=== PATIENT | male | born 1975 | race Caucasian/White ===

== ENCOUNTER 2016-11-22 11:07 | Emergency (ER) | payer OTHER ==
[2016-11-22 11:17] VITALS: BP 154/82; PULSE 79; O2SAT 97
[2016-11-22] MEDS ORDERED: ULTRAM 50 MG PO ONE (11:25)
[2016-11-22] MEDS ORDERED: ULTRAM 50 MG ONE (11:28)
--- NOTE | 2016-11-22 11:34 | ERPHSYRPT ---
- History of Present Illness Time Seen by Provider: 11/22/16 11:20 Source: patient Exam Limitations: clinical condition Patient Subjective Stated Complaint: PT REPORTS LEFT KNEE PAIN ET SWELLING-HAD RAD DONE-QUESTIONS QUALITY OF X-RAY-DX WITH [facility]-SET UP WITH PT-REPORTS PAIN HAS NOT GOTTEN BETTER-DENIES FURTHER INJURY Triage Nursing Assessment: PT PINK WARM ET DRY-NO OBVIOUS DEFORMITY-NO OBVIOUS SWELLING-PT ABLE TO MOVE EXTREMITY Physician History: PATIENT WITH A HISTORY OF DEGENERATIVE ARTHRITIS COMPLAINS OF LEFT KNEE PAIN WITH SWELLING OVER PAST 2 WEEKS. HAS PAIN UPON WEIGHT BEARING. DENIES TRAUMA OR INJURY. Method of Injury: unknown Occurred: other (PAIN FOR 2 WEEKS.) Quality: sharpness Severity of Pain-Max: moderate Severity of Pain-Current: moderate Lower Extremities Pain: knee: left Modifying Factors: Improves With: movement Associated Symptoms: unable to bear weight Allergies/Adverse Reactions: No Known Drug Allergies Allergy (Verified 07/03/15 02:16) Home Medications: Armodafinil [Nuvigil] 250 mg PO DAILY 11/22/16 [History] Chlorthalidone 25 mg PO BID 11/22/16 [History] Fluticasone/Salmeterol 115/21* [Advair Hfa 115/21 Mcg Inhaler] 1 puff IH UD 11/22/16 [History] Minoxidil 10 mg PO DAILY 11/22/16 [History] Spironolactone [Aldactone] 50 mg PO BID 11/22/16 [History] Torsemide [Demadex] 20 mg PO BID 11/22/16 [History] Hx Tetanus, Diphtheria Vaccination/Date Given: Yes Hx Influenza Vaccination/Date Given: No Hx Pneumococcal Vaccination/Date Given: No Immunizations Up to Date: Yes - Review of Systems Constitutional: No Fever, No Chills Eyes: No Symptoms Ears, Nose, & Throat: No Symptoms Respiratory: No Cough, No Dyspnea Cardiac: No Chest Pain, No Edema, No Syncope Abdominal/Gastrointestinal: No Abdominal Pain, No Nausea, No Vomiting, No Diarrhea Genitourinary Symptoms: No Dysuria Musculoskeletal: Joint Pain, Joint Swelling, No Back Pain, No Neck Pain Skin: No Rash Neurological: No Symptoms, No Dizziness, No Focal Weakness, No Sensory Changes Psychological: No Symptoms Endocrine: No Symptoms All Other Systems: Reviewed and Negative - Past Medical History Pertinent Past Medical History: Yes Neurological History: No Pertinent History ENT History: No Pertinent History Cardiac History: Hypertension, Myocardial Infarction ([place]), Other Respiratory History: Asthma, COPD, Sleep Apnea Endocrine Medical History: Adrenal Insufficiency, Diabetes Type II Musculoskeletal History: Osteoarthritis GI Medical History: No Pertinent History History: Renal Disease Psycho-Social History: No Pertinent History Male Reproductive Disorders: No Pertinent History Other Medical History: ENLARGED HEART - Past Surgical History Past Surgical History: Yes Neuro Surgical History: No Pertinent History Cardiac: Cardiac Catheterization Respiratory: No Pertinent History Gastrointestinal: No Pertinent History Genitourinary: No Pertinent History Musculoskeletal: No Pertinent History Male Surgical History: No Pertinent History Other Surgical History: recent removal of toe nail - Social History Smoking Status: Former smoker Exposure to second hand smoke: Yes Alcohol Use: None Drug Use: none Patient Lives Alone: No Significant Family History: heart disease, hypertension - Nursing Vital Signs Nursing Vital Signs: Initial Vital Signs Temperature 97.7 F Temperature Source Oral Pulse Rate 79 Respiratory Rate 22 Blood Pressure [Right Arm] 154/82 Pain Intensity 10 - Physical Exam General Appearance: no apparent distress Knees Exam: left knee: pain (PATELLA MIDLINE AND MOBILE, PAIN UPON PASSIVE RANGE OF MOTION, MINIMAL JOINT LAXITY UPON VARUS/VALGUS STRESS, NEGATIVE ANTERIOR DRAW SIGN. TENDERNESS MEDIAL/LATERAL FEMORAL CONDYLE), soft tissue tenderness, swelling Ankle Exam: left ankle: other (LEFT PEDIS PULSE 2+) SpO2 Interpretation: normal SpO2: 97 Oxygen Delivery: Room Air Ordered Tests: Active Orders 24 hr Category Date Time Status Crutches STAT Care 11/22/16 11:26 Ordered Medication Summary Discontinued Medications Generic Name Dose Route Start Last Admin Trade Name Freq PRN Reason Stop Dose Admin Tramadol HCl 50 mg 11/22/16 11:25 Ultram 50 Mg PO 11/22/16 11:26 STAT ONE - Progress Progress Note: 11/22/16 11:37 PATIENT GIVEN ULTRAM 50MG ORALLY, CRUTCHES WILL NOT SUPPORT WEIGHT 300LBS, REVIEW OF LEFT KNEE XRAYS 11/15/16 C/W MINIMAL DEGENERATIVE CHANGES, THERE IS A 2.5CM WELL CIRCUMSCRIBED OSSIFICATION IN THE MID ANTERIOR JOINT SPACE Counseled pt/family regarding: diagnosis, need for follow-up - Departure Time of Disposition: 11:50 Departure Disposition: Home Clinical Impression: CHRONIC LEFT KNEE PAIN Condition: Stable Critical Care Time: No Additional Instructions: AMBULATE USING WALKER ASSISTANCE NONWEIGHT BEARING LEFT LOWER EXTREMITY UNTIL EVALUATED BY YOUR PRIMARY CARE PROVIDER. ULTRAM 50MG EVERY 4 HOURS FOR PAIN. CONSULT YOUR PRIMARY CARE PROVIDER FOR REFERRAL TO ORTHOPEDIC SURGEON. Prescriptions: Tramadol HCl 50 mg [Ultram 50 mg] 50 mg PO Q4H PRN PRN #20 tablet PRN Reason: Pain
== END 2016-11-22 12:12 | disposition home or self-care (01) ==
LOC: ED 11:07
DX: M25.562 Pain in left knee (principal); G89.29 Other chronic pain
CPT/HCPCS: 99283; A9270-GY

== ENCOUNTER 2017-06-02 15:39 | Emergency (ER) | payer OTHER ==
[2017-06-02] MEDS ORDERED: NORCO 5/325 MG PO ONE (16:31)
[2017-06-02] MEDS ORDERED: NORCO 5/325 MG ONE (16:33)
--- NOTE | 2017-06-02 16:37 | ERPHSYRPT ---
- History of Present Illness Source: patient Exam Limitations: no limitations Patient Subjective Stated Complaint: pt states fell when walking unknown cause denies any erazo at time. pt reports pain to left hip, left knee and lower leg. 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 pt states no numbness or tingling noted no obvious deformity. pt will not attempt to move side due to pain Timing/Duration: today Severity: moderate Associated Symptoms: No vomiting, No abdominal pain, No shortness of breath, No headaches, No syncope Hx Tetanus, Diphtheria Vaccination/Date Given: Yes Hx Influenza Vaccination/Date Given: No Hx Pneumococcal Vaccination/Date Given: No <JOSSELIN CHAVIRA - Last Filed: 06/02/17 18:42> <NOMRA BE - Last Filed: 06/02/17 20:10> - History of Present Illness Time Seen by Provider: 06/02/17 16:32 Physician History: mild to mod constant and positional ache left leg today after trip and fall, no bleeding, no neck pain, no loc, no other injury (JOSSELIN CHAVIRA) Allergies/Adverse Reactions: No Known Drug Allergies Allergy (Verified 07/03/15 02:16) Home Medications: Armodafinil [Nuvigil] 250 mg PO DAILY 11/22/16 [History] Chlorthalidone 25 mg PO DAILY 11/22/16 [History] Fluticasone/Salmeterol 115/21* [Advair Hfa 115/21 Mcg Inhaler] 1 puff IH UD 11/22/16 [History] Minoxidil 10 mg PO DAILY 11/22/16 [History] Spironolactone [Aldactone] 50 mg PO BID 11/22/16 [History] Torsemide [Demadex] 20 mg PO BID 11/22/16 [History] Carvedilol 6.25 mg [Coreg 6.25 MG] 25 mg PO BID 06/02/17 [History] - Review of Systems Constitutional: No Symptoms Eyes: No Symptoms Ears, Nose, & Throat: No Symptoms Respiratory: No Symptoms Cardiac: No Symptoms Abdominal/Gastrointestinal: No Symptoms Musculoskeletal: Back Pain, Fall, Joint Pain, No Neck Pain, No Deformity Skin: No Symptoms Neurological: No Dizziness Psychological: No Symptoms <JOSSELIN CHAVIRA - Last Filed: 06/02/17 18:42> - Past Medical History Pertinent Past Medical History: Yes Neurological History: Peripheral Neuropathy ENT History: No Pertinent History Cardiac History: Hypertension, Myocardial Infarction ([place]) Respiratory History: Asthma, Sleep Apnea Endocrine Medical History: Adrenal Insufficiency, Diabetes Type II Musculoskeletal History: Osteoarthritis GI Medical History: No Pertinent History History: Renal Disease Psycho-Social History: No Pertinent History Male Reproductive Disorders: No Pertinent History Other Medical History: Stage 4 kidney disease, [place] x 2, - Past Surgical History Past Surgical History: Yes Neuro Surgical History: No Pertinent History Cardiac: Cardiac Catheterization Respiratory: No Pertinent History Gastrointestinal: No Pertinent History Genitourinary: No Pertinent History Musculoskeletal: No Pertinent History Male Surgical History: No Pertinent History Other Surgical History: recent removal of toe nail - Social History Smoking Status: Former smoker Exposure to second hand smoke: Yes Alcohol Use: None Drug Use: none Patient Lives Alone: No Significant Family History: heart disease, hypertension <JOSSELIN CHAVIRA - Last Filed: 06/02/17 18:42> - Physical Exam General Appearance: no apparent distress Neck Exam: normal inspection Respiratory Exam: normal breath sounds Cardiovascular Exam: regular rate/rhythm Gastrointestinal/Abdomen Exam: soft, No tenderness Back Exam: No CVA tenderness, No vertebral tenderness Extremity Exam: pelvis stable, limited range of motion, tenderness, No normal range of motion, No pedal edema Neurologic Exam: alert, oriented x 3, cooperative Skin Exam: normal color, warm, dry Oxygen Delivery: Room Air <JOSSELIN CHAVIRA - Last Filed: 06/02/17 18:42> - Nursing Vital Signs Nursing Vital Signs: Initial Vital Signs Temperature 97 F 06/02/17 15:39 Pulse Rate 86 06/02/17 15:39 Respiratory Rate 18 06/02/17 15:39 Blood Pressure 178/89 06/02/17 15:39 Pain Scale Pain Intensity 10 - Radiology Exams Left Hip X-ray Interpretation: Interpreted by me, Negative, No Fracture, No Subluxation Knee X-ray Interpretation: Negative, No Fracture Right Hip X-ray Interpretation: Negative, No Fracture - CT Exams Lumbar Spine CT Interpretation: Discussed w/radiologist, KATHERIN (NO FRACTURE OR SUBLUXATION, SPINAL CANAL STENOSIS) <NORMA BE - Last Filed: 06/02/17 20:10> Ordered Tests: Active Orders 24 hr Category Date Time Status Crutches STAT Care 06/02/17 20:05 Ordered HIP UNI (2V) INCL PEL IF DONE Stat Exams 06/02/17 16:30 Taken KNEE (3 VIEWS) Stat Exams 06/02/17 16:31 Taken LUMBAR SPINE W/O [CT] Stat Exams 06/02/17 16:30 Taken Medication Summary Discontinued Medications Generic Name Dose Route Start Last Admin Trade Name Uzma PRN Reason Stop Dose Admin Hydrocodone Bitart/Acetaminophen 1 tab 06/02/17 16:31 06/02/17 16:34 Wilson 5/325 Mg PO 06/02/17 16:32 1 tab STAT ONE Administration Hydrocodone Bitart/Acetaminophen Confirm 06/02/17 16:33 Wilson 5/325 Mg Administered 06/02/17 16:34 Dose 1 tab .ROUTE .STK-MED ONE <JOSSELIN CHAVIRA - Last Filed: 06/02/17 18:42> - Progress Counseled pt/family regarding: diagnosis, need for follow-up <NORMA BE - Last Filed: 06/02/17 20:10> - Progress Progress Note: 06/02/17 18:[address] Be at 19:00 (JOSSELIN CHAVIRA) 06/02/17 19:[address] W/O CONTRAST CONSISTENT WITH NEGATIVE FRACTURE OR SUBLUXATION, L3-L5 DDD, AND SPINAL CANAL STENOSIS BILAT HIPS WITHOUT FRACTURE OR DISLOCATION. LEFT KNEE NO EVIDENCE OF FRACTURE OR DISLOCATION, DEGENERATIVE CHANGES (NORMA BE) <JOSSELIN CHAVIRA - Last Filed: 06/02/17 18:42> - Departure Time of Disposition: 20:10 Departure Disposition: Home Critical Care Time: No <NORMA BE - Last Filed: 06/02/17 20:10> - Departure Clinical Impression: ACUTE LUMBAR STRAIN, INTERNAL DERANGEMENT LEFT KNEE, BILATERAL HIP CONTUSION/ STRAIN Condition: Stable Referrals: ATTILA RÍOS [Primary Care Provider] - Additional Instructions: AMBULATE USING CRUTCHES NONWEIGHT BEARING LEFT LEG FOR 5 DAYS. APPLY ICE OVER KNEE SWELLING EVERY 4 HOURS, 30 MINUTES FOR 48 HOURS. NORCO 10/325 EVERY 4 HOURS FOR PAIN. FOLLOWUP WITH YOUR ORTHOPEDIC SURGEON CONCERNING KNEE PAIN WITH SWELLING. Prescriptions: Hydrocodone/APAP 10/325 mg [Wilson 10/325 MG Tablet] 1 tab PO Q4H PRN PRN # 15 tablet PRN Reason: Pain
[2017-06-02 20:16] VITALS: BP 156/83; PULSE 83; O2SAT 95
--- NOTE | 2017-06-03 08:28 | XRAY ---
Indication: Pain following fall. Comparison: November 15, 2016. 3 views of the left knee again demonstrates mild tricompartmental degenerative changes and a fabella. No new/acute bony, articular, or soft tissue abnormalities.
--- NOTE | 2017-06-03 08:30 | XRAY ---
Indication: Pain following fall. Comparison: November 15, 2016. 2 views of the left hip obtained. Again no bony, articular, or soft tissue abnormalities.
--- NOTE | 2017-06-03 08:34 | XRAY ---
Indication: Low back/left hip pain following fall. Multiple contiguous axial images obtained through the lumbar spine. Sagittal and coronal reformatted images obtained. Comparison: None No acute fracture or suspicious bony lesions. There are multilevel broad-based disc bulge. Greatest extent seen at the L3-L5 levels along with bilateral degenerative facet arthropathy producing spinal canal stenosis. Sagittal and coronal reformatted images demonstrates normal alignment. Minimal L4-L5 disc space narrowing. No acute compression fracture or subluxation. Visualized noncontrasted soft tissues unremarkable. Impression: 1. Negative acute fracture/subluxation. 2. Multilevel degenerative disc disease greatest at the L3-L5 levels with there is spinal canal stenosis. Outpatient MRI may yield further information. CTDI 151.55
== END 2017-06-02 20:26 | disposition home or self-care (01) ==
LOC: ED 15:39
DX: S39.012A Strain of muscle, fascia and tendon of lower back, initial encounter (principal); M23.92 Unspecified internal derangement of left knee; S70.02XA Contusion of left hip, initial encounter; S70.01XA Contusion of right hip, initial encounter; S73.102A Unspecified sprain of left hip, initial encounter; S73.101A Unspecified sprain of right hip, initial encounter; W01.0XXA Fall on same level from slipping, tripping and stumbling without subsequent striking against object, initial encounter
CPT/HCPCS: 72131; 73502; 73562; 99283; A9270-GY

== ENCOUNTER 2018-04-09 10:04 | Day surgery (SDC) | payer OTHER ==
--- NOTE | 2018-04-09 07:50 | HP ---
DATE OF SURGERY: 04/09/2018 HISTORY OF PRESENT ILLNESS: The patient is a 42 year-old with enlarging lesion on the scalp area with intermittent bleeding. The patient shaves his head. He is in need for definitive excision. He also has a left arm lesion also needing excision. PAST MEDICAL HISTORY: He has had some hypertension, narcolepsy, onychomycosis of toenail. He had some congestive heart failure in the past. He had some dental problems in the past. He also had some history of gout in the past. PAST SURGICAL HISTORY: MEDICATIONS: Torsemide, Spironolactone, Nitro-Stat PRN, minoxidil, Metformin, chlorthalidone, carvedilol, armodafinil, Allopurinol, Advair HFA. ALLERGIES: NKDA. FAMILY HISTORY: Negative in regards to this problem. SOCIAL HISTORY: He is a former smoker denies alcohol abuse. REVIEW OF SYSTEMS: Twelve systems reviewed. No chest pain or palpitations other systems negative or noncontributory as above and per preadmission questionnaire. PHYSICAL EXAMINATION: GENERAL: No acute distress. HEENT: Sclerae nonicteric. Intermittent bleeding of enlarging scalp lesion. NECK: No JVD. CHEST: Equal excursion, nonlabored breathing. CVS: Regular rate and rhythm. ABDOMEN: Soft, nondistended. EXTREMITIES: Left arm lesion indeterminate etiology smaller than the scalp. NEURO: Alert, oriented, moving extremities symmetrically. IMPRESSION: Enlarging, intermittent bleeding lesion of scalp in need of definitive excision as well as left arm lesion indeterminate etiology. I feel he would benefit from excision of both, possible flap depending on operative findings. Risks and benefits explained in detail including but not limited to bleeding or infection, risk of wound dehiscence possibly requiring packing, healing by secondary intent, possibly need for flap, risk of failure to heal, risk of aches, pains, burning or numbness possibly senior care in nature. He understands possible risk should there be any malignancy, risk of involved margins possibly requiring other procedures or ongoing morbidity, general risk of anesthesia or sedation but not limited to. He understands and agrees to the planned procedure, will proceed with outpatient excisional biopsy of enlarging symptomatic intermittent bleeding scalp lesion and left arm lesion possible flap as an outpatient.
[~2018-04-09 10:04] MED LIST: Lactated Ringers 1,000 ML IV ONE; Lactated Ringers 1,000 ML IV SCH; Sensorcaine 0.25% 10 ML ONE
[2018-04-09] MEDS ORDERED: Ketamine HCl 50 MG/ML IV ONE (10:05)
[2018-04-09] MEDS ORDERED: TORAdol 30 mg Injection IV ONE (10:05)
[2018-04-09] MEDS ORDERED: Zofran 4 MG/2 ML VIAL IV ONE (10:05)
[2018-04-09] MEDS ORDERED: Versed 2 MG/2 ML Injection IV ONE (10:05)
[2018-04-09] MEDS ORDERED: SUBLIMAZE 100 MCG/2 ML IV ONE (10:05)
[2018-04-09] MEDS ORDERED: Decadron 4 MG INJ IV ONE (10:05)
[2018-04-09] MEDS ORDERED: Sensorcaine 0.25% 10 ML ONE (12:42)
[2018-04-09] MEDS ORDERED: XYLOCAINE 1% HCL 20 ML MDV ONE (12:44)
[2018-04-09] MEDS ORDERED: MORPHINE SULFATE 2 MG INJ IV PRN (13:49)
[2018-04-09] MEDS ORDERED: NORCO 5/325 MG PO PRN (13:50)
[2018-04-09] MEDS ORDERED: MORPHINE SULFATE 4 MG INJ ONE (13:52)
[2018-04-09 14:22] VITALS: BP 142/86; PULSE 82; O2SAT 92
--- NOTE | 2018-04-10 08:18 | OP ---
SURGERY DATE/TIME: 04/09/2018 1256 PREOPERATIVE DIAGNOSES: 1) Enlarging, intermittent bleeding, scalp lesion of indeterminate etiology. 2) Increasingly painful, enlarging left arm lesion. POSTOPERATIVE DIAGNOSES: 1) Enlarging, intermittent bleeding, scalp lesion of indeterminate etiology. 2) Increasingly painful, enlarging left arm lesion. PROCEDURES: 1) Excisional biopsy of intermittent bleeding scalp lesion with intermediate closure (1 cm with margins). 2) Excisional biopsy of painful left arm lesion with intermediate closure (1 cm with margins). SURGEON: Dr. Jayy Balkely. ANESTHESIA: MAC, 1% lidocaine local. ESTIMATED BLOOD LOSS: Minimal. INDICATIONS: As noted above. Risks and benefits explained in detail and not limited to and consent obtained. DESCRIPTION OF PROCEDURE AND FINDINGS: The patient is taken to the operating room. MAC anesthesia induced. Given his body habitus and other issues anesthesia was concerned about putting under general anesthetic so did MAC anesthesia. He was prepped and draped in usual sterile fashion. After official time out and no disagreement with planned procedure, 1% lidocaine local infiltrated in field pattern around the scalp area. Dissection carried out around this dissecting down to normal appearing deep subcutaneous tissue. This is about a 1 cm lesion with margins with about 3 cm long spindle-shaped excision pattern. It was a little bit snug given the location on the scalp but flaps were undermined on either side advanced back towards the midline with some interrupted 3-0 Vicryl. The skin was closed with interrupted vertical mattress and interrupted 3-0 and 4-0 Prolene, some antibiotic ointment, sterile pressure dressing applied at the end of the procedure and this all had been accomplished at 1% lidocaine local infiltrated around the wound prior to excising. Good hemostasis noted. The patient tolerated this part of the procedure well. Attention is then turned to the left arm. Gloves and instruments were changed. The area is anesthetized with 1% lidocaine local. Spindle-shaped excision pattern carried down to normal appearing deeper subcutaneous tissue passing the specimen off. It measured about 1 cm with margins about 3 cm long spindle-shaped excision pattern. Hemostasis controlled with some pin point cautery. Good hemostasis noted. The wound is then closed with interrupted 3-0 Vicryl. Deep superficial subcu in intermediate fashion advancing the flaps back towards the midline. The skin is closed with 4-0 Vicryl running subcuticular fashion, Steri-Strips, sterile pressure dressing applied. The patient tolerated the procedure well. There were no immediate complications. Findings discussed with the family out in the waiting area.
== END 2018-04-09 14:36 | disposition home or self-care (01) ==
LOC: SDC 10:04
PROVIDERS: ATTEND Surgery
DX: D23.4 Other benign neoplasm of skin of scalp and neck (principal); L98.8 Other specified disorders of the skin and subcutaneous tissue; R20.8 Other disturbances of skin sensation; M79.602 Pain in left arm; D18.01 Hemangioma of skin and subcutaneous tissue; R58 Hemorrhage, not elsewhere classified; I10 Essential (primary) hypertension; E11.9 Type 2 diabetes mellitus without complications; Z79.4 Long term (current) use of insulin; G47.419 Narcolepsy without cataplexy; B35.1 Tinea unguium; I50.9 Heart failure, unspecified; M10.9 Gout, unspecified; H15.89 Other disorders of sclera; Z79.899 Other long term (current) drug therapy; Z87.891 Personal history of nicotine dependence
CPT/HCPCS: 82962; 94250; J1100; J1885; J2250; J2270; J2405; J3010; A9270-GY

== ENCOUNTER 2018-06-19 13:27 | Emergency (ER) | payer OTHER ==
[2018-06-19 13:41] VITALS: O2SAT 98
--- NOTE | 2018-06-19 14:18 | ERPHSYRPT ---
- History of Present Illness Time Seen by Provider: 06/19/18 14:02 Source: patient Exam Limitations: no limitations Patient Subjective Stated Complaint: STATES COUGH AND SORE THROAT SINCE MONDAY Triage Nursing Assessment: TO ROOM PER EMS COT. SKIN W/D, COLOR NORMAL, RESP EASY. OCCASIONAL DRY BARKY COUGH NOTED. DENIES ANY OTHER SYMPTOMS Physician History: 43-year-old white male with history of peripheral neuropathy, myocardial infarction, asthma, sleep apnea, adrenal insufficiency, diabetes, osteoarthritis , renal disease (stage IV kidney disease), myocardial infarction. Patient arrives with complaint of cough sore throat some mild shortness of breath since Monday Patient states he has some discomfort in his upper chest with coughing not otherwise He has not had a fever Patient was given a DuoNeb treatment prior to arrival by medics Timing/Duration: day(s) Severity: moderate (2 days) Modifying Factors: Improves With: nothing Associated Symptoms: shortness of breath, cough, No nausea, No vomiting, No abdominal pain, No heartburn, No diaphoresis, No chills, No fever, No headaches , No loss of appetite, No malaise, No rash, No syncope, No seizure, No weakness Allergies/Adverse Reactions: No Known Drug Allergies Allergy (Verified 06/19/18 13:34) Home Medications: Armodafinil [Nuvigil] 250 mg PO DAILY 11/22/16 [History] Chlorthalidone 25 mg PO DAILY 11/22/16 [History] Fluticasone/Salmeterol 115/21* [Advair Hfa 115/21 Mcg Inhaler] 2 puff IH BID 11/22/16 [History] Minoxidil 10 mg PO DAILY 11/22/16 [History] Spironolactone [Aldactone] 50 mg PO BID 11/22/16 [History] Torsemide [Demadex] 20 mg PO BID 11/22/16 [History] Allopurinol [Zyloprim] 200 mg PO DAILY 04/03/18 [History] Carvedilol [Coreg] 25 mg PO BID 04/03/18 [History] Metformin HCl [Glucophage] 1,000 mg PO DAILY 04/03/18 [History] Nitroglycerin 0.4 mg (Ed) [Nitrostat 0.4 MG (ED)] 0.4 mg SL UD 04/03/18 [ History] Hx Tetanus, Diphtheria Vaccination/Date Given: Yes Hx Influenza Vaccination/Date Given: No Hx Pneumococcal Vaccination/Date Given: No Immunizations Up to Date: No - Review of Systems Constitutional: No Fever, No Chills Eyes: No Symptoms Ears, Nose, & Throat: Throat Pain, No Ear Pain, No Ear Discharge, No Hearing Changes, No Tinnitus, No Nose Pain, No Nose Congestion, No Nose Discharge, No Sinus Drainage, No Epistaxis, No Mouth Pain, No Mouth Swelling, No Loose Teeth, No Throat Swelling, No Hoarse, No Painful Swallowing, No Snoring Respiratory: Cough, Dyspnea, No Cyanosis, No Dyspnea on Exertion (SUTTON), No Stridor, No Wheezing Cardiac: No Chest Pain, No Edema, No Syncope Abdominal/Gastrointestinal: No Abdominal Pain, No Nausea, No Vomiting, No Diarrhea Genitourinary Symptoms: No Dysuria Musculoskeletal: No Back Pain, No Neck Pain Skin: No Rash Neurological: No Dizziness, No Focal Weakness, No Sensory Changes Psychological: No Symptoms Endocrine: No Symptoms All Other Systems: Reviewed and Negative - Past Medical History Pertinent Past Medical History: Yes Neurological History: No Pertinent History ENT History: No Pertinent History Cardiac History: Hypertension Respiratory History: Asthma, COPD, Sleep Apnea, Other Endocrine Medical History: Diabetes Type II Musculoskeletal History: Osteoarthritis GI Medical History: No Pertinent History History: Renal Disease Psycho-Social History: No Pertinent History Male Reproductive Disorders: No Pertinent History Other Medical History: Stage 4 kidney disease, NC x 2, narcolepsy - Past Surgical History Past Surgical History: Yes Neuro Surgical History: No Pertinent History Cardiac: Cardiac Catheterization Respiratory: No Pertinent History Gastrointestinal: No Pertinent History Genitourinary: No Pertinent History Musculoskeletal: Other Male Surgical History: No Pertinent History Other Surgical History: recent removal of toe nail, knee scope. - Social History Smoking Status: Never smoker Exposure to second hand smoke: Yes Alcohol Use: None Drug Use: none Patient Lives Alone: No Significant Family History: heart disease, hypertension - Nursing Vital Signs Nursing Vital Signs: Initial Vital Signs Temperature 98 F 06/19/18 13:28 Pulse Rate 97 H 06/19/18 13:28 Respiratory Rate 16 06/19/18 13:28 Blood Pressure 163/102 06/19/18 13:28 O2 Sat by Pulse Oximetry 98 06/19/18 13:28 Pain Scale Pain Intensity 0 - Physical Exam General Appearance: other (well-developed well-nourished obest white male, frequent cough) Eye Exam: PERRL/EOMI, eyes nml inspection Ears, Nose, Throat Exam: normal ENT inspection, TMs normal, pharynx normal, moist mucous membranes Neck Exam: normal inspection, non-tender, supple, full range of motion Respiratory Exam: normal breath sounds, lungs clear, No respiratory distress Cardiovascular Exam: regular rate/rhythm, normal heart sounds, normal peripheral pulses, capillary refill <2 sec Gastrointestinal/Abdomen Exam: soft, normal bowel sounds, No tenderness, No mass Back Exam: normal inspection, normal range of motion, No CVA tenderness, No vertebral tenderness Extremity Exam: normal inspection, normal range of motion, pelvis stable Neurologic Exam: alert, oriented x 3, cooperative, foreign agent II-XII nml as tested, normal mood/affect, nml cerebellar function, nml station & gait, sensation nml, No motor deficits Skin Exam: normal color, warm, dry, No rash Lymphatic Exam: No adenopathy SpO2 Interpretation: normal (98%Must decide) SpO2: 98 - Course Nursing assessment & vital signs reviewed: Yes EKG Interpreted by Me: RATE (85 bpm), Sinus Rhythm, NORMAL AXIS, 1st degree AV Block, Other (EKG: Sinus rhythm with first-degree AV block, 85 bpm, normal axis , no acute ST or T wave changes, compared to February 07, 2017) - Radiology Exams Chest X-ray Interpretation: Discussed w/ radiologist (chest x-ray: Impression: 1. Hypoinflated chest revealing no gross evididence of air space infiltrates, heart failure, or other acute cardiopulmonary disease.) Ordered Tests: Active Orders 24 hr Category Date Time Status EKG-ER Only STAT Care 06/19/18 15:06 Active IV Insertion STAT Care 06/19/18 14:14 Active Pulse Oximetry (ED) STAT Care 06/19/18 14:14 Active CHEST 1 VIEW (PORTABLE) Stat Exams 06/19/18 14:14 Completed BLOOD CULTURE Stat Lab 06/19/18 14:20 Received CBC W DIFF Stat Lab 06/19/18 14:20 Completed CMP Stat Lab 06/19/18 14:20 Completed NT PRO BNP Stat Lab 06/19/18 14:20 Completed TROPONIN Stat Lab 06/19/18 14:20 Completed VENOUS BLOOD GAS Stat Lab 06/19/18 14:25 Completed Medication Summary Discontinued Medications Generic Name Dose Route Start Last Admin Trade Name Uzma PRN Reason Stop Dose Admin Aspirin 243 mg 06/19/18 16:01 06/19/18 16:17 Baby Aspirin 81 Mg Chew PO 06/19/18 16:02 243 mg STAT ONE Administration Aspirin Confirm 06/19/18 16:13 Baby Aspirin 81 Mg Chew Administered 06/19/18 16:14 Dose 243 mg .ROUTE .STK-MED ONE Ceftriaxone Sodium/Dextrose 1 g in 50 mls @ 100 mls/hr 06/19/18 16:09 16:17 Rocephin 1 Gm-D5w 50 Ml Bag IV 06/19/18 16:38 100 ml/hr STAT STA 100 mls/hr Administration Ceftriaxone Sodium/Dextrose Confirm 06/19/18 16:13 Rocephin 1 Gm-D5w 50 Ml Bag Administered 06/19/18 16:14 Dose 1 g in 50 mls @ ud IV .STK-MED ONE Methylprednisolone Sodium Succinate 125 mg 06/19/18 16:09 06/19/18 16:17 Solu-Medrol 125 Mg IV 06/19/18 16:10 125 mg STAT ONE Administration Methylprednisolone Sodium Succinate Confirm 06/19/18 16:13 Solu-Medrol 125 Mg Administered 06/19/18 16:14 Dose 125 mg .ROUTE .STK-MED ONE Nicotine 21 mg 06/19/18 17:01 Nicoderm Cq 21 Mg TOP 06/19/18 17:02 STAT ONE Lab/Rad Data: Laboratory Result Diagrams 06/19/18 14:20 06/19/18 14:20 Laboratory Results 06/19/18 06/19/18 06/19/18 Range/Units 14:54 14:25 14:20 WBC (4.0-10.5) K/mm3 RBC (4.1-5.6) M/mm3 Hgb (12.5-18.0) gm/dl Hct (42-50) % MCV (78-100) fl MCH (26-32) pg MCHC (32-36) g/dl RDW (11.5-14.0) % Plt Count (150-450) K/mm3 MPV (6-9.5) fl Gran % (36.0-66.0) % Eos # (Auto) (0-0.5) Absolute Lymphs (auto) (1.0-4.6) Absolute Monos (auto) (0.0-1.3) Lymphocytes % (24.0-44.0) % Monocytes % (0.0-12.0) % Eosinophils % (0.00-5.0) % Basophils % (0.0-0.4) % Absolute Granulocytes (1.4-6.9) Basophils # (0-0.4) pO2/FiO2 Ratio 21.0 % VBG pH 7.40 (7.32-7.42) VBG pCO2 at Pat Temp 53 (42-55) mm/Hg VBG pO2 at Pat Temp 29 (25-40) mm/Hg VBG HCO3 32.8 H* (22-28) meq/L VBG O2 Sat (Elham) 60.9 L (95-100) VBG Base Excess 6.3 H (-2.0-2.0) VBG Hemoglobin 14.9 VBG Carboxyhemoglobin 2.2 (0.0-6.9) % T HGB POC Potassium 3.9 (3.5-5.1) Sodium 141 (137-145) mmol/L Potassium 4.1 (3.5-5.1) mmol/L Chloride 104 (98-107) mmol/L Carbon Dioxide 31 H (22-30) mmol/L Anion Gap 9.5 (5-15) MEQ/L BUN 22 H (9-20) mg/dL Creatinine 1.26 H (0.66-1.25) mg/dL Estimated GFR > 60.0 ML/MIN Glucose 105 (74-106) mg/dL Calcium 9.4 (8.4-10.2) mg/dL Total Bilirubin 0.40 (0.2-1.3) mg/dL AST 33 (17-59) U/L ALT 33 (0-50) U/L Alkaline Phosphatase 87 (38-126) U/L Troponin I 0.044 H* (0.000-0.034) ng/mL NT-Pro-B Natriuret Pep 47.1 (0-450) pg/mL Serum Total Protein 7.0 (6.3-8.2) g/dL Albumin 3.9 (3.5-5.0) g/dL Influenza Type A Ag NEGATIVE (NEGATIVE) Influenza Type B Ag NEGATIVE (NEGATIVE) RSV (PCR) NEGATIVE (Negative) Group A Strep Antibody NEGATIVE (NEGATIVE) 06/19/18 Range/Units 14:20 WBC 7.6 (4.0-10.5) K/mm3 RBC 4.91 (4.1-5.6) M/mm3 Hgb 13.8 (12.5-18.0) gm/dl Hct 42.1 (42-50) % MCV 85.7 (78-100) fl MCH 28.1 (26-32) pg MCHC 32.8 (32-36) g/dl RDW 15.2 H (11.5-14.0) % Plt Count 160 (150-450) K/mm3 MPV 10.2 H (6-9.5) fl Gran % 67.0 H (36.0-66.0) % Eos # (Auto) 0.30 (0-0.5) Absolute Lymphs (auto) 1.38 (1.0-4.6) Absolute Monos (auto) 0.78 (0.0-1.3) Lymphocytes % 18.3 L (24.0-44.0) % Monocytes % 10.3 (0.0-12.0) % Eosinophils % 4.0 (0.00-5.0) % Basophils % 0.4 (0.0-0.4) % Absolute Granulocytes 5.07 (1.4-6.9) Basophils # 0.03 (0-0.4) pO2/FiO2 Ratio % VBG pH (7.32-7.42) VBG pCO2 at Pat Temp (42-55) mm/Hg VBG pO2 at Pat Temp (25-40) mm/Hg VBG HCO3 (22-28) meq/L VBG O2 Sat (Elham) (95-100) VBG Base Excess (-2.0-2.0) VBG Hemoglobin VBG Carboxyhemoglobin (0.0-6.9) % T HGB POC Potassium (3.5-5.1) Sodium (137-145) mmol/L Potassium (3.5-5.1) mmol/L Chloride (98-107) mmol/L Carbon Dioxide (22-30) mmol/L Anion Gap (5-15) MEQ/L BUN (9-20) mg/dL Creatinine (0.66-1.25) mg/dL Estimated GFR ML/MIN Glucose (74-106) mg/dL Calcium (8.4-10.2) mg/dL Total Bilirubin (0.2-1.3) mg/dL AST (17-59) U/L ALT (0-50) U/L Alkaline Phosphatase (38-126) U/L Troponin I (0.000-0.034) ng/mL NT-Pro-B Natriuret Pep (0-450) pg/mL Serum Total Protein (6.3-8.2) g/dL Albumin (3.5-5.0) g/dL Influenza Type A Ag (NEGATIVE) Influenza Type B Ag (NEGATIVE) RSV (PCR) (Negative) Group A Strep Antibody (NEGATIVE) - Progress Progress: improved Progress Note: 06/19/18 16:10 43-year-old morbidly obese white male with history of peripheral neuropathy myocardial infarction asthma sleep apnea adrenal insufficiency diabetes type 2 osteoarthritis renal disease and a myocardial infarction 2 He arrives with complaint of a burning pain in his upper chest and throat with coughing symptoms for 2 days Patient was seen by medics prior to arrival given albuterol treatment and patient is now breathing much easier he does not appear to be in acute distress. Patient's EKG remarkable for sinus rhythm with first-degree AV block 85 bpm normal axis no acute ST or T wave changes chest x-ray was remarkable for hypoinflated chest revealing no gross evidence of airspace infiltrates heart daily or or other acute cardiopulmonary disease Patient's CBC was normal patient's venous gases pH 7.4 PCO2 53 Patient's chemistry essentially normal with the exception BUN was 22 creatinine 1.26 patient's troponin was slightly elevated at 0.044 BNP was normal at 47.1 patient's glucose was 105 strep and influenza were negative Patient was given aspirin to 43 mg orally he had already taken 81 mg at home today. I've discussed the case initially with Dr. 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 I contacted Dr. Adorno discussed the patient's case with him will transfer patient to [facility]. Patient will be given Solu-Medrol 125 mg IV also Rocephin 1 g IV in addition to the aspirin he is already received. Patient is stable with stable vitals he has no acute changes on his EKG. ... 06/19/18 16:17 I contacted [facility] one call discussed with Иван through the one call service. Patient will be auto accepted. Receiving doctor will be Dr. Gray. Patient will be transferred by ambulance. - Departure Time of Disposition: 17:00 Departure Disposition: Transfer ([facility]) Clinical Impression: Bronchitis with bronchospasm, Elevated troponin, Pain in throat and chest Condition: Fair Critical Care Time: No Referrals: ATTILA RÍOS [Primary Care Provider] -
[2018-06-19 14:27] LABS: VBG BASE EXCESS 6.3 (-2.0-2.0); VBG CARBOXYHEMOGLOBIN 2.2 % T HGB (0.0-6.9); VBG HCO3- 32.8 meq/L (22-28); VBG HEMOGLOBIN 14.9; VBG O2 SATURATION 60.9 (95-100); VBG POTASSIUM 3.9 (3.5-5.1); VBG pH 7.4 (7.32-7.42)
--- NOTE | 2018-06-19 15:02 | XRAY ---
Exam: AP upright portable chest film from 06/19/2018. Comparison: AP portable chest film from 02/27/2013. Indication: 43-year-old male with cough. The patient is noted to be large. The lungs are hypoinflated. The heart size appears at the upper limits of normal. There is some magnification on this AP portable chest radiograph obtained with a relatively poor inspiratory effort. This can accentuate the heart size. Minimal epicardial fat is seen at the left cardiophrenic angle. There is mild tortuosity of the descending thoracic aorta. The remainder of the josephine and mediastinal structures appears unremarkable. The lung esparza reveal no air space infiltrates, central vascular congestion, pneumothorax, or pleural fluid. I believe there is some minor vascular crowding at the lung bases, likely due to the poor level of inspiration. No acute osseous process is seen. Prominent lateral osteophyte formation is seen within the spine. Impression: 1. Hypoinflated chest revealing no gross evidence of air space infiltrates, heart failure, or other acute cardiopulmonary disease.
[2018-06-19 15:15] LABS: BASOPHIL % 0.4 % (0.0-0.4); Basophil (Absolute #) 0.03 (0-0.4); Granulocyte Absolute (ANC) 5.07 (1.4-6.9); Hematocrit 42.1 % (42-50); Hemoglobin 13.8 gm/dl (12.5-18.0); Lymphocyte (Absolute #) 1.38 (1.0-4.6); Lymphocytes % 18.3 % (24.0-44.0); Mean Cell Volume 85.7 fl (78-100); Mean Corpuscular Hemoglobin 28.1 pg (26-32); Mean Corpuscular Hgb Concent. 32.8 g/dl (32-36); Mean Platelet Volume 10.2 fl (6-9.5); Monocyte (Absolute #) 0.78 (0.0-1.3); Monocytes % 10.3 % (0.0-12.0); Platelet Count 160 K/mm3 (150-450); Red Blood Count 4.91 M/mm3 (4.1-5.6); Red Cell Distribution Width 15.2 % (11.5-14.0); White Blood Count 7.6 K/mm3 (4.0-10.5)
[2018-06-19 15:17] VITALS: PULSE 83
[2018-06-19 15:33] LABS: ALBUMIN 3.9 g/dL (3.5-5.0); ALKALINE PHOSPHATASE 87 U/L (38-126); ANION GAP 9.5 MEQ/L (5-15); BLOOD UREA NITROGEN 22 mg/dL (9-20); CHLORIDE 104 mmol/L (98-107); Calcium 9.4 mg/dL (8.4-10.2); Carbon Dioxide 31 mmol/L (22-30); Creatinine 1 1.26 mg/dL (0.66-1.25); Glucose 105 mg/dL (74-106); NT PRO BNP 47.1 pg/mL (0-450); Potassium 4.1 mmol/L (3.5-5.1); SGOT/AST 33 U/L (17-59); SGPT/ALT 33 U/L (0-50); SODIUM 141 mmol/L (137-145)
[2018-06-19 15:52] LABS: INFLUENZA A NEGATIVE (NEGATIVE); INFLUENZA B NEGATIVE (NEGATIVE); RESPIRATORY SYNCTIAL VIRUS NEGATIVE (Negative)
[2018-06-19 15:52] LABS: TROPONIN 0.044 ng/mL (0.000-0.034)
[2018-06-19] MEDS ORDERED: BABY ASPIRIN 81 MG CHEW PO ONE (16:01)
[2018-06-19] MEDS ORDERED: ROCEPHIN 1 Gm-D5w 50 ml Bag** 1 G/50 ML IVPB IV STA (16:09)
[2018-06-19] MEDS ORDERED: solu-MEDROL 125 MG IV ONE (16:09)
[2018-06-19] MEDS ORDERED: solu-MEDROL 125 MG ONE (16:13)
[2018-06-19] MEDS ORDERED: BABY ASPIRIN 81 MG CHEW ONE (16:13)
[2018-06-19] MEDS ORDERED: ROCEPHIN 1 Gm-D5w 50 ml Bag** 1 G/50 ML IVPB IV ONE (16:13)
[2018-06-19] MEDS ORDERED: Nicoderm CQ 21 MG TOP ONE (17:01)
[2018-06-19 17:03] VITALS: BP 182/103
== END 2018-06-19 17:00 | disposition short-term general hospital (02) ==
LOC: ED 13:27
DX: J40 Bronchitis, not specified as acute or chronic (principal); J98.01 Acute bronchospasm; R77.8 Other specified abnormalities of plasma proteins; R07.9 Chest pain, unspecified; J02.9 Acute pharyngitis, unspecified; E11.9 Type 2 diabetes mellitus without complications; Z79.899 Other long term (current) drug therapy; I25.2 Old myocardial infarction; Z79.84 Long term (current) use of oral hypoglycemic drugs; I10 Essential (primary) hypertension; I44.0 Atrioventricular block, first degree
CPT/HCPCS: 36000; 36415; 71045; 80053; 82805; 83880; 84484; 85025; 87040; 87631; 87651; 93005; 96365; 96374; 99285; J0696; J2930; A9270-GY

== ENCOUNTER 2018-07-04 08:27 | Day surgery (SDC) | payer OTHER ==
[2013-02-27 23:46] VITALS: BP 168/78
[2018-07-04] MEDS ORDERED: DIPRIVAN 200 MG/20 ML IV ONE (08:28)
[2018-07-04] MEDS ORDERED: Depo-Medrol 40 MG/ML IM ONE (08:28)
[2018-07-04] MEDS ORDERED: Marcaine 0.5% SDV 10 ML IJ ONE (08:28)
--- NOTE | 2018-07-04 12:13 | XRAY ---
Indication: Left knee injection. Intraoperative fluoroscopy was provided for 7 seconds. 2 digital spot images submitted for interpretation demonstrates single needle tip projecting in the intercondylar notch. Small amount of contrast injected for needle tip placement. Correlate with intraoperative findings/report.
--- NOTE | 2018-07-04 12:17 | XRAY ---
7 seconds fluoroscopy time in surgery for left knee injection.
[2018-07-04] MEDS ORDERED: Lactated Ringers 1,000 ML IV ONE (14:44)
== END 2018-07-04 11:02 | disposition home or self-care (01) ==
LOC: SDC-PAIN 08:27
PROVIDERS: ATTEND Psychiatry & Neurology Pain Medicine
DX: M17.12 Unilateral primary osteoarthritis, left knee (principal); E11.9 Type 2 diabetes mellitus without complications; Z79.899 Other long term (current) drug therapy
CPT/HCPCS: 20610; 73560; 76000; 77002; 82962; J1030; J2704; Q9966

== ENCOUNTER 2019-02-20 14:07 | Day surgery (SDC) | payer MEDICARE ==
[2013-02-27 23:46] VITALS: BP 168/78
[2019-02-20] MEDS ORDERED: Xylocaine 1% Vial 30 ML PF IJ ONE (14:08)
[2019-02-20] MEDS ORDERED: Marcaine 0.5% SDV 10 ML IJ ONE (14:08)
[2019-02-20] MEDS ORDERED: Depo-Medrol 40 MG/ML IM ONE (14:08)
--- NOTE | 2019-02-20 18:41 | XRAY ---
10 seconds of fluoroscopy was used in surgery for a left intra-articular knee injection.
--- NOTE | 2019-02-20 18:42 | XRAY ---
Indication: Left knee injection. Intraoperative fluoroscopy was provided for 10 seconds. Single digital spot image submitted for interpretation demonstrates needle tip projecting over the left femur intercondylar notch. Small amount of contrast injected for needle tip placement. Correlate with intraoperative findings/report.
== END 2019-02-20 16:49 | disposition home or self-care (01) ==
LOC: SDC-PAIN 14:07
PROVIDERS: ATTEND Psychiatry & Neurology Pain Medicine
DX: M17.12 Unilateral primary osteoarthritis, left knee (principal); M10.9 Gout, unspecified; G47.30 Sleep apnea, unspecified; G47.419 Narcolepsy without cataplexy; E11.22 Type 2 diabetes mellitus with diabetic chronic kidney disease; I12.9 Hypertensive chronic kidney disease with stage 1 through stage 4 chronic kidney disease, or unspecified chronic kidney disease; N18.4 Chronic kidney disease, stage 4 (severe); Z79.899 Other long term (current) drug therapy
CPT/HCPCS: 20610; 73560; 77002; 82962; J1030; J2001; Q9966

== ENCOUNTER 2019-04-05 12:56 | Emergency (ER) | payer MEDICARE ==
--- NOTE | 2019-04-05 13:04 | ERPHSYRPT ---
- History of Present Illness Time Seen by Provider: 04/05/19 13:03 Source: patient, EMS Exam Limitations: no limitations Physician History: 43 y/o morbidly obese diabetic white male with htn hurt right knee while moving a couch. pt felt a pop then pain. hurts to bear weight. pt has h/o gout. Occurred: just prior to arrival Reason for Fall: unknown Injuries/Pain Location: lower extremity (right knee) Loss of Consciousness: no loss of consciousness Severity of Pain-Max: moderate Severity of Pain-Current: moderate Modifying Factors: Improves With: movement (hurts knee) Associated Symptoms (Fall): extremity injury (right knee), trouble walking, No shortness of breath, No slurred speech Allergies/Adverse Reactions: No Known Drug Allergies Allergy (Verified 04/05/19 13:07) Home Medications: Armodafinil [Nuvigil] 250 mg PO DAILY 11/22/16 [History] Chlorthalidone 25 mg PO DAILY 11/22/16 [History] Fluticasone/Salmeterol 115/21* [Advair Hfa 115/21 Mcg Inhaler] 2 puff IH BID 11/22/16 [History] Minoxidil 10 mg PO DAILY 11/22/16 [History] Spironolactone [Aldactone] 50 mg PO BID 11/22/16 [History] Torsemide [Demadex] 20 mg PO BID 11/22/16 [History] Allopurinol [Zyloprim] 200 mg PO DAILY 04/03/18 [History] Carvedilol [Coreg] 25 mg PO BID 04/03/18 [History] Metformin HCl [Glucophage] 1,000 mg PO DAILY 04/03/18 [History] Nitroglycerin 0.4 mg (Ed) [Nitrostat 0.4 MG (ED)] 0.4 mg SL UD 04/03/18 [ History] Bumetanide [Bumex] 2 mg PO BID 04/05/19 [History] Doxazosin Mesylate 4 mg PO DAILY 04/05/19 [History] Losartan Potassium 100 mg PO DAILY 04/05/19 [History] Oxycodone HCl/Acetaminophen [Oxycodone-Acetaminophen 5-325] 1 tablet PO BID PRN 04/05/19 [History] Probenecid 500 mg PO BID 04/05/19 [History] Tramadol HCl 50 mg [Ultram 50 mg] 50 mg PO Q4H PRN 04/05/19 [History] Hx Tetanus, Diphtheria Vaccination/Date Given: Yes Hx Influenza Vaccination/Date Given: No Hx Pneumococcal Vaccination/Date Given: No - Review of Systems Constitutional: No Symptoms Eyes: No Symptoms Ears, Nose, & Throat: No Symptoms Respiratory: No Symptoms Cardiac: No Symptoms Abdominal/Gastrointestinal: No Symptoms Genitourinary Symptoms: No Symptoms Musculoskeletal: Joint Pain (right knee) Skin: No Symptoms Neurological: No Symptoms Psychological: No Symptoms Endocrine: No Symptoms Hematologic/Lymphatic: No Symptoms Immunological/Allergic: No Symptoms All Other Systems: Reviewed and Negative - Past Medical History Pertinent Past Medical History: Yes Neurological History: No Pertinent History ENT History: No Pertinent History Cardiac History: Hypertension Respiratory History: Asthma, Bronchitis, COPD Endocrine Medical History: Diabetes Type II Musculoskeletal History: Arthritis GI Medical History: No Pertinent History History: Renal Disease Psycho-Social History: No Pertinent History Male Reproductive Disorders: No Pertinent History Other Medical History: Stage 4 kidney disease - Past Surgical History Past Surgical History: Yes Neuro Surgical History: No Pertinent History Cardiac: Cardiac Catheterization Respiratory: No Pertinent History Gastrointestinal: No Pertinent History Genitourinary: No Pertinent History Musculoskeletal: Other Male Surgical History: No Pertinent History Other Surgical History: recent removal of toe nail, knee scope. - Social History Smoking Status: Never smoker Exposure to second hand smoke: Yes Alcohol Use: None Drug Use: none Patient Lives Alone: No Significant Family History: heart disease, hypertension - Nursing Vital Signs Nursing Vital Signs: Initial Vital Signs Temperature 98.1 F 04/05/19 12:58 Pulse Rate 69 04/05/19 12:58 Respiratory Rate 18 04/05/19 12:58 Blood Pressure 143/93 04/05/19 12:58 O2 Sat by Pulse Oximetry 96 04/05/19 12:58 Pain Scale Pain Intensity 8 - Toshia Coma Score Best Eye Response (Pointblank): (4) open spontaneously Best Verbal Response (Toshia): (5) oriented Best Motor Response (Pointblank): (6) obeys commands Toshia Total: 15 - Physical Exam General Appearance: mild distress, alert, anxiety Head Injury: no evidence of injury Eye Exam: PERRL/EOMI, eyes nml inspection ENT Exam: airway nml, nml ext.inspection Neck Exam: supple, trachea midline, full range of motion, normal alignment, normal inspection Respiratory/Chest Exam: No chest tenderness Gastrointestinal Exam: No tenderness Rectal Exam: not done Back Exam: normal inspection, normal range of motion, No CVA tenderness, No vertebral tenderness Extremity Exam: normal inspection, normal range of motion Neurologic Exam: alert, oriented x 3, cooperative, acetone button paster II-XII nml as tested, normal mood/affect, nml cerebellar function Skin Exam: normal color, warm, dry SpO2 Interpretation: normal O2 Delivery: Room Air Ordered Tests: Active Orders 24 hr Category Date Time Status KNEE (3 VIEWS) Stat Exams 04/05/19 13:04 Completed Medication Summary Discontinued Medications Generic Name Dose Route Start Last Admin Trade Name Freq PRN Reason Stop Dose Admin Ibuprofen 600 mg 04/05/19 14:22 Motrin 600 Mg PO 04/05/19 14:23 STAT ONE Ibuprofen Confirm 04/05/19 14:24 Motrin 600 Mg Administered 04/05/19 14:25 Dose 600 mg .ROUTE .STK-MED ONE Oxycodone/Acetaminophen 1 tab 04/05/19 14:21 Percocet Tablet 5/325mg PO 04/05/19 14:22 STAT STA Oxycodone/Acetaminophen Confirm 04/05/19 14:24 Percocet Tablet 5/325mg Administered 04/05/19 14:25 Dose 1 tab .ROUTE .STK-MED ONE - Progress Progress: unchanged Progress Note: 04/05/19 14:28 xray right knee-no acute fx or dislocation. fabella posteriorly present. pt does not want norco but takes and is out of his oxycodone 5/325. is aware and agrees. Counseled pt/family regarding: diagnosis, need for follow-up, rad results - Departure Departure Disposition: Home Clinical Impression: Right knee pain Condition: Stable Critical Care Time: No Referrals: ATTILA RÍOS [Primary Care Provider] - Additional Instructions: add ibuprofen 600mg orally 3 times daily with food. follow up with your pain management doctor and your primary doctor for further management Prescriptions: Oxycodone HCl/Acetaminophen [Percocet 5-325 mg Tablet] 1 each PO Q12H PRN PRN # 5 tablet MDD 2 PRN Reason: Pain
--- NOTE | 2019-04-05 13:38 | XRAY ---
Indication: Pain following fall. Comparison: None 3 views of the right knee demonstrates fabella posterior to the lateral condyle. No other bony, articular, or soft tissue abnormalities.
[2019-04-05 13:50] VITALS: PULSE 70
[2019-04-05 14:14] VITALS: BP 150/74; O2SAT 97
[2019-04-05] MEDS ORDERED: PERCOCET TABLET 5/325MG PO STA (14:21)
[2019-04-05] MEDS ORDERED: MOTRIN 600 MG PO ONE (14:22)
[2019-04-05] MEDS ORDERED: PERCOCET TABLET 5/325MG ONE (14:24)
[2019-04-05] MEDS ORDERED: MOTRIN 600 MG ONE (14:24)
== END 2019-04-05 14:54 | disposition home or self-care (01) ==
LOC: ED 12:56
DX: M25.561 Pain in right knee (principal); X50.0XXA Overexertion from strenuous movement or load, initial encounter; X50.9XXA Other and unspecified overexertion or strenuous movements or postures, initial encounter; Y93.89 Activity, other specified
CPT/HCPCS: 73562; 99284; A9270-GY

== ENCOUNTER 2019-07-02 12:26 | Emergency (ER) | payer MEDICARE ==
--- NOTE | 2019-07-02 12:50 | ERPHSYRPT ---
- History of Present Illness Time Seen by Provider: 07/02/19 12:50 Source: patient Exam Limitations: no limitations Patient Subjective Stated Complaint: HTN Physician History: The patient is a 44-year-old male with a past medical history significant for hypertension, sleep apnea, gout, diabetes who presents with a chief complaint of hypertension. He also has secondary complaint of a headache in addition to gross hematuria. He states he has daily headaches but he attributes to his blood pressure being elevated and reportedly had a brief episode of gross hematuria last night. He reportedly was seen by his primary care provider week ago he wanted to hospitalize him to control his blood pressure however the patient refused. He is on numerous blood pressure medications that he reported he has not taken in the last 3-5 months he doesn't feel like he needs to and he refuses to take his medication according to his who is his bedside today. He denies shortness of breath, chest pain, abdominal pain, changes in his visual acuity, increased weight gain. He decided to come to the ED today because he became scared after noticing gross hematuria yesterday. His urine has since cleared. Timing/Duration: other (Months) Associated Symptoms: headaches, No nausea, No vomiting, No abdominal pain, No shortness of breath, No chest pain, No syncope Allergies/Adverse Reactions: No Known Drug Allergies Allergy (Verified 07/02/19 13:00) Home Medications: Armodafinil [Nuvigil] 250 mg PO DAILY 11/22/16 [History] Chlorthalidone 25 mg PO DAILY 11/22/16 [History] Minoxidil 10 mg PO DAILY 11/22/16 [History] Spironolactone [Aldactone] 50 mg PO BID 11/22/16 [History] Torsemide [Demadex] 40 mg PO BID 11/22/16 [History] Allopurinol [Zyloprim] 400 mg PO DAILY 04/03/18 [History] Carvedilol [Coreg] 37.5 mg PO BID 04/03/18 [History] Metformin HCl [Glucophage] 1,000 mg PO DAILY 04/03/18 [History] Nitroglycerin 0.4 mg (Ed) [Nitrostat 0.4 MG (ED)] 0.4 mg SL UD PRN [History] Bumetanide [Bumex] 2 mg PO BID 04/05/19 [History] Doxazosin Mesylate 4 mg PO DAILY 04/05/19 [History] Losartan Potassium 100 mg PO DAILY 04/05/19 [History] Probenecid 500 mg PO BID 04/05/19 [History] Hx Tetanus, Diphtheria Vaccination/Date Given: Yes Hx Influenza Vaccination/Date Given: No Hx Pneumococcal Vaccination/Date Given: No - Review of Systems Constitutional: No Fever, No Chills Eyes: No Eye Pain, No Eye Redness, No Vision Changes Ears, Nose, & Throat: No Symptoms Respiratory: No Cough, No Cyanosis, No Dyspnea, No Dyspnea on Exertion (SUT[place]) Cardiac: No Chest Pain, No Edema, No Orthopnea Abdominal/Gastrointestinal: No Symptoms, No Abdominal Pain, No Nausea, No Vomiting Genitourinary Symptoms: No Dysuria, No Frequency, No Hematuria Skin: No Symptoms Neurological: Headache, No Dizziness, No Focal Weakness Psychological: No Suicidal Ideations, No Homicidal Ideations All Other Systems: Reviewed and Negative - Past Medical History Pertinent Past Medical History: Yes Neurological History: No Pertinent History ENT History: No Pertinent History Cardiac History: Hypertension Respiratory History: Asthma, Bronchitis, COPD Endocrine Medical History: Diabetes Type II Musculoskeletal History: Arthritis GI Medical History: No Pertinent History History: Renal Disease Psycho-Social History: No Pertinent History Male Reproductive Disorders: No Pertinent History Other Medical History: Stage 4 kidney disease - Past Surgical History Past Surgical History: Yes Neuro Surgical History: No Pertinent History Cardiac: Cardiac Catheterization Respiratory: No Pertinent History Gastrointestinal: No Pertinent History Genitourinary: No Pertinent History Musculoskeletal: Other Male Surgical History: No Pertinent History Other Surgical History: recent removal of toe nail, knee scope. - Social History Smoking Status: Never smoker Exposure to second hand smoke: Yes Alcohol Use: None Drug Use: none Patient Lives Alone: No Significant Family History: heart disease, hypertension - Nursing Vital Signs Nursing Vital Signs: Initial Vital Signs Temperature 97.2 F 07/02/19 12:44 Pulse Rate 105 H 07/02/19 12:44 Respiratory Rate 18 07/02/19 12:44 Blood Pressure 216/119 07/02/19 12:44 O2 Sat by Pulse Oximetry 98 07/02/19 12:44 Pain Scale Pain Intensity 8 - Physical Exam General Appearance: no apparent distress, alert, obese Eye Exam: PERRL/EOMI, eyes nml inspection, No scleral icterus Ears, Nose, Throat Exam: normal ENT inspection, pharynx normal, No pharyngeal erythema, No tonsillar exudate Neck Exam: normal inspection Respiratory Exam: normal breath sounds, lungs clear, No chest tenderness, No respiratory distress Cardiovascular Exam: regular rate/rhythm, normal heart sounds, normal peripheral pulses, capillary refill <2 sec Gastrointestinal/Abdomen Exam: soft, distention, other (Abdominal exam limited due to body habitus), No tenderness, No pulsatile mass Back Exam: normal inspection Neurologic Exam: alert, oriented x 3, cooperative, forensic accountant II-XII nml as tested Skin Exam: normal color, warm, dry, No rash, No petechiae, No jaundice SpO2 Interpretation: normal O2 Delivery: Room Air - Course Nursing assessment & vital signs reviewed: Yes EKG Interpreted by Me: RATE (Rate 105 bpm and with sinus tachycardia present), NORMAL INTERVALS, NORMAL QRS, Non-specific ST Changes, Other (LVH and left ventricular strain pattern.) - CT Exams Head CT Interpretation: Negative Ordered Tests: Active Orders 24 hr Category Date Time Status EKG-ER Only STAT Care 07/02/19 12:58 Active HEAD WITHOUT CONTRAST [CT] Stat Exams 07/02/19 12:58 Completed BMP Stat Lab 07/02/19 13:35 Completed CBC W DIFF Stat Lab 07/02/19 13:35 Completed UA W/RFX UR CULTURE Stat Lab 07/02/19 12:58 Completed Medication Summary Discontinued Medications Generic Name Dose Route Start Last Admin Trade Name Uzma PRN Reason Stop Dose Admin Acetaminophen 1,000 mg 07/02/19 12:58 07/02/19 13:04 Tylenol Extra Strength 500 Mg PO 07/02/19 12:59 1,000 mg STAT STA Administration Acetaminophen Confirm 07/02/19 13:02 Tylenol Extra Strength 500 Mg Administered 07/02/19 13:03 Dose 1,000 mg .ROUTE .[employer]-Endorphin ONE Lab/Rad Data: Laboratory Result Diagrams 07/02/19 13:35 07/02/19 13:35 Laboratory Results 07/02/19 07/02/19 12 Range/Units 13:35 13:35 12:58 WBC 11.1 H (4.0-10.5) K/mm3 RBC 5.79 H (4.1-5.6) M/mm3 Hgb 15.5 (12.5-18.0) gm/dl Hct 47.0 (42-50) % MCV 81.2 (78-100) fl MCH 26.8 (26-32) pg MCHC 33.0 (32-36) g/dl RDW 15.3 H (11.5-14.0) % Plt Count 177 (150-450) K/mm3 MPV 10.6 H (6-9.5) fl Gran % 75.5 H (36.0-66.0) % Eos # (Auto) 0.25 (0-0.5) Absolute Lymphs (auto) 1.71 (1.0-4.6) Absolute Monos (auto) 0.72 (0.0-1.3) Lymphocytes % 15.4 L (24.0-44.0) % Monocytes % 6.5 (0.0-12.0) % Eosinophils % 2.2 (0.00-5.0) % Basophils % 0.4 (0.0-0.4) % Absolute Granulocytes 8.40 H (1.4-6.9) Basophils # 0.04 (0-0.4) Sodium 142 (137-145) mmol/L Potassium 3.6 (3.5-5.1) mmol/L Chloride 103 (98-107) mmol/L Carbon Dioxide 23 (22-30) mmol/L Anion Gap 18.6 H (5-15) MEQ/L BUN 23 H (9-20) mg/dL Creatinine 1.26 H (0.66-1.25) mg/dL Estimated GFR > 60.0 ML/MIN Glucose 143 H (74-106) mg/dL Calcium 8.7 (8.4-10.2) mg/dL Urine Color YELLOW (YELLOW) Urine Appearance CLEAR (CLEAR) Urine pH 6.0 (5-6) Ur Specific [place] 1.015 (1.005-1.025) Urine Protein >=500 (Negative) Urine Ketones NEGATIVE (NEGATIVE) Urine Blood NEGATIVE (0-5) Willy/ul Urine Nitrite NEGATIVE (NEGATIVE) Urine Bilirubin NEGATIVE (NEGATIVE) Urine Urobilinogen NEGATIVE (0-1) mg/dL Ur Leukocyte Esterase NEGATIVE (NEGATIVE) Urine WBC (Auto) NONE (0-5) /HPF Urine RBC (Auto) 0-2 (0-2) /HPF U Epithel Cells (Auto) NONE (FEW) /HPF Urine Bacteria (Auto) NONE (NEGATIVE) /HPF Urine Mucus (Auto) SLIGHT (NEGATIVE) /HPF Urine Culture Reflexed NO (NO) Urine Glucose 50 (NEGATIVE) mg/dL - Progress Progress: improved Progress Note: 07/02/19 14:29 The patient was reassessed to find that his blood pressure was starting to come down and his RIVER symptoms were improving. Blood pressure now 180'-190's systolic and diastolic is less than 110 mmHg. We talked about the importance of him taking his blood pressure medication as prescribed. He denies SI and HI as well. 07/02/19 18:33 Counseled pt/family regarding: lab results, diagnosis, need for follow-up, rad results - Departure Departure Disposition: Home Clinical Impression: Uncontrolled hypertension, Noncompliance with medication regimen Condition: Stable Critical Care Time: No Referrals: ATTILA RÍOS [Primary Care Provider] - Instructions: High Blood Pressure (DC) Additional Instructions: Please continue to take your medication as prescribed and call to schedule an appointment to be seen by your primary care provider within the next 1-2 weeks. Plan of Treatment: Nontoxic in appearance. No focal neuro deficits and HCT without evidence of CVA , specifically ICH. EKG showing evidence of LVH likely reflective chronic HTN. Patient's BP today likely his baseline and the patient brought his medications with him to the ED which were restarted after my exam. His remaining workup was relatively benign to include his UA. He had no pulmonary symptoms or complaint of CP, so CXR and cardiac workup was not pursued. He was counseled extensively on the importance of taking his medication as prescribed to avoid CVA, AMI, and renal failure. He was instructed to f/u with his PCP to have his blood pressure rechecked in a week. He agreed with and verbally agreed with the discharge plan.
[2019-07-02] MEDS ORDERED: TYLENOL EXTRA STRENGTH 500 MG PO STA (12:58)
[2019-07-02] MEDS ORDERED: TYLENOL EXTRA STRENGTH 500 MG ONE (13:02)
--- NOTE | 2019-07-02 13:28 | XRAY ---
Exam: CT of the head without IV contrast from 07/02/2019. CTDI: 56.80 Comparison: None. Indication: Evaluate for intracranial hemorrhage, stroke protocol. Technique: Non-IV contrast axial images were obtained through the brain. Reconstructed coronal and sagittal images were created and reviewed. Findings: The ventricles appear of normal size and configuration. No focal mass effect or midline shift is seen. No acute intracranial bleed or abnormal extra-axial fluid collection is seen. The stout matter-white matter junctions appear unremarkable. No low attenuation territorial infarct is seen. No low attenuation focal edema is seen. Structures of the posterior fossa appear unremarkable. The cortical sulci and basilar cisterns appear normal. The calvarium of the skull appears intact without evidence of fracture. The paranasal sinuses reveal some moderate mucoperiosteal thickening with perhaps a small amount of fluid within the posterior aspect of the right maxillary sinus. There is some deviation of the nasal septum toward the right. The remainder of the paranasal sinuses appears clear. Abundant soft tissue density is seen within both external auditory canals. Correlate clinically regarding cerumen or other debris/mass. The mastoid air cells are clear without effusion. Impression: 1. No acute intracranial bleed or other acute intracranial process is seen. 2. Posterior right maxillary sinus disease which could be acute or chronic. Correlate clinically. 3. Soft tissue density is seen within both external auditory canals. Correlate clinically regarding cerumen versus other debris/mass.
[2019-07-02 13:31] LABS: Appearance CLEAR (CLEAR); Bilirubin NEGATIVE (NEGATIVE); Blood NEGATIVE Ery/ul (0-5); Glucose 50 mg/dL (NEGATIVE); Ketones NEGATIVE (NEGATIVE); Leukocyte Esterase NEGATIVE (NEGATIVE); Mucus SLIGHT /HPF (NEGATIVE); Nitrite NEGATIVE (NEGATIVE); Protein,Urine Dip >=500 (Negative); RBC 0-2 /HPF (0-2); Specific Gravity 1.015 (1.005-1.025); Urobilinogen NEGATIVE mg/dL (0-1)
[2019-07-02 13:37] VITALS: BP 208/118; PULSE 97
[2019-07-02 13:49] LABS: BASOPHIL % 0.4 % (0.0-0.4); Basophil (Absolute #) 0.04 (0-0.4); Eosinophil % 2.2 % (0.00-5.0); Eosinophil (Absolute #) 0.25 (0-0.5); Hemoglobin 15.5 gm/dl (12.5-18.0); Lymphocyte (Absolute #) 1.71 (1.0-4.6); Lymphocytes % 15.4 % (24.0-44.0); Mean Cell Volume 81.2 fl (78-100); Mean Corpuscular Hemoglobin 26.8 pg (26-32); Mean Platelet Volume 10.6 fl (6-9.5); Monocyte (Absolute #) 0.72 (0.0-1.3); Monocytes % 6.5 % (0.0-12.0); Neutrophil % 75.5 % (36.0-66.0); Platelet Count 177 K/mm3 (150-450); Red Blood Count 5.79 M/mm3 (4.1-5.6); Red Cell Distribution Width 15.3 % (11.5-14.0); White Blood Count 11.1 K/mm3 (4.0-10.5)
[2019-07-02 13:52] VITALS: O2SAT 95
[2019-07-02 14:01] LABS: ANION GAP 18.6 MEQ/L (5-15); BLOOD UREA NITROGEN 23 mg/dL (9-20); CHLORIDE 103 mmol/L (98-107); Calcium 8.7 mg/dL (8.4-10.2); Carbon Dioxide 23 mmol/L (22-30); Creatinine 1 1.26 mg/dL (0.66-1.25); Glucose 143 mg/dL (74-106); Potassium 3.6 mmol/L (3.5-5.1); SODIUM 142 mmol/L (137-145)
== END 2019-07-02 15:18 | disposition home or self-care (01) ==
LOC: ED 12:26
DX: I10 Essential (primary) hypertension (principal); Z91.14 Patient's other noncompliance with medication regimen; G47.30 Sleep apnea, unspecified; E11.9 Type 2 diabetes mellitus without complications; R51 Headache; R31.0 Gross hematuria; Z79.899 Other long term (current) drug therapy
CPT/HCPCS: 36415; 70450; 80048; 81001; 85025; 93005; 99284; A9270-GY

== ENCOUNTER 2019-07-03 09:06 | Emergency (ER) | payer MEDICARE ==
--- NOTE | 2019-07-03 09:40 | ERPHSYRPT ---
- History of Present Illness Time Seen by Provider: 07/03/19 09:25 Source: patient, family Exam Limitations: no limitations Patient Subjective Stated Complaint: states was seen yesterday for high b/p. was given meds and took regular meds this am at home. is now having numbness in right hand and left leg. also having slight numbness in lips. h/a this am also Triage Nursing Assessment: ambulated to room per self with cane. skin w/d, color normal, resp nonlabored. 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 speech clear and is oriented to name, place and month and events. could not tell us the year. denies any difficulty with swallowing. Physician History: 44 y/o morbidly obese white male with h/o htn, presents with numbness of bilat hands, headache and perioral numbness. pt was seen in this ED yesterday for hematuria and headache. pts sbp was over 210. pt was discharged to home. pt was given meds to lower his elevated bp. pt took his usual bp meds last pm and this am. pt found to have hypotension this morning. pt denies cp, denies soa. he denies bleeding anywhere. pts pressure steamer tender is dr. turk Timing/Duration: today, constant, intermittent Severity: moderate Associated Symptoms: nausea, headaches, No abdominal pain, No shortness of breath, No diaphoresis, No chest pain, No syncope Allergies/Adverse Reactions: No Known Drug Allergies Allergy (Verified 07/03/19 09:14) Home Medications: Armodafinil [Nuvigil] 250 mg PO DAILY 11/22/16 [History] Chlorthalidone 25 mg PO DAILY 11/22/16 [History] Minoxidil 10 mg PO DAILY 11/22/16 [History] Spironolactone [Aldactone] 50 mg PO BID 11/22/16 [History] Torsemide [Demadex] 40 mg PO BID 11/22/16 [History] Allopurinol [Zyloprim] 400 mg PO DAILY 04/03/18 [History] Carvedilol [Coreg] 37.5 mg PO BID 04/03/18 [History] Metformin HCl [Glucophage] 1,000 mg PO DAILY 04/03/18 [History] Nitroglycerin 0.4 mg (Ed) [Nitrostat 0.4 MG (ED)] 0.4 mg SL UD PRN [History] Bumetanide [Bumex] 2 mg PO BID 04/05/19 [History] Doxazosin Mesylate 4 mg PO DAILY 04/05/19 [History] Losartan Potassium 100 mg PO DAILY 04/05/19 [History] Probenecid 500 mg PO BID 04/05/19 [History] Hx Tetanus, Diphtheria Vaccination/Date Given: Yes Hx Influenza Vaccination/Date Given: No Hx Pneumococcal Vaccination/Date Given: No - Review of Systems Constitutional: Weakness Eyes: No Symptoms Ears, Nose, & Throat: No Symptoms Respiratory: No Symptoms Cardiac: No Symptoms Abdominal/Gastrointestinal: Nausea, No Vomiting, No Diarrhea, No Constipation Genitourinary Symptoms: No Symptoms Musculoskeletal: No Symptoms Skin: No Symptoms Neurological: Headache, Parasthesia, No Focal Weakness Psychological: No Symptoms Endocrine: No Symptoms Hematologic/Lymphatic: No Symptoms Immunological/Allergic: No Symptoms All Other Systems: Reviewed and Negative - Past Medical History Pertinent Past Medical History: Yes Neurological History: No Pertinent History ENT History: No Pertinent History Cardiac History: Hypertension Respiratory History: Asthma, Bronchitis, COPD Endocrine Medical History: Diabetes Type II Musculoskeletal History: Arthritis GI Medical History: No Pertinent History History: Renal Disease Psycho-Social History: No Pertinent History Male Reproductive Disorders: No Pertinent History Other Medical History: Stage 4 kidney disease - Past Surgical History Past Surgical History: Yes Neuro Surgical History: No Pertinent History Cardiac: Cardiac Catheterization Respiratory: No Pertinent History Gastrointestinal: No Pertinent History Genitourinary: No Pertinent History Musculoskeletal: Other Male Surgical History: No Pertinent History Other Surgical History: recent removal of toe nail, knee scope. - Social History Smoking Status: Never smoker Exposure to second hand smoke: Yes Alcohol Use: None Drug Use: none Patient Lives Alone: No Significant Family History: heart disease, hypertension - Nursing Vital Signs Nursing Vital Signs: Initial Vital Signs Temperature 97.5 F 07/03/19 09:13 Pulse Rate 85 07/03/19 09:13 Respiratory Rate 16 07/03/19 09:13 Blood Pressure 93/48 07/03/19 09:13 O2 Sat by Pulse Oximetry 96 07/03/19 09:13 Pain Scale Pain Intensity 4 - Physical Exam General Appearance: mild distress, obese Eye Exam: PERRL/EOMI, eyes nml inspection Ears, Nose, Throat Exam: normal ENT inspection, moist mucous membranes Neck Exam: normal inspection, non-tender, supple, full range of motion Respiratory Exam: normal breath sounds, lungs clear, airway intact, No chest tenderness, No respiratory distress Cardiovascular Exam: regular rate/rhythm, normal heart sounds, normal peripheral pulses Gastrointestinal/Abdomen Exam: soft, No normal bowel sounds, No tenderness, No guarding, No rebound Rectal Exam: not done Back Exam: normal inspection, normal range of motion, vertebral tenderness, No CVA tenderness Extremity Exam: normal inspection, normal range of motion, pelvis stable, parasthesia (bilat hands) Neurologic Exam: alert, oriented x 3, cooperative, geotechnical department manager II-XII nml as tested, No disoriented, No confusion, No facial droop, No slurred speech, No aphasia Skin Exam: normal color, warm, dry Lymphatic Exam: adenopathy SpO2: 96 O2 Delivery: Room Air - Course Nursing assessment & vital signs reviewed: Yes EKG Interpreted by Me: RATE (84), Sinus Rhythm, NORMAL AXIS, NORMAL INTERVALS, 1st degree AV Block, NORMAL QRS, Other (comparison ekg 07/02/19 tachycardia now resolved. ) Ordered Tests: Active Orders 24 hr Category Date Time Status Junior Buyer STAT Care 07/03/19 09:44 Active EKG-ER Only STAT Care 07/03/19 09:43 Active IV Insertion STAT Care 07/03/19 09:43 Active Pulse Oximetry (ED) STAT Care 07/03/19 09:43 Active HEAD WITHOUT CONTRAST [CT] Stat Exams 07/03/19 09:45 Completed CBC W DIFF Stat Lab 07/03/19 10:08 Completed CMP Stat Lab 07/03/19 10:08 Completed TROPONIN Q3H Lab 07/03/19 10:08 Completed TROPONIN Q3H Lab 07/03/19 12:52 Completed TROPONIN Q3H Lab 07/03/19 15:45 Ordered TROPONIN Q3H Lab 07/03/19 18:45 Ordered TROPONIN Q3H Lab 07/03/19 21:45 Ordered Medication Summary Generic Name Dose Route Start Last Admin Trade Name Freq PRN Reason Stop Dose Admin Sodium Chloride 1,000 mls @ 500 mls/hr 07/03/19 11:45 07/03/19 11:43 Sodium Chloride 0.9% 1000 Ml IV 08/02/19 11:44 500 mls/hr .Q2H STEVAN Administration Sodium Chloride 1,000 mls @ 50 mls/hr 07/03/19 14:30 Sodium Chloride 0.9% 1000 Ml IV 08/02/19 14:29 .Q20H STEVNA Discontinued Medications Generic Name Dose Route Start Last Admin Trade Name Uzma PRN Reason Stop Dose Admin Sodium Chloride 1,000 mls @ 999 mls/hr 07/03/19 09:43 07/03/19 11:06 Sodium Chloride 0.9% 1000 Ml IV 07/03/19 10:43 Infused .Q1H1M STA Infusion Sodium Chloride Confirm 07/03/19 09:46 Sodium Chloride 0.9% 1000 Ml Administered 07/03/19 09:47 Dose 1,000 mls @ ud .ROUTE .STK-MED ONE Lab/Rad Data: Laboratory Result Diagrams 07/03/19 10:08 07/03/19 10:08 Laboratory Results 07/03/19 07/03/19 07/03/19 Range/Units 12:52 10:08 10:08 WBC (4.0-10.5) K/mm3 RBC (4.1-5.6) M/mm3 Hgb (12.5-18.0) gm/dl Hct (42-50) % MCV (78-100) fl MCH (26-32) pg MCHC (32-36) g/dl RDW (11.5-14.0) % Plt Count (150-450) K/mm3 MPV (6-9.5) fl Gran % (36.0-66.0) % Eos # (Auto) (0-0.5) Absolute Lymphs (auto) (1.0-4.6) Absolute Monos (auto) (0.0-1.3) Lymphocytes % (24.0-44.0) % Monocytes % (0.0-12.0) % Eosinophils % (0.00-5.0) % Basophils % (0.0-0.4) % Absolute Granulocytes (1.4-6.9) Basophils # (0-0.4) Sodium 140 (137-145) mmol/L Potassium 4.1 (3.5-5.1) mmol/L Chloride 100 (98-107) mmol/L Carbon Dioxide 33 H (22-30) mmol/L Anion Gap 11.3 (5-15) MEQ/L BUN 38 H (9-20) mg/dL Creatinine 2.37 H (0.66-1.25) mg/dL Estimated GFR 31.9 ML/MIN Glucose 146 H (74-106) mg/dL Calcium 9.8 (8.4-10.2) mg/dL Total Bilirubin 0.50 (0.2-1.3) mg/dL AST 21 (17-59) U/L ALT 27 (0-50) U/L Alkaline Phosphatase 78 (38-126) U/L Troponin I 0.057 H* 0.062 H* (0.000-0.034) ng/mL Serum Total Protein 7.0 (6.3-8.2) g/dL Albumin 3.5 (3.5-5.0) g/dL 07/03/19 Range/Units 10:08 WBC 12.7 H (4.0-10.5) K/mm3 RBC 5.34 (4.1-5.6) M/mm3 Hgb 14.5 (12.5-18.0) gm/dl Hct 43.9 (42-50) % MCV 82.2 (78-100) fl MCH 27.2 (26-32) pg MCHC 33.0 (32-36) g/dl RDW 15.5 H (11.5-14.0) % Plt Count 186 (150-450) K/mm3 MPV 10.4 H (6-9.5) fl Gran % 79.8 H (36.0-66.0) % Eos # (Auto) 0.15 (0-0.5) Absolute Lymphs (auto) 1.58 (1.0-4.6) Absolute Monos (auto) 0.81 (0.0-1.3) Lymphocytes % 12.4 L (24.0-44.0) % Monocytes % 6.4 (0.0-12.0) % Eosinophils % 1.2 (0.00-5.0) % Basophils % 0.2 (0.0-0.4) % Absolute Granulocytes 10.16 H (1.4-6.9) Basophils # 0.03 (0-0.4) Sodium (137-145) mmol/L Potassium (3.5-5.1) mmol/L Chloride (98-107) mmol/L Carbon Dioxide (22-30) mmol/L Anion Gap (5-15) MEQ/L BUN (9-20) mg/dL Creatinine (0.66-1.25) mg/dL Estimated GFR ML/MIN Glucose (74-106) mg/dL Calcium (8.4-10.2) mg/dL Total Bilirubin (0.2-1.3) mg/dL AST (17-59) U/L ALT (0-50) U/L Alkaline Phosphatase (38-126) U/L Troponin I (0.000-0.034) ng/mL Serum Total Protein (6.3-8.2) g/dL Albumin (3.5-5.0) g/dL - Progress Progress: improved, re-examined Progress Note: 07/03/19 14:27 ct head-no acute process. 07/03/19 14:[address] turk, pts pressure steamer tender. i reviewed pt hx, condition, labs, ekg and ct head results. he accepts pt in transfer. no recommendations at this time. Discussed with Dr.: Other (dr. turk pts pressure steamer tender) Counseled pt/family regarding: lab results, diagnosis, need for follow-up, rad results - Departure Departure Disposition: Transfer Clinical Impression: Hypotension, Paresthesia of both hands, Elevated troponin Condition: Fair Critical Care Time: Yes Critical Care Time(excluding separately billable procedures): Critical 30-74 mins Referrals: ATTILA RÍOS [Primary Care Provider] -
[2019-07-03] MEDS ORDERED: Sodium Chloride 0.9% 1000 ML 1,000 ML IV STA (09:43)
[2019-07-03] MEDS ORDERED: Sodium Chloride 0.9% 1000 ML 1,000 ML ONE ×2 (09:46→11:40)
[2019-07-03 10:13] LABS: Absolute Neutrophil Ct (ANC) 10.16 (1.4-6.9); BASOPHIL % 0.2 % (0.0-0.4); Basophil (Absolute #) 0.03 (0-0.4); Eosinophil % 1.2 % (0.00-5.0); Eosinophil (Absolute #) 0.15 (0-0.5); Hematocrit 43.9 % (42-50); Hemoglobin 14.5 gm/dl (12.5-18.0); Lymphocyte (Absolute #) 1.58 (1.0-4.6); Lymphocytes % 12.4 % (24.0-44.0); Mean Cell Volume 82.2 fl (78-100); Mean Corpuscular Hemoglobin 27.2 pg (26-32); Mean Platelet Volume 10.4 fl (6-9.5); Monocyte (Absolute #) 0.81 (0.0-1.3); Monocytes % 6.4 % (0.0-12.0); Neutrophil % 79.8 % (36.0-66.0); Platelet Count 186 K/mm3 (150-450); Red Blood Count 5.34 M/mm3 (4.1-5.6); Red Cell Distribution Width 15.5 % (11.5-14.0); White Blood Count 12.7 K/mm3 (4.0-10.5)
[2019-07-03 10:25] LABS: ALBUMIN 3.5 g/dL (3.5-5.0); ANION GAP 11.3 MEQ/L (5-15); BILIRUBIN,TOTAL 0.5 mg/dL (0.2-1.3); Calcium 9.8 mg/dL (8.4-10.2); Creatinine 1 2.37 mg/dL (0.66-1.25); Potassium 4.1 mmol/L (3.5-5.1)
--- NOTE | 2019-07-03 11:16 | XRAY ---
Indication: Low blood pressure. Perioral numbness and right-sided tingling/numbness. Multiple contiguous axial images obtained through the head without contrast. Comparison: One day earlier. Again normal appearing brain parenchyma, ventricles, and bony calvarium. Stable minimal right maxillary sinus mucosal thickening and cerumen/debris in both external auditory canals. Impression: Stable normal CT head without contrast exam. CT DI 55.08
[2019-07-03] MEDS ORDERED: Sodium Chloride 0.9% 1000 ML 1,000 ML IV SCH ×2 (11:45→14:30)
[2019-07-03 19:04] VITALS: BP 101/61; PULSE 92; O2SAT 96
== END 2019-07-03 19:56 | disposition short-term general hospital (02) ==
LOC: ED 09:06
DX: I95.9 Hypotension, unspecified (principal); R20.2 Paresthesia of skin; R74.8 Abnormal levels of other serum enzymes
CPT/HCPCS: 36000; 36415; 70450; 80053; 84484; 85025; 93005; 93041; 94760; 96360; 99285; 99291

== ENCOUNTER 2019-11-10 17:12 | Inpatient (IN) | payer MEDICARE ==
[2019-11-10 17:51] LABS: VBG BASE EXCESS 2.6 (-2.0-2.0); VBG CARBOXYHEMOGLOBIN 1.9 % T HGB (0.0-6.9); VBG HCO3- 29.7 meq/L (22-28); VBG HEMOGLOBIN 16.3; VBG O2 SATURATION 53.4 (95-100); VBG POTASSIUM 5.1 (3.5-5.1); VBG pH 7.34 (7.32-7.42)
[2019-11-10 18:00] LABS: Absolute Neutrophil Ct (ANC) 7.59 (1.4-6.9); BASOPHIL % 0.4 % (0.0-0.4); Basophil (Absolute #) 0.04 (0-0.4); Eosinophil % 3.4 % (0.00-5.0); Eosinophil (Absolute #) 0.36 (0-0.5); Hematocrit 46.7 % (42-50); Hemoglobin 16.1 gm/dl (12.5-18.0); Lymphocyte (Absolute #) 1.84 (1.0-4.6); Lymphocytes % 17.6 % (24.0-44.0); Mean Cell Volume 85.7 fl (78-100); Mean Corpuscular Hemoglobin 29.5 pg (26-32); Mean Corpuscular Hgb Concent. 34.5 g/dl (32-36); Mean Platelet Volume 11.3 fl (7.5-11.0); Monocyte (Absolute #) 0.61 (0.0-1.3); Monocytes % 5.8 % (0.0-12.0); Neutrophil % 72.8 % (36.0-66.0); Platelet Count 165 K/mm3 (150-450); Red Blood Count 5.45 M/mm3 (4.1-5.6); Red Cell Distribution Width 14.3 % (11.5-14.0); White Blood Count 10.4 K/mm3 (4.0-10.5)
[2019-11-10 18:05] LABS: ALBUMIN 4.4 g/dL (3.5-5.0); ANION GAP 18.7 MEQ/L (5-15); BILIRUBIN,TOTAL 0.5 mg/dL (0.2-1.3); Calcium 9.8 mg/dL (8.4-10.2); Creatinine 1 1.78 mg/dL (0.66-1.25); Potassium 4.9 mmol/L (3.5-5.1); Total Protein 8.4 g/dL (6.3-8.2)
--- NOTE | 2019-11-10 18:23 | ERPHSYRPT ---
- History of Present Illness Time Seen by Provider: 11/10/19 17:18 Source: patient, EMS Patient Subjective Stated Complaint: pt here for high blood sugar,cough and sob for a week now. he states he is more sob today. no fever Triage Nursing Assessment: pt arrived per ambulance, alert, resp easy, skin w/d/ p.has dry cough, has mask on, o2 at 2lnc Physician History: 44 years old male with a history of diabetes mellitus presented to ER via EMS with chief complaint of 1 week history of progressively worsening dry to minimal productive cough and shortness of breath along with some chills but no fever. Shortness of breath is more with activity and sometimes having at resting especially after episodes of coughing bouts. Denies any chest pain but has some tightness. Patient blood sugar on presentation is reading high. He is also having mild sore throat and nasal congestion. Denies any contact with COVID infection person. Timing/Duration: week(s) (1), intermittent, worse Cough Quality/Degree: moderate, dry cough Modifying Factors: Improves With: activity, coughing Associated Symptoms: cough, muscle aches Allergies/Adverse Reactions: No Known Drug Allergies Allergy (Verified 11/10/19 17:41) Home Medications: Armodafinil [Nuvigil] 250 mg PO DAILY 11/22/16 [History] Spironolactone [Aldactone] 50 mg PO BID 11/22/16 [History] Torsemide [Demadex] 40 mg PO BID 11/22/16 [History] Allopurinol [Zyloprim] 400 mg PO DAILY 04/03/18 [History] Carvedilol [Coreg] 37.5 mg PO BID 04/03/18 [History] Nitroglycerin 0.4 mg (Ed) [Nitrostat 0.4 MG (ED)] 0.4 mg SL UD PRN [History] Doxazosin Mesylate 4 mg PO DAILY 04/05/19 [History] Probenecid 500 mg PO BID 04/05/19 [History] Hx Tetanus, Diphtheria Vaccination/Date Given: No Hx Influenza Vaccination/Date Given: No Hx Pneumococcal Vaccination/Date Given: No Immunizations Up to Date: Yes Travel Risk - International Travel Have you traveled outside of the country in past 3 weeks: No Have you or anyone close to you been diagnosed with or: No Do your reside in a community with a known COVID-19 case?: Yes If Yes where:: [place] - Coronavirus Screening Has patient experienced Coronavirus symptoms: Yes Symptoms experienced: respiratory symptoms (i.e.Cought,shortness of breath) - Review of Systems Constitutional: Fatigue, Malaise, Weakness Eyes: No Symptoms Ears, Nose, & Throat: Nose Congestion Respiratory: Cough, Dyspnea Cardiac: No Symptoms Abdominal/Gastrointestinal: No Symptoms Genitourinary Symptoms: No Symptoms Musculoskeletal: Myalgias Neurological: No Symptoms Psychological: No Symptoms Endocrine: No Symptoms Hematologic/Lymphatic: No Symptoms Immunological/Allergic: No Symptoms - Past Medical History Pertinent Past Medical History: Yes Neurological History: No Pertinent History ENT History: No Pertinent History Cardiac History: Hypertension Respiratory History: Asthma, Bronchitis, COPD Endocrine Medical History: Diabetes Type II Musculoskeletal History: Arthritis GI Medical History: No Pertinent History History: Renal Disease Psycho-Social History: No Pertinent History Male Reproductive Disorders: No Pertinent History Other Medical History: Stage 4 kidney disease - Past Surgical History Past Surgical History: Yes Neuro Surgical History: No Pertinent History Cardiac: Cardiac Catheterization Respiratory: No Pertinent History Gastrointestinal: No Pertinent History Genitourinary: No Pertinent History Musculoskeletal: Other Male Surgical History: No Pertinent History Other Surgical History: recent removal of toe nail, knee scope. - Social History Smoking Status: Never smoker Exposure to second hand smoke: Yes Alcohol Use: None Drug Use: none Patient Lives Alone: No Significant Family History: heart disease, hypertension - Nursing Vital Signs Nursing Vital Signs: Initial Vital Signs Respiratory Rate 22 11/10/19 17:33 O2 Sat by Pulse Oximetry 98 11/10/19 17:33 Pain Scale Pain Intensity 0 - Physical Exam General Appearance: no apparent distress, alert Eye Exam: PERRL/EOMI, eyes nml inspection Ears, Nose, Throat Exam: pharyngeal erythema Neck Exam: normal inspection, non-tender, supple, full range of motion Respiratory Exam: normal breath sounds, diminished breath sounds, wheezing Cardiovascular Exam: regular rate/rhythm, normal heart sounds, normal peripheral pulses Gastrointestinal/Abdomen Exam: soft, normal bowel sounds Back Exam: normal inspection, normal range of motion Extremity Exam: normal inspection Neurologic Exam: alert, oriented x 3, cooperative Skin Exam: normal color SpO2 Interpretation: normal, O2 applied SpO2: 99 O2 Delivery: Nasal Cannula - Course Nursing assessment & vital signs reviewed: Yes EKG Interpreted by Me: RATE (91), NORMAL AXIS, Q-wave (Ear leads. Poor R wave progression) Ordered Tests: Active Orders 24 hr Category Date Time Status [employer] STAT Care 11/10/19 17:44 Active EKG-ER Only STAT Care 11/10/19 17:44 Active [facility] COVID Approval STAT Care 11/10/19 17:44 Completed IV Insertion STAT Care 11/10/19 17:44 Active Isolation, Initiate & Maintain Q4H Care 11/10/19 17:39 Active Isolation, Initiate & Maintain STAT Care 11/10/19 17:44 Active Pulse Oximetry (ED) ROUTINE Care 11/10/19 17:44 Active CHEST 1 VIEW (PORTABLE) Stat Exams 11/10/19 17:45 Taken BLOOD CULTURE Stat Lab 11/10/19 17:52 Received CBC W DIFF Stat Lab 11/10/19 17:54 Completed CMP Stat Lab 11/10/19 17:52 Completed LDH-LACTATE DEHYDROGENASE Stat Lab 11/10/19 17:52 Completed Lactic Acid Stat Lab 11/10/19 17:44 Completed TROPONIN Q3H Lab 11/10/19 17:52 Completed TROPONIN Q3H Lab 11/10/19 20:45 Ordered TROPONIN Q3H Lab 11/10/19 23:45 Ordered TROPONIN Q3H Lab 11/11/19 02:45 Ordered TROPONIN Q3H Lab 11/11/19 05:45 Ordered UA W/RFX UR CULTURE Stat Lab 11/10/19 18:28 Received VENOUS BLOOD GAS Stat Lab 11/10/19 17:44 Completed Medication Summary Generic Name Dose Route Start Last Admin Trade Name Freq PRN Reason Stop Dose Admin Sodium Chloride 1,000 mls @ 999 mls/hr 11/10/19 18:39 11/10/19 18:45 Sodium Chloride 0.9% 1000 Ml IV 11/10/19 19:39 999 mls/hr .Q1H1M STA Administration Ceftriaxone Sodium/Dextrose 1 g in 50 mls @ 100 mls/hr 11/10/19 18:59 Rocephin 1 Gm-D5w 50 Ml Bag IV 11/10/19 19:28 STAT STA Azithromycin 500 mg in 250 mls @ 250 mls/hr 11/10/19 18:59 Zithromax 500 Mg/ 250 Ml Nacl Premix IV 11/10/19 19:58 STAT STA Discontinued Medications Generic Name Dose Route Start Last Admin Trade Name Uzma PRN Reason Stop Dose Admin Sodium Chloride Confirm 11/10/19 18:43 Sodium Chloride 0.9% 1000 Ml Administered 11/10/19 18:44 Dose 1,000 mls @ .ROUTE [facility] Lab/Rad Data: Laboratory Result Diagrams 11/10/19 17:54 11/10/19 17:52 Laboratory Results 11/10/19 11/10/19 11/10/19 Range/Units 17:54 17:52 17:52 WBC 10.4 (4.0-10.5) K/mm3 RBC 5.45 (4.1-5.6) M/mm3 Hgb 16.1 (12.5-18.0) gm/dl Hct 46.7 (42-50) % MCV 85.7 (78-100) fl MCH 29.5 (26-32) pg MCHC 34.5 (32-36) g/dl RDW 14.3 H (11.5-14.0) % Plt Count 165 (150-450) K/mm3 MPV 11.3 H (7.5-11.0) fl Gran % 72.8 H (36.0-66.0) % Eos # (Auto) 0.36 (0-0.5) Absolute Lymphs (auto) 1.84 (1.0-4.6) Absolute Monos (auto) 0.61 (0.0-1.3) Lymphocytes % 17.6 L (24.0-44.0) % Monocytes % 5.8 (0.0-12.0) % Eosinophils % 3.4 (0.00-5.0) % Basophils % 0.4 (0.0-0.4) % Absolute Granulocytes 7.59 H (1.4-6.9) Basophils # 0.04 (0-0.4) pO2/FiO2 Ratio % VBG pH (7.32-7.42) VBG pCO2 at Pat Temp (42-55) mm/Hg VBG pO2 at Pat Temp (25-40) mm/Hg VBG HCO3 (22-28) meq/L VBG O2 Sat ([place]) (95-100) VBG Base Excess (-2.0-2.0) VBG Hemoglobin VBG Carboxyhemoglobin (0.0-6.9) % T HGB POC Potassium (3.5-5.1) Sodium 128 L (137-145) mmol/L Potassium 4.9 (3.5-5.1) mmol/L Chloride 89 L (98-107) mmol/L Carbon Dioxide 26 (22-30) mmol/L Anion Gap 18.7 H (5-15) MEQ/L BUN 58 H (9-20) mg/dL Creatinine 1.78 H (0.66-1.25) mg/dL Estimated GFR 44.4 ML/MIN Glucose 755 H* (74-106) mg/dL Lactic Acid (0.4-2.0) Calcium 9.8 (8.4-10.2) mg/dL Total Bilirubin 0.50 (0.2-1.3) mg/dL AST 26 (17-59) U/L ALT 29 (0-50) U/L Alkaline Phosphatase 257 H (38-126) U/L Lactate Dehydrogenase 184 (120-246) U/L Troponin I < 0.012 (0.000-0.034) ng/mL Serum Total Protein 8.4 H (6.3-8.2) g/dL Albumin 4.4 (3.5-5.0) g/dL 11/10/19 Range/Units 17:44 WBC (4.0-10.5) K/mm3 RBC (4.1-5.6) M/mm3 Hgb (12.5-18.0) gm/dl Hct (42-50) % MCV (78-100) fl MCH (26-32) pg MCHC (32-36) g/dl RDW (11.5-14.0) % Plt Count (150-450) K/mm3 MPV (7.5-11.0) fl Gran % (36.0-66.0) % Eos # (Auto) (0-0.5) Absolute Lymphs (auto) (1.0-4.6) Absolute Monos (auto) (0.0-1.3) Lymphocytes % (24.0-44.0) % Monocytes % (0.0-12.0) % Eosinophils % (0.00-5.0) % Basophils % (0.0-0.4) % Absolute Granulocytes (1.4-6.9) Basophils # (0-0.4) pO2/FiO2 Ratio 21.0 % VBG pH 7.34 (7.32-7.42) VBG pCO2 at Pat Temp 55 (42-55) mm/Hg VBG pO2 at Pat Temp 29 (25-40) mm/Hg VBG HCO3 29.7 H* (22-28) meq/L VBG O2 Sat ([place]) 53.4 L (95-100) VBG Base Excess 2.6 H (-2.0-2.0) VBG Hemoglobin 16.3 VBG Carboxyhemoglobin 1.9 (0.0-6.9) % T HGB POC Potassium 5.1 (3.5-5.1) Sodium (137-145) mmol/L Potassium (3.5-5.1) mmol/L Chloride (98-107) mmol/L Carbon Dioxide (22-30) mmol/L Anion Gap (5-15) MEQ/L BUN (9-20) mg/dL Creatinine (0.66-1.25) mg/dL Estimated GFR ML/MIN Glucose (74-106) mg/dL Lactic Acid 3.0 H (0.4-2.0) Calcium (8.4-10.2) mg/dL Total Bilirubin (0.2-1.3) mg/dL AST (17-59) U/L ALT (0-50) U/L Alkaline Phosphatase (38-126) U/L Lactate Dehydrogenase (120-246) U/L Troponin I (0.000-0.034) ng/mL Serum Total Protein (6.3-8.2) g/dL Albumin (3.5-5.0) g/dL - Progress Progress: re-examined Air Movement: fair Progress Note: 11/10/19 19:03 44 years old is evaluated for cough and dyspnea. Patient has elevated blood sugar in 700s with elevated gap but normal bicarb and pH. Patient is not in DKA. Is given IV fluid bolus and started on insulin drip. Chest x-ray did not show any focal consolidations. He is also being tested for COVID because of his symptoms. I would give him a dose of antibiotic as well. I have discussed with Dr. Marks and patient is being admitted. Blood Culture(s) Obtained: Yes Antibiotics given: Yes Discussed with : Christian Will see patient in: hospital (full admit) Counseled pt/family regarding: lab results, diagnosis, rad results - Departure Departure Disposition: In-patient Admission Clinical Impression: Hyperglycemia due to type 2 diabetes mellitus Qualifiers: Diabetes mellitus intermediate insulin use: without clerk to justice use Qualified Code(s ): E11.65 - Type 2 diabetes mellitus with hyperglycemia Condition: Stable Critical Care Time: Yes Critical Care Time(excluding separately billable procedures): Critical 30-74 mins Referrals: ATTILA RÍOS [Primary Care Provider] -
[2019-11-10 18:33] LABS: Appearance CLEAR (CLEAR); Bilirubin NEGATIVE (NEGATIVE); Blood NEGATIVE Ery/ul (0-5); Glucose >=500 mg/dL (NEGATIVE); Ketones NEGATIVE (NEGATIVE); Leukocyte Esterase NEGATIVE (NEGATIVE); Nitrite NEGATIVE (NEGATIVE); Protein,Urine Dip NEGATIVE (Negative); Specific Gravity 1.023 (1.005-1.025); Urobilinogen NEGATIVE mg/dL (0-1)
[2019-11-10] MEDS ORDERED: Sodium Chloride 0.9% 1000 ML 1,000 ML IV STA (18:39)
[2019-11-10] MEDS ORDERED: Sodium Chloride 0.9% 1000 ML 1,000 ML ONE (18:43)
[2019-11-10] MEDS ORDERED: Zithromax 500 MG/ 250 ML NaCl Premix 500 MG/250 ML IVPB IV STA (18:59)
[2019-11-10] MEDS ORDERED: ROCEPHIN 1 Gm-D5w 50 ml Bag** 1 G/50 ML IVPB IV STA (18:59)
[2019-11-10] MEDS ORDERED: Zithromax 500 MG/ 250 ML NaCl Premix 500 MG/250 ML IVPB IV ONE (19:09)
[2019-11-10] MEDS ORDERED: ROCEPHIN 1 Gm-D5w 50 ml Bag** 1 G/50 ML IVPB IV ONE (19:10)
[2019-11-10 19:26] LABS: RBC NONE SEEN /HPF (0-2); WBC NONE SEEN /HPF (0-5)
[2019-11-10 19:27] LABS: Bacteria NONE SEEN /HPF (NEGATIVE)
[2019-11-10] MEDS ORDERED: HUMULIN R 100 UNIT in Sodium Chloride 0.9% 100 ML IVPB 100 ML IV PRN (19:44)
--- NOTE | 2019-11-10 20:00 | XRAY ---
Indication: Cough. Comparison: June 19, 2018. Portable chest remains underinflated and clear. Heart is not enlarged. Bony thorax intact again with mild degenerative changes. No new/acute findings. Impression: Continued nonacute underinflated chest.
[2019-11-10] MEDS ORDERED: HUMULIN R ONE (20:07)
[2019-11-10] MEDS ORDERED: Sodium Chloride 0.9% 100 ML IVPB 100 ML IV ONE (20:08)
[2019-11-10] MEDS ORDERED: TYLENOL 325 MG PO PRN (20:48)
[2019-11-10 21:39] LABS: ALBUMIN 4.1 g/dL (3.5-5.0); ANION GAP 16.5 MEQ/L (5-15); BILIRUBIN,TOTAL 0.5 mg/dL (0.2-1.3); Calcium 9.6 mg/dL (8.4-10.2); Creatinine 1 1.71 mg/dL (0.66-1.25); Direct Bilirubin 0.2 mg/dL (0.0-0.4); MAGNESIUM 2.4 mg/dL (1.6-2.3); Potassium 4.7 mmol/L (3.5-5.1); Total Protein 8.1 g/dL (6.3-8.2)
[2019-11-10] MEDS: Sodium Chloride 0.9% 1000 ML 1,000 ML IV SCH (21:43)
[2019-11-10] MEDS ORDERED: VENTOLIN COMMON CANISTER IH PRN (21:52)
[2019-11-10] MEDS: Pepcid 20 MG VIAL IV SCH (23:18)
[2019-11-11 00:52] LABS: ALBUMIN 3.8 g/dL (3.5-5.0); ANION GAP 15.1 MEQ/L (5-15); BILIRUBIN,TOTAL 0.4 mg/dL (0.2-1.3); Calcium 9.3 mg/dL (8.4-10.2); Creatinine 1 1.48 mg/dL (0.66-1.25); Direct Bilirubin 0.2 mg/dL (0.0-0.4); Potassium 4.1 mmol/L (3.5-5.1); Total Protein 7.5 g/dL (6.3-8.2)
[2019-11-11] MEDS: HUMALOG SQ PRN ×10 (04:12→20:10)
[2019-11-11] MEDS ORDERED: D5W/0.45NS W/ 20mEq KCl 1000 ML 1,000 ML IV SCH (04:30)
[2019-11-11 04:39] LABS: ALBUMIN 3.9 g/dL (3.5-5.0); ANION GAP 12.8 MEQ/L (5-15); BILIRUBIN,TOTAL 0.4 mg/dL (0.2-1.3); Calcium 9.4 mg/dL (8.4-10.2); Creatinine 1 1.63 mg/dL (0.66-1.25); Direct Bilirubin 0.2 mg/dL (0.0-0.4); Potassium 4.3 mmol/L (3.5-5.1); Total Protein 7.6 g/dL (6.3-8.2)
[2019-11-11 04:40] LABS: Hematocrit 44.5 % (42-50); Hemoglobin 15.2 gm/dl (12.5-18.0); Mean Cell Volume 86.1 fl (78-100); Mean Corpuscular Hemoglobin 29.4 pg (26-32); Mean Corpuscular Hgb Concent. 34.2 g/dl (32-36); Mean Platelet Volume 10.9 fl (7.5-11.0); Platelet Count 160 K/mm3 (150-450); Red Blood Count 5.17 M/mm3 (4.1-5.6); Red Cell Distribution Width 14.4 % (11.5-14.0); White Blood Count 10.1 K/mm3 (4.0-10.5)
[2019-11-11] MEDS: Sodium Chloride 0.9% 1000 ML 1,000 ML IV SCH ×4 (04:47→21:57)
[2019-11-11] MEDS ORDERED: VENTOLIN COMMON CANISTER IH SCH (07:00)
[2019-11-11] MEDS: PATIENT OWN MEDICATION IH SCH ×3 (07:32→19:45)
--- NOTE | 2019-11-11 08:38 | PCM.HP ---
History of Present Illness - Chief Complaint Chief Complaint: sob/cough x 2 weeks, r/o covid, hyperglycemia History of Present Illness: is a 44 year old male who has had a dry/nonproductive cough for the last 2-3 weeks, he has had chills but no known fever. he was short of breath on presentation but is no longer feeling short of breath, he is on room air. he has known diabetes, states his metformin was stopped a few month ago and he is uncertain why. he reports his blood sugars are normally not high but his a1c >10 %. - Review of Systems Constitutional: Chills, No Fever Respiratory: Cough, Short Of Breath Cardiac: No Chest Pain, No Edema, No Syncope Abdominal/Gastrointestinal: No Abdominal Pain, No Nausea, No Vomiting, No Diarrhea Skin: No Rash Neurological: No Dizziness, No Focal Weakness, No Sensory Changes All Other Systems: Reviewed and Negative Medications & Allergies Home Medications: Home Medication List Aspirin 81 gm Chew [Baby Aspirin 81 mg Chew] 162 mg PO DAILY #60 tab.chew 11/17/12 [Rx Confirmed 11/10/19] Armodafinil [Nuvigil] 250 mg PO DAILY 11/22/16 [History Confirmed 11/10/19] Spironolactone [Aldactone] 50 mg PO BID 11/22/16 [History Confirmed 11/10/19] Torsemide [Demadex] 40 mg PO BID 11/22/16 [History Confirmed 11/10/19] Allopurinol [Zyloprim] 400 mg PO DAILY 04/03/18 [History Confirmed 11/10/19] Carvedilol [Coreg] 37.5 mg PO BID 04/03/18 [History Confirmed 11/10/19] Nitroglycerin 0.4 mg (Ed) [Nitrostat 0.4 MG (ED)] 0.4 mg SL UD PRN [History Confirmed 11/10/19] Doxazosin Mesylate 4 mg PO DAILY 04/05/19 [History Confirmed 11/10/19] Probenecid 500 mg PO BID 04/05/19 [History Confirmed 11/10/19] Allergies/Adverse Reactions: Allergies Allergy/AdvReac Type Severity Reaction Status Date / Time No Known Drug Allergies Allergy Verified 04/19/20 17:41 - Past Medical History Past Medical History: Yes Neurological History: No Pertinent History ENT History: No Pertinent History Cardiac History: Hypertension Respiratory History: Asthma, Bronchitis, COPD Endocrine Medical History: Diabetes Type II Musculoskelatal History: Arthritis GI Medical History: No Pertinent History History: Renal Disease Pyscho-Social History: No Pertinent History Male Reproductive Disorders: No Pertinent History Comment: Stage 4 kidney disease - Past Surgical History Past Surgical History: Yes Neuro Surgical History: No Pertinent History Cardiac History: Cardiac Catheterization Respiratory Surgery: No Pertinent History GI Surgical History: No Pertinent History Genitourinary Surgical Hx: No Pertinent History Musculskeletal Surgical Hx: Other Male Surgical History: No Pertinent History Other Surgical History: recent removal of toe nail, knee scope. - Social History Smoking Status: Never smoker Exposure to second hand smoke: No Alcohol: None Drug Use: none Significant Family History: heart disease, hypertension - Physical Exam Vital Signs: Vital Signs - 24 hr Temp Pulse Resp BP Pulse Ox 11/11/19 07:41 97.6 F 70 18 144/81 96 11/11/19 07:33 70 11/11/19 05:38 66 15 121/69 96 11/11/19 04:26 97.6 F 72 21 146/61 96 11/11/19 04:00 76 11/11/19 02:12 97.9 F 80 23 135/76 96 11/11/19 00:01 87 11/11/19 00:00 98.1 F 87 20 148/88 97 11/10/19 21:38 79 20 97 11/10/19 20:48 98.4 F 77 20 131/78 97 11/10/19 19:09 88 25 H 130/79 95 11/10/19 19:05 99 11/10/19 18:28 93 H 20 149/97 97 11/10/19 17:58 99 11/10/19 17:40 98.3 F 91 H 22 153/106 96 11/10/19 17:33 22 98 General Appearance: no apparent distress, obese Neurologic Exam: alert, oriented x 3, cooperative Respiratory Exam: normal breath sounds, lungs clear, No respiratory distress Cardiovascular Exam: regular rate/rhythm, normal heart sounds, normal peripheral pulses Gastrointestinal/Abdomen Exam: soft, normal bowel sounds, No tenderness, No mass Extremity Exam: normal inspection, normal range of motion, pelvis stable Results - Labs Lab/Micro Results: Accuchecks Date 11/11/19 Date 11/11/19 Date 11/11/19 Date 11/11/19 Date 11/11/19 Date 11/11/19 Date 11/11/19 Date 11/11/19 Date 11/10/19 Date 11/10/19 Time 07:16 Time 06:00 Time 05:00 Time 04:00 Time 03:00 Time 02:00 Time 01:00 Time 00:00 Time 22:00 Time 21:00 Accucheck Value: 345 Accucheck Value: 283 Accucheck Value: 320 Lab Results-Last 24 Hours 11/10/19 11/10/19 11/10/19 Range/Units 00:00 17:44 17:52 WBC (4.0-10.5) K/mm3 RBC (4.1-5.6) M/mm3 Hgb (12.5-18.0) gm/dl Hct (42-50) % MCV (78-100) fl MCH (26-32) pg MCHC (32-36) g/dl RDW (11.5-14.0) % Plt Count (150-450) K/mm3 MPV (7.5-11.0) fl Gran % (36.0-66.0) % Eos # (Auto) (0-0.5) Absolute Lymphs (auto) (1.0-4.6) Absolute Monos (auto) (0.0-1.3) Lymphocytes % (24.0-44.0) % Monocytes % (0.0-12.0) % Eosinophils % (0.00-5.0) % Basophils % (0.0-0.4) % Absolute Granulocytes (1.4-6.9) Basophils # (0-0.4) pO2/FiO2 Ratio 21.0 % VBG pH 7.34 (7.32-7.42) VBG pCO2 at Pat Temp 55 (42-55) mm/Hg VBG pO2 at Pat Temp 29 (25-40) mm/Hg VBG HCO3 29.7 H* (22-28) meq/L VBG O2 Sat ([place]) 53.4 L (95-100) VBG Base Excess 2.6 H (-2.0-2.0) VBG Hemoglobin 16.3 VBG Carboxyhemoglobin 1.9 (0.0-6.9) % T HGB POC Potassium 5.1 (3.5-5.1) Sodium 128 L (137-145) mmol/L Potassium 4.9 (3.5-5.1) mmol/L Chloride 89 L (98-107) mmol/L Carbon Dioxide 26 (22-30) mmol/L Anion Gap 18.7 H (5-15) MEQ/L BUN 58 H (9-20) mg/dL Creatinine 1.78 H (0.66-1.25) mg/dL Estimated GFR 44.4 ML/MIN Glucose 755 H* (74-106) mg/dL Hemoglobin A1c (4.5-6.0) % Lactic Acid 3.0 H (0.4-2.0) Calcium 9.8 (8.4-10.2) mg/dL Magnesium (1.6-2.3) mg/dL Total Bilirubin 0.50 (0.2-1.3) mg/dL Direct Bilirubin (0.0-0.4) mg/dL AST 26 (17-59) U/L ALT 29 (0-50) U/L Alkaline Phosphatase 257 H (38-126) U/L Lactate Dehydrogenase 184 (120-246) U/L Troponin I < 0.012 (0.000-0.034) ng/mL NT-Pro-B Natriuret Pep (0-450) pg/mL Serum Total Protein 8.4 H (6.3-8.2) g/dL Albumin 4.4 (3.5-5.0) g/dL Urine Color (YELLOW) Urine Appearance (CLEAR) Urine pH (5-6) Ur Specific [place] (1.005-1.025) Urine Protein (Negative) Urine Ketones (NEGATIVE) Urine Blood (0-5) Willy/ul Urine Nitrite (NEGATIVE) Urine Bilirubin (NEGATIVE) Urine Urobilinogen (0-1) mg/dL Ur Leukocyte Esterase (NEGATIVE) Urine WBC (Auto) (0-5) /HPF Urine RBC (Auto) (0-2) /HPF U Epithel Cells (Auto) (FEW) /HPF Urine Bacteria (Auto) (NEGATIVE) /HPF Urine Culture Reflexed (NO) Urine Glucose (NEGATIVE) mg/dL 04/19/20 04/19/20 04/19/20 Range/Units 17:52 17:54 18:28 WBC 10.4 (4.0-10.5) K/mm3 RBC 5.45 (4.1-5.6) M/mm3 Hgb 16.1 (12.5-18.0) gm/dl Hct 46.7 (42-50) % MCV 85.7 (78-100) fl MCH 29.5 (26-32) pg MCHC 34.5 (32-36) g/dl RDW 14.3 H (11.5-14.0) % Plt Count 165 (150-450) K/mm3 MPV 11.3 H (7.5-11.0) fl Gran % 72.8 H (36.0-66.0) % Eos # (Auto) 0.36 (0-0.5) Absolute Lymphs (auto) 1.84 (1.0-4.6) Absolute Monos (auto) 0.61 (0.0-1.3) Lymphocytes % 17.6 L (24.0-44.0) % Monocytes % 5.8 (0.0-12.0) % Eosinophils % 3.4 (0.00-5.0) % Basophils % 0.4 (0.0-0.4) % Absolute Granulocytes 7.59 H (1.4-6.9) Basophils # 0.04 (0-0.4) pO2/FiO2 Ratio % VBG pH (7.32-7.42) VBG pCO2 at Pat Temp (42-55) mm/Hg VBG pO2 at Pat Temp (25-40) mm/Hg VBG HCO3 (22-28) meq/L VBG O2 Sat ([place]) (95-100) VBG Base Excess (-2.0-2.0) VBG Hemoglobin VBG Carboxyhemoglobin (0.0-6.9) % T HGB POC Potassium (3.5-5.1) Sodium (137-145) mmol/L Potassium (3.5-5.1) mmol/L Chloride (98-107) mmol/L Carbon Dioxide (22-30) mmol/L Anion Gap (5-15) MEQ/L BUN (9-20) mg/dL Creatinine (0.66-1.25) mg/dL Estimated GFR ML/MIN Glucose (74-106) mg/dL Hemoglobin A1c (4.5-6.0) % Lactic Acid (0.4-2.0) Calcium (8.4-10.2) mg/dL Magnesium (1.6-2.3) mg/dL Total Bilirubin (0.2-1.3) mg/dL Direct Bilirubin (0.0-0.4) mg/dL AST (17-59) U/L ALT (0-50) U/L Alkaline Phosphatase (38-126) U/L Lactate Dehydrogenase (120-246) U/L Troponin I < 0.012 (0.000-0.034) ng/mL NT-Pro-B Natriuret Pep (0-450) pg/mL Serum Total Protein (6.3-8.2) g/dL Albumin (3.5-5.0) g/dL Urine Color STRAW (YELLOW) Urine Appearance CLEAR (CLEAR) Urine pH 6.0 (5-6) Ur Specific [place] 1.023 (1.005-1.025) Urine Protein NEGATIVE (Negative) Urine Ketones NEGATIVE (NEGATIVE) Urine Blood NEGATIVE (0-5) Willy/ul Urine Nitrite NEGATIVE (NEGATIVE) Urine Bilirubin NEGATIVE (NEGATIVE) Urine Urobilinogen NEGATIVE (0-1) mg/dL Ur Leukocyte Esterase NEGATIVE (NEGATIVE) Urine WBC (Auto) NONE SEEN (0-5) /HPF Urine RBC (Auto) NONE SEEN (0-2) /HPF U Epithel Cells (Auto) NONE (FEW) /HPF Urine Bacteria (Auto) NONE SEEN (NEGATIVE) /HPF Urine Culture Reflexed NO (NO) Urine Glucose >=500 (NEGATIVE) mg/dL 11/10/19 11/10/19 11/10/19 Range/Units 21:00 21:04 21:10 WBC (4.0-10.5) K/mm3 RBC (4.1-5.6) M/mm3 Hgb (12.5-18.0) gm/dl Hct (42-50) % MCV (78-100) fl MCH (26-32) pg MCHC (32-36) g/dl RDW (11.5-14.0) % Plt Count (150-450) K/mm3 MPV (7.5-11.0) fl Gran % (36.0-66.0) % Eos # (Auto) (0-0.5) Absolute Lymphs (auto) (1.0-4.6) Absolute Monos (auto) (0.0-1.3) Lymphocytes % (24.0-44.0) % Monocytes % (0.0-12.0) % Eosinophils % (0.00-5.0) % Basophils % (0.0-0.4) % Absolute Granulocytes (1.4-6.9) Basophils # (0-0.4) pO2/FiO2 Ratio % VBG pH (7.32-7.42) VBG pCO2 at Pat Temp (42-55) mm/Hg VBG pO2 at Pat Temp (25-40) mm/Hg VBG HCO3 (22-28) meq/L VBG O2 Sat ([place]) (95-100) VBG Base Excess (-2.0-2.0) VBG Hemoglobin VBG Carboxyhemoglobin (0.0-6.9) % T HGB POC Potassium (3.5-5.1) Sodium 132 L (137-145) mmol/L Potassium 4.7 (3.5-5.1) mmol/L Chloride 95 L (98-107) mmol/L Carbon Dioxide 26 (22-30) mmol/L Anion Gap 16.5 H (5-15) MEQ/L BUN 54 H (9-20) mg/dL Creatinine 1.71 H (0.66-1.25) mg/dL Estimated GFR 46.5 ML/MIN Glucose 616 H* (74-106) mg/dL Hemoglobin A1c (4.5-6.0) % Lactic Acid 2.8 H (0.4-2.0) Calcium 9.6 (8.4-10.2) mg/dL Magnesium 2.4 H (1.6-2.3) mg/dL Total Bilirubin 0.50 (0.2-1.3) mg/dL Direct Bilirubin 0.2 (0.0-0.4) mg/dL AST 23 (17-59) U/L ALT 28 (0-50) U/L Alkaline Phosphatase 212 H (38-126) U/L Lactate Dehydrogenase (120-246) U/L Troponin I < 0.012 (0.000-0.034) ng/mL NT-Pro-B Natriuret Pep 47.0 (0-450) pg/mL Serum Total Protein 8.1 (6.3-8.2) g/dL Albumin 4.1 (3.5-5.0) g/dL Urine Color (YELLOW) Urine Appearance (CLEAR) Urine pH (5-6) Ur Specific [place] (1.005-1.025) Urine Protein (Negative) Urine Ketones (NEGATIVE) Urine Blood (0-5) Willy/ul Urine Nitrite (NEGATIVE) Urine Bilirubin (NEGATIVE) Urine Urobilinogen (0-1) mg/dL Ur Leukocyte Esterase (NEGATIVE) Urine WBC (Auto) (0-5) /HPF Urine RBC (Auto) (0-2) /HPF U Epithel Cells (Auto) (FEW) /HPF Urine Bacteria (Auto) (NEGATIVE) /HPF Urine Culture Reflexed (NO) Urine Glucose (NEGATIVE) mg/dL 11/10/19 11/10/19 11/11/19 Range/Units 22:13 23:20 00:29 WBC (4.0-10.5) K/mm3 RBC (4.1-5.6) M/mm3 Hgb (12.5-18.0) gm/dl Hct (42-50) % MCV (78-100) fl MCH (26-32) pg MCHC (32-36) g/dl RDW (11.5-14.0) % Plt Count (150-450) K/mm3 MPV (7.5-11.0) fl Gran % (36.0-66.0) % Eos # (Auto) (0-0.5) Absolute Lymphs (auto) (1.0-4.6) Absolute Monos (auto) (0.0-1.3) Lymphocytes % (24.0-44.0) % Monocytes % (0.0-12.0) % Eosinophils % (0.00-5.0) % Basophils % (0.0-0.4) % Absolute Granulocytes (1.4-6.9) Basophils # (0-0.4) pO2/FiO2 Ratio % VBG pH (7.32-7.42) VBG pCO2 at Pat Temp (42-55) mm/Hg VBG pO2 at Pat Temp (25-40) mm/Hg VBG HCO3 (22-28) meq/L VBG O2 Sat ([place]) (95-100) VBG Base Excess (-2.0-2.0) VBG Hemoglobin VBG Carboxyhemoglobin (0.0-6.9) % T HGB POC Potassium (3.5-5.1) Sodium 136 L (137-145) mmol/L Potassium 4.1 (3.5-5.1) mmol/L Chloride 102 (98-107) mmol/L Carbon Dioxide 23 (22-30) mmol/L Anion Gap 15.1 H (5-15) MEQ/L BUN 50 H (9-20) mg/dL Creatinine 1.48 H (0.66-1.25) mg/dL Estimated GFR 54.9 ML/MIN Glucose 496 H 437 H 354 H (74-106) mg/dL Hemoglobin A1c (4.5-6.0) % Lactic Acid (0.4-2.0) Calcium 9.3 (8.4-10.2) mg/dL Magnesium (1.6-2.3) mg/dL Total Bilirubin 0.40 (0.2-1.3) mg/dL Direct Bilirubin 0.2 (0.0-0.4) mg/dL AST 21 (17-59) U/L ALT 26 (0-50) U/L Alkaline Phosphatase 145 H (38-126) U/L Lactate Dehydrogenase (120-246) U/L Troponin I (0.000-0.034) ng/mL NT-Pro-B Natriuret Pep (0-450) pg/mL Serum Total Protein 7.5 (6.3-8.2) g/dL Albumin 3.8 (3.5-5.0) g/dL Urine Color (YELLOW) Urine Appearance (CLEAR) Urine pH (5-6) Ur Specific [place] (1.005-1.025) Urine Protein (Negative) Urine Ketones (NEGATIVE) Urine Blood (0-5) Willy/ul Urine Nitrite (NEGATIVE) Urine Bilirubin (NEGATIVE) Urine Urobilinogen (0-1) mg/dL Ur Leukocyte Esterase (NEGATIVE) Urine WBC (Auto) (0-5) /HPF Urine RBC (Auto) (0-2) /HPF U Epithel Cells (Auto) (FEW) /HPF Urine Bacteria (Auto) (NEGATIVE) /HPF Urine Culture Reflexed (NO) Urine Glucose (NEGATIVE) mg/dL 04/11/11/19 11/11/19 Range/Units 01:15 02:14 03:27 WBC (4.0-10.5) K/mm3 RBC (4.1-5.6) M/mm3 Hgb (12.5-18.0) gm/dl Hct (42-50) % MCV (78-100) fl MCH (26-32) pg MCHC (32-36) g/dl RDW (11.5-14.0) % Plt Count (150-450) K/mm3 MPV (7.5-11.0) fl Gran % (36.0-66.0) % Eos # (Auto) (0-0.5) Absolute Lymphs (auto) (1.0-4.6) Absolute Monos (auto) (0.0-1.3) Lymphocytes % (24.0-44.0) % Monocytes % (0.0-12.0) % Eosinophils % (0.00-5.0) % Basophils % (0.0-0.4) % Absolute Granulocytes (1.4-6.9) Basophils # (0-0.4) pO2/FiO2 Ratio % VBG pH (7.32-7.42) VBG pCO2 at Pat Temp (42-55) mm/Hg VBG pO2 at Pat Temp (25-40) mm/Hg VBG HCO3 (22-28) meq/L VBG O2 Sat ([place]) (95-100) VBG Base Excess (-2.0-2.0) VBG Hemoglobin VBG Carboxyhemoglobin (0.0-6.9) % T HGB POC Potassium (3.5-5.1) Sodium (137-145) mmol/L Potassium (3.5-5.1) mmol/L Chloride (98-107) mmol/L Carbon Dioxide (22-30) mmol/L Anion Gap (5-15) MEQ/L BUN (9-20) mg/dL Creatinine (0.66-1.25) mg/dL Estimated GFR ML/MIN Glucose 323 H 240 H (74-106) mg/dL Hemoglobin A1c (4.5-6.0) % Lactic Acid (0.4-2.0) Calcium (8.4-10.2) mg/dL Magnesium (1.6-2.3) mg/dL Total Bilirubin (0.2-1.3) mg/dL Direct Bilirubin (0.0-0.4) mg/dL AST (17-59) U/L ALT (0-50) U/L Alkaline Phosphatase (38-126) U/L Lactate Dehydrogenase (120-246) U/L Troponin I < 0.012 (0.000-0.034) ng/mL NT-Pro-B Natriuret Pep (0-450) pg/mL Serum Total Protein (6.3-8.2) g/dL Albumin (3.5-5.0) g/dL Urine Color (YELLOW) Urine Appearance (CLEAR) Urine pH (5-6) Ur Specific [place] (1.005-1.025) Urine Protein (Negative) Urine Ketones (NEGATIVE) Urine Blood (0-5) Willy/ul Urine Nitrite (NEGATIVE) Urine Bilirubin (NEGATIVE) Urine Urobilinogen (0-1) mg/dL Ur Leukocyte Esterase (NEGATIVE) Urine WBC (Auto) (0-5) /HPF Urine RBC (Auto) (0-2) /HPF U Epithel Cells (Auto) (FEW) /HPF Urine Bacteria (Auto) (NEGATIVE) /HPF Urine Culture Reflexed (NO) Urine Glucose (NEGATIVE) mg/dL 11/11/19 11/11/19 11/11/19 Range/Units 03:27 04:24 04:24 WBC 10.1 (4.0-10.5) K/mm3 RBC 5.17 (4.1-5.6) M/mm3 Hgb 15.2 (12.5-18.0) gm/dl Hct 44.5 (42-50) % MCV 86.1 (78-100) fl MCH 29.4 (26-32) pg MCHC 34.2 (32-36) g/dl RDW 14.4 H (11.5-14.0) % Plt Count 160 (150-450) K/mm3 MPV 10.9 (7.5-11.0) fl Gran % (36.0-66.0) % Eos # (Auto) (0-0.5) Absolute Lymphs (auto) (1.0-4.6) Absolute Monos (auto) (0.0-1.3) Lymphocytes % (24.0-44.0) % Monocytes % (0.0-12.0) % Eosinophils % (0.00-5.0) % Basophils % (0.0-0.4) % Absolute Granulocytes (1.4-6.9) Basophils # (0-0.4) pO2/FiO2 Ratio % VBG pH (7.32-7.42) VBG pCO2 at Pat Temp (42-55) mm/Hg VBG pO2 at Pat Temp (25-40) mm/Hg VBG HCO3 (22-28) meq/L VBG O2 Sat ([place]) (95-100) VBG Base Excess (-2.0-2.0) VBG Hemoglobin VBG Carboxyhemoglobin (0.0-6.9) % T HGB POC Potassium (3.5-5.1) Sodium 138 (137-145) mmol/L Potassium 4.3 (3.5-5.1) mmol/L Chloride 101 (98-107) mmol/L Carbon Dioxide 29 (22-30) mmol/L Anion Gap 12.8 (5-15) MEQ/L BUN 47 H (9-20) mg/dL Creatinine 1.63 H (0.66-1.25) mg/dL Estimated GFR 49.1 ML/MIN Glucose 187 H 227 H (74-106) mg/dL Hemoglobin A1c (4.5-6.0) % Lactic Acid (0.4-2.0) Calcium 9.4 (8.4-10.2) mg/dL Magnesium (1.6-2.3) mg/dL Total Bilirubin 0.40 (0.2-1.3) mg/dL Direct Bilirubin 0.2 (0.0-0.4) mg/dL AST 21 (17-59) U/L ALT 25 (0-50) U/L Alkaline Phosphatase 143 H (38-126) U/L Lactate Dehydrogenase (120-246) U/L Troponin I (0.000-0.034) ng/mL NT-Pro-B Natriuret Pep (0-450) pg/mL Serum Total Protein 7.6 (6.3-8.2) g/dL Albumin 3.9 (3.5-5.0) g/dL Urine Color (YELLOW) Urine Appearance (CLEAR) Urine pH (5-6) Ur Specific [place] (1.005-1.025) Urine Protein (Negative) Urine Ketones (NEGATIVE) Urine Blood (0-5) Willy/ul Urine Nitrite (NEGATIVE) Urine Bilirubin (NEGATIVE) Urine Urobilinogen (0-1) mg/dL Ur Leukocyte Esterase (NEGATIVE) Urine WBC (Auto) (0-5) /HPF Urine RBC (Auto) (0-2) /HPF U Epithel Cells (Auto) (FEW) /HPF Urine Bacteria (Auto) (NEGATIVE) /HPF Urine Culture Reflexed (NO) Urine Glucose (NEGATIVE) mg/dL 11/11/19 Range/Units 04:24 WBC (4.0-10.5) K/mm3 RBC (4.1-5.6) M/mm3 Hgb (12.5-18.0) gm/dl Hct (42-50) % MCV (78-100) fl MCH (26-32) pg MCHC (32-36) g/dl RDW (11.5-14.0) % Plt Count (150-450) K/mm3 MPV (7.5-11.0) fl Gran % (36.0-66.0) % Eos # (Auto) (0-0.5) Absolute Lymphs (auto) (1.0-4.6) Absolute Monos (auto) (0.0-1.3) Lymphocytes % (24.0-44.0) % Monocytes % (0.0-12.0) % Eosinophils % (0.00-5.0) % Basophils % (0.0-0.4) % Absolute Granulocytes (1.4-6.9) Basophils # (0-0.4) pO2/FiO2 Ratio % VBG pH (7.32-7.42) VBG pCO2 at Pat Temp (42-55) mm/Hg VBG pO2 at Pat Temp (25-40) mm/Hg VBG HCO3 (22-28) meq/L VBG O2 Sat ([place]) (95-100) VBG Base Excess (-2.0-2.0) VBG Hemoglobin VBG Carboxyhemoglobin (0.0-6.9) % T HGB POC Potassium (3.5-5.1) Sodium (137-145) mmol/L Potassium (3.5-5.1) mmol/L Chloride (98-107) mmol/L Carbon Dioxide (22-30) mmol/L Anion Gap (5-15) MEQ/L BUN (9-20) mg/dL Creatinine (0.66-1.25) mg/dL Estimated GFR ML/MIN Glucose (74-106) mg/dL Hemoglobin A1c 10.02 H (4.5-6.0) % Lactic Acid (0.4-2.0) Calcium (8.4-10.2) mg/dL Magnesium (1.6-2.3) mg/dL Total Bilirubin (0.2-1.3) mg/dL Direct Bilirubin (0.0-0.4) mg/dL AST (17-59) U/L ALT (0-50) U/L Alkaline Phosphatase (38-126) U/L Lactate Dehydrogenase (120-246) U/L Troponin I (0.000-0.034) ng/mL NT-Pro-B Natriuret Pep (0-450) pg/mL Serum Total Protein (6.3-8.2) g/dL Albumin (3.5-5.0) g/dL Urine Color (YELLOW) Urine Appearance (CLEAR) Urine pH (5-6) Ur Specific [place] (1.005-1.025) Urine Protein (Negative) Urine Ketones (NEGATIVE) Urine Blood (0-5) Willy/ul Urine Nitrite (NEGATIVE) Urine Bilirubin (NEGATIVE) Urine Urobilinogen (0-1) mg/dL Ur Leukocyte Esterase (NEGATIVE) Urine WBC (Auto) (0-5) /HPF Urine RBC (Auto) (0-2) /HPF U Epithel Cells (Auto) (FEW) /HPF Urine Bacteria (Auto) (NEGATIVE) /HPF Urine Culture Reflexed (NO) Urine Glucose (NEGATIVE) mg/dL Accuchecks Date 11/11/19 Date 11/11/19 Date 11/11/19 Date 11/11/19 Date 11/11/19 Date 11/11/19 Date 11/11/19 Date 11/11/19 Date 11/10/19 Date 11/10/19 Time 07:16 Time 06:00 Time 05:00 Time 04:00 Time 03:00 Time 02:00 Time 01:00 Time 00:00 Time 22:00 Time 21:00 Accucheck Value: 345 Accucheck Value: 283 Accucheck Value: 320 - Radiology Impressions Radiology Exams & Impressions: Radiology Procedures Category Date Time Status CHEST 1 VIEW (PORTABLE) Stat Exams 11/10/19 17:45 Completed - Other Procedures and Tests Respiratory Therapy 11/10/19 21:38 Respiratory MDI Respiratory Therapy Assessment DAILY 11/10/19 21:45 BiPap/CPAP ROUTINE Assessment/Plan (1) Upper respiratory infection Current Visit: Yes Status: Acute Assessment & Plan: awaiting covid-19 swab, currently on rocephin/zithromax. bun/cr are elevated, hydrating and watching resp status closely. Code(s): J06.9 - ACUTE UPPER RESPIRATORY INFECTION, UNSPECIFIED (2) Hyperglycemia due to type 2 diabetes mellitus Current Visit: Yes Status: Acute Qualifiers: Diabetes mellitus terminal operations manager insulin use: without terminal operations manager use Qualified Code(s): E11.65 - Type 2 diabetes mellitus with hyperglycemia Assessment & Plan: add lantus, sliding scale insulin. overall he is feeling much better, much of his complaints were likely related to hyperglycemia Code(s): E11.65 - TYPE 2 DIABETES MELLITUS WITH HYPERGLYCEMIA (3) Acute renal insufficiency Current Visit: Yes Status: Acute Assessment & Plan: hydrating, will monitor Code(s): N28.9 - DISORDER OF KIDNEY AND URETER, UNSPECIFIED
[2019-11-11] MEDS: ROCEPHIN 1 Gm-D5w 50 ml Bag** 1 G/50 ML IVPB IV SCH (08:56)
[2019-11-11] MEDS: ENOXAPARIN SODIUM SQ SCH (08:56)
[2019-11-11] MEDS: Lantus Insulin SQ SCH (08:57)
[2019-11-11] MEDS: Pepcid 20 MG VIAL IV SCH ×2 (08:57→21:57)
[2019-11-11 09:06] LABS: ALBUMIN 3.8 g/dL (3.5-5.0); BILIRUBIN,TOTAL 0.4 mg/dL (0.2-1.3); Calcium 9.3 mg/dL (8.4-10.2); Creatinine 1 1.44 mg/dL (0.66-1.25); Direct Bilirubin 0.2 mg/dL (0.0-0.4); Potassium 4.2 mmol/L (3.5-5.1); Total Protein 7.4 g/dL (6.3-8.2)
[2019-11-11 10:21] LABS: ANION GAP 13.2 MEQ/L (5-15)
[2019-11-11] MEDS ORDERED: Nitrostat 0.4 MG (ED) SL PRN (12:25)
[2019-11-11] MEDS ORDERED: Nitrostat 0.4 MG Tablet SL PRN (12:27)
[2019-11-11] MEDS: ZYLOPRIM 100 MG PO SCH (12:44)
[2019-11-11] MEDS: CARDURA 2 MG PO SCH (12:45)
[2019-11-11] MEDS: Aldactone 25 MG PO SCH ×2 (12:45→16:58)
[2019-11-11] MEDS: COREG 12.5 MG PO SCH ×2 (12:45→21:56)
[2019-11-11] MEDS ORDERED: MEDICATION INTERVENTION MC SCH (13:00)
[2019-11-11] MEDS ORDERED: Lantus Insulin SQ ONE (16:15)
[2019-11-11] MEDS: Zithromax 500 MG/ 250 ML NaCl Premix 500 MG/250 ML IVPB IV SCH (21:58)
[2019-11-11] MEDS ORDERED: CARVEDILOL 37.5 MG PO SCH (22:00)
[2019-11-11] MEDS ORDERED: NON-FORMULARY ITEM (Spironolactone [Aldactone] 50 MG) PO SCH (22:00)
[2019-11-12] MEDS: HUMALOG SQ PRN ×6 (00:07→21:12)
[2019-11-12 05:22] LABS: Hematocrit 42.3 % (42-50); Mean Cell Volume 88.7 fl (78-100); Mean Corpuscular Hemoglobin 29.4 pg (26-32); Mean Corpuscular Hgb Concent. 33.1 g/dl (32-36); Mean Platelet Volume 10.4 fl (7.5-11.0); Platelet Count 147 K/mm3 (150-450); Red Blood Count 4.77 M/mm3 (4.1-5.6); Red Cell Distribution Width 14.6 % (11.5-14.0); White Blood Count 9.9 K/mm3 (4.0-10.5)
[2019-11-12 05:33] LABS: ALBUMIN 3.4 g/dL (3.5-5.0); ANION GAP 10.3 MEQ/L (5-15); BILIRUBIN,TOTAL 0.4 mg/dL (0.2-1.3); Creatinine 1 1.46 mg/dL (0.66-1.25); Potassium 4.5 mmol/L (3.5-5.1); Total Protein 6.9 g/dL (6.3-8.2)
[2019-11-12 07:09] LABS: Eosinophil 4 % (0.00-3.0); Lymphocytes 15 % (24-44); Monocyte 4 % (0.0-12.0); Neutrophils 77 % (36.-66.); Total Cells Counted 100
[2019-11-12 07:10] LABS: Platelet Estimate DECREASED (NORMAL)
[2019-11-12] MEDS: PATIENT OWN MEDICATION IH SCH ×2 (07:34→20:00)
[2019-11-12] MEDS: Sodium Chloride 0.9% 1000 ML 1,000 ML IV SCH ×2 (08:35→16:16)
[2019-11-12] MEDS ORDERED: DOXAZOSIN MESYLATE 4 MG PO SCH (10:00)
[2019-11-12] MEDS: COREG 12.5 MG PO SCH ×2 (10:10→21:09)
[2019-11-12] MEDS: ZYLOPRIM 100 MG PO SCH (10:11)
[2019-11-12] MEDS: Aldactone 25 MG PO SCH ×2 (10:12→16:16)
[2019-11-12] MEDS: CARDURA 2 MG PO SCH (10:12)
[2019-11-12] MEDS: Pepcid 20 MG VIAL IV SCH ×2 (10:16→21:09)
[2019-11-12] MEDS: ROCEPHIN 1 Gm-D5w 50 ml Bag** 1 G/50 ML IVPB IV SCH (10:17)
[2019-11-12] MEDS: Lantus Insulin SQ SCH (10:18)
[2019-11-12] MEDS: ENOXAPARIN SODIUM SQ SCH (10:18)
[2019-11-12] MEDS ORDERED: Lantus Insulin SQ SCH (11:31)
--- NOTE | 2019-11-12 11:35 | PCM.NOTE ---
Date and Time: 11/12/19 1132 Subjective Assessment: patient is feeling much better, no cough, no shortness of breath, no fever. he would like to go home today Objective Exam General Appearance: no apparent distress, obese Skin Exam: normal color, warm, dry Respiratory Exam: normal breath sounds, lungs clear, No respiratory distress Cardiovascular Exam: regular rate/rhythm, normal heart sounds Gastrointestinal/Abdomen Exam: soft, No tenderness, No mass OBJECTIVE DATA Vital Signs: Vital Signs - 24 hr Temp Pulse Resp BP BP Pulse Ox 11/12/19 11:00 23 11/12/19 10:00 78 12 96 11/12/19 09:00 25 H 11/12/19 08:00 97.9 F 70 16 136/65 98 11/12/19 07:34 68 18 98 11/12/19 07:00 21 11/12/19 06:00 78 16 95 11/12/19 05:00 18 11/12/19 04:00 98.1 F 67 16 130/62 99 11/12/19 03:00 18 11/12/19 02:00 62 18 96 11/12/19 01:00 17 11/12/19 00:00 97.0 F 66 17 145/61 98 11/11/19 23:00 18 11/11/19 22:00 77 18 98 11/11/19 21:00 18 11/11/19 20:00 97.8 F 97 H 18 133/66 99 11/11/19 19:45 82 18 98 11/11/19 18:54 18 11/11/19 17:51 22 11/11/19 17:00 22 11/11/19 16:31 97 F 88 18 123/80 95 11/11/19 16:00 18 11/11/19 15:00 23 11/11/19 14:00 95 H 23 98 11/11/19 12:00 98 F 88 18 96 Pain Assessment - Last Documented Pain Intensity 0 Pain Scale Used 0-10 Pain Scale Intake and Output: Intake & Output 11/09/19 11/10/19 11/11/19 11/12/19 11:59 11:59 11:59 11:59 Intake Total 3218 4200 Output Total 2333 4570 Balance 1093 2450 Weight 167 kg 169.4 kg Lab Results: Accuchecks Date 11/12/19 Date 11/12/19 Date 11/11/19 Date 11/11/19 Date 11/11/19 Date 11/11/19 Date 11/11/19 Time 04:00 Time 00:00 Time 20:00 Time 16:00 Time 15:10 Time 13:12 Time 12:04 Accucheck Value: 268 Accucheck Value: 472 Accucheck Value: 372 Accucheck Value: 385 Lab Results-Last 24 Hours 11/10/19 11/11/19 11/12/19 Range/Units 17:52 16:32 05:13 WBC 9.9 (4.0-10.5) K/mm3 RBC 4.77 (4.1-5.6) M/mm3 Hgb 14.0 (12.5-18.0) gm/dl Hct 42.3 (42-50) % MCV 88.7 (78-100) fl MCH 29.4 (26-32) pg MCHC 33.1 (32-36) g/dl RDW 14.6 H (11.5-14.0) % Plt Count 147 L (150-450) K/mm3 MPV 10.4 (7.5-11.0) fl Segmented Neutrophils 77 H (36.-66.) % Lymphocytes (Manual) 15 L (24-44) % Monocytes (Manual) 4 (0.0-12.0) % Eosinophils (Manual) 4 H (0.00-3.0) % Platelet Estimate DECREASED (NORMAL) RBC Morphology NORMAL Sodium (137-145) mmol/L Potassium (3.5-5.1) mmol/L Chloride (98-107) mmol/L Carbon Dioxide (22-30) mmol/L Anion Gap (5-15) MEQ/L BUN (9-20) mg/dL Creatinine (0.66-1.25) mg/dL Estimated GFR ML/MIN Glucose 425 H (74-106) mg/dL Calcium (8.4-10.2) mg/dL Total Bilirubin (0.2-1.3) mg/dL AST (17-59) U/L ALT (0-50) U/L Alkaline Phosphatase (38-126) U/L C-Reactive Prot, Quant 15.70 H (0.00-10.00) mg/L Serum Total Protein (6.3-8.2) g/dL Albumin (3.5-5.0) g/dL 11/12/19 Range/Units 05:13 WBC (4.0-10.5) K/mm3 RBC (4.1-5.6) M/mm3 Hgb (12.5-18.0) gm/dl Hct (42-50) % MCV (78-100) fl MCH (26-32) pg MCHC (32-36) g/dl RDW (11.5-14.0) % Plt Count (150-450) K/mm3 MPV (7.5-11.0) fl Segmented Neutrophils (36.-66.) % Lymphocytes (Manual) (24-44) % Monocytes (Manual) (0.0-12.0) % Eosinophils (Manual) (0.00-3.0) % Platelet Estimate (NORMAL) RBC Morphology Sodium 138 (137-145) mmol/L Potassium 4.5 (3.5-5.1) mmol/L Chloride 106 (98-107) mmol/L Carbon Dioxide 26 (22-30) mmol/L Anion Gap 10.3 (5-15) MEQ/L BUN 28 H (9-20) mg/dL Creatinine 1.46 H (0.66-1.25) mg/dL Estimated GFR 55.7 ML/MIN Glucose 270 H (74-106) mg/dL Calcium 9.0 (8.4-10.2) mg/dL Total Bilirubin 0.40 (0.2-1.3) mg/dL AST 24 (17-59) U/L ALT 27 (0-50) U/L Alkaline Phosphatase 124 (38-126) U/L C-Reactive Prot, Quant (0.00-10.00) mg/L Serum Total Protein 6.9 (6.3-8.2) g/dL Albumin 3.4 L (3.5-5.0) g/dL Radiology Exams: Radiology Procedures Category Date Time Status CHEST 1 VIEW (PORTABLE) Stat Exams 11/10/19 17:45 Completed Multi-Disciplinary Progress Notes: Multi-Disciplinary Progress Notes 11/12/19 10:17 Case Management Note by Floridalma Pitt S/W PATIENT - HE CONTINUES TO DENY ANY NEEDS REGARDING DC AT THIS TIME. ALL OF HIS MEDICAL EQUIPMENT IS IN GOOD WORKING CONDITION. HE HAS HIS TO ASSIST HIM NEEDED. PATIENT PLANS TO RETURN HOME TO HIS PRIOR LEVEL OF FUNCTIONING Initialized on 11/12/19 10:17 - END OF NOTE Assessment/Plan (1) Upper respiratory infection Current Visit: Yes Status: Acute Assessment & Plan: wbc normal, no oxygen requirement, chest xray normal. covid swab pending, likely home when resulted if negative Code(s): J06.9 - ACUTE UPPER RESPIRATORY INFECTION, UNSPECIFIED (2) Hyperglycemia due to type 2 diabetes mellitus Current Visit: Yes Status: Acute Qualifiers: Diabetes mellitus halfway insulin use: without terminal computer operator use Qualified Code(s): E11.65 - Type 2 diabetes mellitus with hyperglycemia Assessment & Plan: blood sugar improved, increased lantus to 50U, patient appears to have significant insulin resistance Code(s): E11.65 - TYPE 2 DIABETES MELLITUS WITH HYPERGLYCEMIA (3) Acute renal insufficiency Current Visit: Yes Status: Acute Assessment & Plan: improved with gentle hydration, was hypovolemic secondary to severe hyperglycemia on arrival Code(s): N28.9 - DISORDER OF KIDNEY AND URETER, UNSPECIFIED (4) Morbid obesity Current Visit: Yes Status: Acute Code(s): E66.01 - MORBID (SEVERE) OBESITY DUE TO EXCESS CALORIES
[2019-11-12] MEDS: Zithromax 500 MG/ 250 ML NaCl Premix 500 MG/250 ML IVPB IV SCH (21:10)
[2019-11-13] MEDS: Sodium Chloride 0.9% 1000 ML 1,000 ML IV SCH (00:03)
[2019-11-13] MEDS: HUMALOG SQ PRN ×2 (00:11→07:36)
[2019-11-13 05:13] LABS: Hematocrit 43.5 % (42-50); Hemoglobin 14.4 gm/dl (12.5-18.0); Mean Cell Volume 89.5 fl (78-100); Mean Corpuscular Hemoglobin 29.6 pg (26-32); Mean Corpuscular Hgb Concent. 33.1 g/dl (32-36); Platelet Count 150 K/mm3 (150-450); Red Blood Count 4.86 M/mm3 (4.1-5.6); Red Cell Distribution Width 14.9 % (11.5-14.0); White Blood Count 8.2 K/mm3 (4.0-10.5)
[2019-11-13 05:43] LABS: ALBUMIN 3.4 g/dL (3.5-5.0); ALKALINE PHOSPHATASE 114 U/L (38-126); ANION GAP 10.1 MEQ/L (5-15); BLOOD UREA NITROGEN 21 mg/dL (9-20); CHLORIDE 110 mmol/L (98-107); Calcium 9.3 mg/dL (8.4-10.2); Carbon Dioxide 25 mmol/L (22-30); Creatinine 1 1.26 mg/dL (0.66-1.25); Glucose 201 mg/dL (74-106); Potassium 4.1 mmol/L (3.5-5.1); SGOT/AST 24 U/L (17-59); SGPT/ALT 29 U/L (0-50); SODIUM 141 mmol/L (137-145); Total Protein 6.9 g/dL (6.3-8.2)
[2019-11-13 07:25] VITALS: BP 146/96
[2019-11-13 07:31] LABS: ANISOCYTOSIS 1+; ATYPICAL LYMPHS 1 %; BAND 1 % (0.0-2.0); Eosinophil 2 % (0.00-3.0); Lymphocytes 16 % (24-44); Monocyte 6 % (0.0-12.0); Neutrophils 74 % (36.-66.); Platelet Estimate NORMAL (NORMAL); Total Cells Counted 100
[2019-11-13] MEDS: PATIENT OWN MEDICATION IH SCH (07:54)
[2019-11-13] MEDS: ZYLOPRIM 100 MG PO SCH (09:04)
[2019-11-13] MEDS: CARDURA 2 MG PO SCH (09:05)
[2019-11-13] MEDS: ENOXAPARIN SODIUM SQ SCH (09:05)
[2019-11-13] MEDS: COREG 12.5 MG PO SCH (09:05)
[2019-11-13] MEDS: Aldactone 25 MG PO SCH (09:05)
[2019-11-13] MEDS: Pepcid 20 MG VIAL IV SCH (09:05)
[2019-11-13] MEDS: ROCEPHIN 1 Gm-D5w 50 ml Bag** 1 G/50 ML IVPB IV SCH (09:06)
[2019-11-13 10:51] VITALS: PULSE 84; O2SAT 93
--- NOTE | 2019-11-13 10:59 | PCM.DS ---
Discharge Summary Date of Admission: 11/10/19 20:45 Admitting Physician: ROSAS HAMMOND Primary Care Provider: ROSAS HAMMOND Allergies Allergies No Known Drug Allergies Allergy (Verified 11/10/19 17:41) Hospital Summary - Hospital Course Hospital Course: patient arrived with extremely high blood sugars and cough, feeling poorly. a1c >10% on arrival. has not been on any meds for blood sugars, states his metformin was stopped due to renal function. his covid-19 swab was negative, he is not on oxygen and feels great at time of discharge. has been treated with insulin during hospital stay, discussed need for meds and to monitor diabetes. he has testing supplies at home and voices understanding. - Vitals & Intake/Output Vital Signs: Vital Signs Temperature 98.0 F 11/13/19 10:00 Pulse Rate 84 11/13/19 10:50 Respiratory Rate 16 11/13/19 10:50 Blood Pressure 146/96 11/13/19 07:22 O2 Sat by Pulse Oximetry 93 L 11/13/19 10:50 Intake & Output: Intake & Output 11/10/19 11/11/19 11/12/19 11/13/19 11:59 11:59 11:59 11:59 Intake Total 3218 4200 5229 Output Total 2125 1750 2345 Balance 1093 2450 2884 Weight 167 kg 169.4 kg 168.4 kg - Lab Result Diagrams: 11/13/19 04:45 11/13/19 04:45 Lab Results-Last 24 Hrs: Accuchecks Date 11/13/19 Date 11/13/19 Date 11/13/19 Date 11/12/19 Time 07:30 Time 04:20 Time 00:00 Time 20:00 Accucheck Value: 198 Accucheck Value: 200 Accucheck Value: 312 Accucheck Value: 411 Accucheck Value: 352 Accucheck Value: 309 Lab Results-Last 24 Hours 11/13/19 11/13/19 Range/Units 04:45 04:45 WBC 8.2 (4.0-10.5) K/mm3 RBC 4.86 (4.1-5.6) M/mm3 Hgb 14.4 (12.5-18.0) gm/dl Hct 43.5 (42-50) % MCV 89.5 (78-100) fl MCH 29.6 (26-32) pg MCHC 33.1 (32-36) g/dl RDW 14.9 H (11.5-14.0) % Plt Count 150 (150-450) K/mm3 MPV 10.0 (7.5-11.0) fl Segmented Neutrophils 74 H (36.-66.) % Band Neutrophils 1 (0.0-2.0) % Lymphocytes (Manual) 16 L (24-44) % Monocytes (Manual) 6 (0.0-12.0) % Eosinophils (Manual) 2 (0.00-3.0) % Atypical Lymphocytes 1 % Platelet Estimate NORMAL (NORMAL) RBC Morphology ABNORMAL Anisocytosis 1+ Sodium 141 (137-145) mmol/L Potassium 4.1 (3.5-5.1) mmol/L Chloride 110 H (98-107) mmol/L Carbon Dioxide 25 (22-30) mmol/L Anion Gap 10.1 (5-15) MEQ/L BUN 21 H (9-20) mg/dL Creatinine 1.26 H (0.66-1.25) mg/dL Estimated GFR > 60.0 ML/MIN Glucose 201 H (74-106) mg/dL Calcium 9.3 (8.4-10.2) mg/dL Total Bilirubin 0.40 (0.2-1.3) mg/dL AST 24 (17-59) U/L ALT 29 (0-50) U/L Alkaline Phosphatase 114 (38-126) U/L Serum Total Protein 6.9 (6.3-8.2) g/dL Albumin 3.4 L (3.5-5.0) g/dL Micro Results-Entire Visit: Microbiology 11/10/19 17:52 Blood Culture - Preliminary Blood NO GROWTH TO DATE Accuchecks Date 11/13/19 Date 11/13/19 Date 11/13/19 Date 11/12/19 Time 07:30 Time 04:20 Time 00:00 Time 20:00 Accucheck Value: 198 Accucheck Value: 200 Accucheck Value: 312 Accucheck Value: 411 Accucheck Value: 352 Accucheck Value: 309 - Procedures and Test Procedures and Tests throughout Hospitalization: Therapy Orders & Screens 11/10/19 20:48 Respiratory Therapy Consult ROUTINE Comment: Reason For Exam: 11/10/19 21:38 Respiratory MDI UD Comment: Respiratory Therapy Assessment DAILY Comment: 11/10/19 21:45 BiPap/CPAP ROUTINE Comment: Discharge Exam General Appearance: no apparent distress, obese Neurologic Exam: alert, oriented x 3, cooperative Respiratory Exam: normal breath sounds, lungs clear, No respiratory distress Cardiovascular Exam: regular rate/rhythm, normal heart sounds Gastrointestinal/Abdomen Exam: soft, No tenderness, No mass Extremity Exam: normal inspection, normal range of motion Final Diagnosis/Problem List - Final Discharge Diagnosis/Problem (1) Upper respiratory infection Current Visit: Yes Status: Acute Assessment & Plan: covid-19 negative, appears viral and resolved. no further abx therapy required on discharge. Code(s): J06.9 - ACUTE UPPER RESPIRATORY INFECTION, UNSPECIFIED (2) Hyperglycemia due to type 2 diabetes mellitus Current Visit: Yes Status: Acute Assessment & Plan: lantus 50 units daily and novolog sliding scale ordered from hospital, also add tradjenta po due to renal dysfunction. advised to check blood sugar tid, log and f/u in office in 1 week Code(s): E11.65 - TYPE 2 DIABETES MELLITUS WITH HYPERGLYCEMIA (3) Yiqag-lw-qbsltye kidney injury Current Visit: Yes Status: Acute Code(s): N17.9 - ACUTE KIDNEY FAILURE, UNSPECIFIED; N18.9 - CHRONIC KIDNEY DISEASE, UNSPECIFIED (4) Morbid obesity Current Visit: Yes Status: Acute Code(s): E66.01 - MORBID (SEVERE) OBESITY DUE TO EXCESS CALORIES - Discharge Disposition: Home, Self-Care Condition: Stable Prescriptions: New Insulin Glargine,Hum.rec.anlog [Lantus Solostar] 50 unit SQ DAILY #15 ml Insulin Aspart [NovoLOG Insulin] 1 unit SQ TID #5 pens Linagliptin [Tradjenta] 5 mg PO DAILY #30 tablet Continue Torsemide [Demadex] 40 mg PO BID Armodafinil [Nuvigil] 250 mg PO DAILY Spironolactone [Aldactone] 50 mg PO BID Carvedilol [Coreg] 37.5 mg PO BID Nitroglycerin 0.4 mg (Ed) [Nitrostat 0.4 MG (ED)] 0.4 mg SL UD PRN PRN Reason: Chest Pain Allopurinol [Zyloprim] 400 mg PO DAILY Probenecid 500 mg PO BID Doxazosin Mesylate 4 mg PO DAILY Instructions: Diabetes and Diet, How to Keep Track of Your Blood Sugar Additional Instructions: please give a copy of high scale sliding scale to give coverage with checking his blood sugars three times daily and insulin administration education. will go home on lantus and novolog pens. Follow up with: ATTILA RÍOS [NON-STAFF PHY W/O PRIVILEGES] - 11/21/19 8:15 am Forms: Discharge Instructions
== END 2019-11-13 11:29 | disposition home or self-care (01) | DRG 153 ==
LOC: ED 17:12 → MED SURG 20:45
PROVIDERS: ADMIT Family Medicine; ATTEND Family Medicine
DX: J06.9 Acute upper respiratory infection, unspecified (principal); N18.4 Chronic kidney disease, stage 4 (severe); N17.9 Acute kidney failure, unspecified; E11.22 Type 2 diabetes mellitus with diabetic chronic kidney disease; E11.65 Type 2 diabetes mellitus with hyperglycemia; I12.9 Hypertensive chronic kidney disease with stage 1 through stage 4 chronic kidney disease, or unspecified chronic kidney disease; R06.02 Shortness of breath; J44.9 Chronic obstructive pulmonary disease, unspecified; E66.01 Morbid (severe) obesity due to excess calories; Z79.899 Other long term (current) drug therapy
CPT/HCPCS: 36000; 36415; 71045; 80048; 80053; 80076; 81001; 82805; 82947; 82962; 83036; 83605; 83615; 83735; 83880; 84484; 85025; 85027; 86140; 87040; 93005; 93041; 94640; 94760; 94762; 96365; 96367; 96368; 99285; 99291; U0001; 99000; J0456; J0696; J1650; J1815; J1817; A9270-GY

== ENCOUNTER 2020-10-15 21:35 | Observation (INO) | payer MEDICARE ==
[2020-10-15] MEDS ORDERED: Sodium Chloride 0.9% 1000 ML 1,000 ML IV STA ×2 (21:45→23:00)
[2020-10-15 22:17] LABS: Absolute Neutrophil Ct (ANC) 8.23 (1.4-6.9); BASOPHIL % 0.4 % (0.0-0.4); Basophil (Absolute #) 0.04 (0-0.4); Eosinophil % 2.4 % (0.00-5.0); Eosinophil (Absolute #) 0.27 (0-0.5); Hematocrit 43.9 % (42-50); Hemoglobin 14.5 gm/dl (12.5-18.0); Lymphocyte (Absolute #) 2.07 (1.0-4.6); Lymphocytes % 18.1 % (24.0-44.0); Mean Cell Volume 85.6 fl (78-100); Mean Corpuscular Hemoglobin 28.3 pg (26-32); Mean Platelet Volume 10.5 fl (7.5-11.0); Neutrophil % 72.1 % (36.0-66.0); Platelet Count 162 K/mm3 (150-450); Red Blood Count 5.13 M/mm3 (4.1-5.6); Red Cell Distribution Width 14.6 % (11.5-14.0); White Blood Count 11.4 K/mm3 (4.0-10.5)
[2020-10-15 22:22] LABS: Appearance CLEAR (CLEAR); Bilirubin NEGATIVE (NEGATIVE); Blood NEGATIVE Ery/ul (0-5); Glucose >=500 mg/dL (NEGATIVE); Ketones NEGATIVE (NEGATIVE); Leukocyte Esterase NEGATIVE (NEGATIVE); Mucus SLIGHT /HPF (NEGATIVE); Nitrite NEGATIVE (NEGATIVE); Protein,Urine Dip NEGATIVE (Negative); Specific Gravity 1.007 (1.005-1.025); Urobilinogen NEGATIVE mg/dL (0-1)
[2020-10-15 22:30] LABS: Bacteria NONE SEEN /HPF (NEGATIVE)
[2020-10-15 22:31] LABS: ALBUMIN 4.1 g/dL (3.5-5.0); BILIRUBIN,TOTAL 0.4 mg/dL (0.2-1.3); Creatinine 1 1.98 mg/dL (0.66-1.25); MAGNESIUM 2.1 mg/dL (1.6-2.3); Total Protein 7.5 g/dL (6.3-8.2)
--- NOTE | 2020-10-15 22:52 | ERPHSYRPT ---
- History of Present Illness Time Seen by Provider: 10/15/20 21:44 Exam Limitations: no limitations Patient Subjective Stated Complaint: pt states "I have had high blood sugar for the past couple days." Triage Nursing Assessment: pt came into the er via ambulance; pt is axo x3; c/o hyperglycemia; no bed side report given by medic; pt states that he gave himself 30 units of novlog and 73 units of lantus; pt blood sugar on arrival was high, meter was unable to give a number; pt denies any pain; pt states that he has had a cough for the past couple weeks; clear lung sounds in all lobes anterior and posterior; clear heart tone; active bowel sounds in all quads; vitals wnl Physician History: Patient is a 45-year-old male with history of type 1 diabetes presents to our ED for evaluation of hyperglycemia that has been present for the past 3 days. Patient states his blood sugar has been consistently in the 500 range at home. Patient states that he is otherwise felt well. No fever. No nausea or vomiting. No chest pain or shortness of breath. No urinary symptomology. No trauma. Patient took 30 units of NovoLog and 73 units of Lantus approximately 2 to 3 hours prior to arrival. Symptoms are mild in intensity. No specific worsening or improving factors. Patient voices no other complaints or concerns at this time. Timing/Duration: day(s) (3 days) Severity: moderate Modifying Factors: Improves With: nothing Associated Symptoms: denies symptoms Allergies/Adverse Reactions: No Known Drug Allergies Allergy (Verified 10/15/20 22:18) Home Medications: Armodafinil [Nuvigil] 250 mg PO DAILY 11/22/16 [History] Spironolactone [Aldactone] 50 mg PO BID 11/22/16 [History] Torsemide [Demadex] 40 mg PO BID 11/22/16 [History] Allopurinol [Zyloprim] 400 mg PO DAILY 04/03/18 [History] Carvedilol [Coreg] 37.5 mg PO BID 04/03/18 [History] Doxazosin Mesylate 4 mg PO DAILY 04/05/19 [History] Probenecid 500 mg PO BID 04/05/19 [History] Aspirin EC 81 mg [Ecotrin 81 mg] 81 mg PO DAILY 10/15/20 [History] Glimepiride 4 mg [Amaryl 4 mg] 4 mg PO BID 10/15/20 [History] Insulin Aspart [NovoLOG Insulin] 30 unit SQ TID 10/15/20 [History] Insulin Glargine,Hum.rec.anlog [Lantus Solostar] 73 unit SQ HS 10/15/20 [History] Metolazone 2.5 mg [Zaroxolyn 2.5 MG] 2.5 mg PO UD 10/15/20 [History] Potassium Chloride 10 Meq Tab* [Klor Con 10 MEQ] 10 meq PO BID 10/15/20 [History] Hx Tetanus, Diphtheria Vaccination/Date Given: No Hx Influenza Vaccination/Date Given: No Hx Pneumococcal Vaccination/Date Given: No Travel Risk - International Travel Have you traveled outside of the country in past 3 weeks: No - Coronavirus Screening Are you exhibiting any of the following symptoms?: Yes Symptoms: Cough: New Onset Close contact with a COVID-19 positive Pt in past 14-21 Days: No - Review of Systems Constitutional: No Symptoms, No Fever, No Chills Eyes: No Symptoms Ears, Nose, & Throat: No Symptoms Respiratory: No Symptoms, No Cough, No Dyspnea Cardiac: No Symptoms, No Chest Pain, No Edema, No Syncope Abdominal/Gastrointestinal: No Symptoms, No Abdominal Pain, No Nausea, No Vomiting, No Diarrhea Genitourinary Symptoms: No Symptoms, No Dysuria Musculoskeletal: No Symptoms, No Back Pain, No Neck Pain Skin: No Symptoms, No Rash Neurological: No Symptoms, No Dizziness, No Focal Weakness, No Sensory Changes Psychological: No Symptoms Endocrine: No Symptoms Hematologic/Lymphatic: No Symptoms Immunological/Allergic: No Symptoms All Other Systems: Reviewed and Negative - Past Medical History Pertinent Past Medical History: Yes Neurological History: No Pertinent History ENT History: No Pertinent History Cardiac History: Hypertension Respiratory History: Asthma, Bronchitis, COPD Endocrine Medical History: Diabetes Type II Musculoskeletal History: Arthritis GI Medical History: No Pertinent History History: Renal Disease Psycho-Social History: No Pertinent History Male Reproductive Disorders: No Pertinent History Other Medical History: Stage 4 kidney disease - Past Surgical History Past Surgical History: Yes Neuro Surgical History: No Pertinent History Cardiac: Cardiac Catheterization Respiratory: No Pertinent History Gastrointestinal: No Pertinent History Genitourinary: No Pertinent History Musculoskeletal: Other Male Surgical History: No Pertinent History Other Surgical History: recent removal of toe nail, knee scope. - Social History Smoking Status: Never smoker Exposure to second hand smoke: No Alcohol Use: None Drug Use: none Patient Lives Alone: No Significant Family History: heart disease, hypertension - Nursing Vital Signs Nursing Vital Signs: Initial Vital Signs Temperature 98.3 F 10/15/20 21:38 Pulse Rate 73 10/15/20 21:38 Respiratory Rate 20 10/15/20 21:38 Blood Pressure 139/76 10/15/20 21:38 O2 Sat by Pulse Oximetry 97 10/15/20 21:38 Pain Scale Pain Intensity 0 - Physical Exam General Appearance: no apparent distress, alert, other (Morbidly obese male) Eye Exam: PERRL/EOMI, eyes nml inspection Ears, Nose, Throat Exam: normal ENT inspection, TMs normal, pharynx normal, moist mucous membranes Neck Exam: normal inspection, non-tender, supple, full range of motion Respiratory Exam: normal breath sounds, lungs clear, No respiratory distress Cardiovascular Exam: regular rate/rhythm, normal heart sounds, normal peripheral pulses Gastrointestinal/Abdomen Exam: soft, normal bowel sounds, No tenderness, No mass Back Exam: normal inspection, normal range of motion, No CVA tenderness, No vertebral tenderness Extremity Exam: normal inspection, normal range of motion, pelvis stable Neurologic Exam: alert, oriented x 3, cooperative, normal mood/affect, nml cerebellar function, nml station & gait, sensation nml, No motor deficits Skin Exam: normal color, warm, dry, No rash Lymphatic Exam: No adenopathy SpO2 Interpretation: normal SpO2: 99 O2 Delivery: Room Air - Course Nursing assessment & vital signs reviewed: Yes EKG Interpreted by Me: RATE (73), Sinus Rhythm, NORMAL AXIS, NORMAL INTERVALS - Radiology Exams Chest X-ray Interpretation: Interpreted by me (Lung esparza, borderline cardiomegaly, intact bony thorax) Ordered Tests: Active Orders 24 hr Category Date Time Status Farm[employer] STAT Care 10/15/20 21:46 Completed EKG-ER Only STAT Care 10/15/20 21:45 Completed IV Insertion STAT Care 10/15/20 21:45 Completed Pulse Oximetry (ED) STAT Care 10/15/20 21:45 Completed CHEST 1 VIEW (PORTABLE) Stat Exams 10/15/20 22:07 Taken BLOOD CULTURE Stat Lab 10/15/20 22:10 Received CBC W DIFF Stat Lab 10/15/20 22:00 Completed CMP Stat Lab 10/15/20 22:00 Completed CULTURE,URINE Stat Lab 10/15/20 22:00 Received MAGNESIUM Stat Lab 10/15/20 22:00 Completed TROPONIN Q3H Lab 10/15/20 22:00 Completed TROPONIN Q3H Lab 10/16/20 01:08 Received TROPONIN Q3H Lab 10/16/20 04:00 Ordered TROPONIN Q3H Lab 10/16/20 07:00 Ordered TROPONIN Q3H Lab 10/16/20 10:00 Ordered UA W/RFX UR CULTURE Stat Lab 10/15/20 22:00 Completed Medication Summary Generic Name Dose Route Start Last Admin Trade Name Freq PRN Reason Stop Dose Admin Sodium Chloride 1,000 mls @ 100 mls/hr 10/16/20 01:30 Sodium Chloride 0.9% 1000 Ml IV 11/15/20 01:29 .Q10H STEVAN Discontinued Medications Generic Name Dose Route Start Last Admin Trade Name Freq PRN Reason Stop Dose Admin Sodium Chloride 1,000 mls @ 999 mls/hr 10/15/20 21:45 10/15/20 23:16 Sodium Chloride 0.9% 1000 Ml IV 10/15/20 22:45 Infused .Q1H1M STA Infusion Sodium Chloride 1,000 mls @ 999 mls/hr 10/15/20 23:00 10/16/20 00:23 Sodium Chloride 0.9% 1000 Ml IV 10/16/20 00:00 Infused .Q1H1M STA Infusion Lab/Rad Data: Laboratory Result Diagrams 10/15/20 22:00 10/15/20 22:00 Laboratory Results 10/15/20 10/15/20 10/15/20 Range/Units 23:42 22:00 22:00 WBC (4.0-10.5) K/mm3 RBC (4.1-5.6) M/mm3 Hgb (12.5-18.0) gm/dl Hct (42-50) % MCV (78-100) fl MCH (26-32) pg MCHC (32-36) g/dl RDW (11.5-14.0) % Plt Count (150-450) K/mm3 MPV (7.5-11.0) fl Gran % (36.0-66.0) % Eos # (Auto) (0-0.5) Absolute Lymphs (auto) (1.0-4.6) Absolute Monos (auto) (0.0-1.3) Lymphocytes % (24.0-44.0) % Monocytes % (0.0-12.0) % Eosinophils % (0.00-5.0) % Basophils % (0.0-0.4) % Absolute Granulocytes (1.4-6.9) Basophils # (0-0.4) Sodium (137-145) mmol/L Potassium (3.5-5.1) mmol/L Chloride (98-107) mmol/L Carbon Dioxide (22-30) mmol/L Anion Gap (5-15) MEQ/L BUN (9-20) mg/dL Creatinine (0.66-1.25) mg/dL Estimated GFR ML/MIN Glucose (74-106) mg/dL Calcium (8.4-10.2) mg/dL Magnesium (1.6-2.3) mg/dL Total Bilirubin (0.2-1.3) mg/dL AST (17-59) U/L ALT (0-50) U/L Alkaline Phosphatase (38-126) U/L Troponin I < 0.012 (0.000-0.034) ng/mL Serum Total Protein (6.3-8.2) g/dL Albumin (3.5-5.0) g/dL Urine Color STRAW (YELLOW) Urine Appearance CLEAR (CLEAR) Urine pH 6.0 (5-6) Ur Specific [place] 1.007 (1.005-1.025) Urine Protein NEGATIVE (Negative) Urine Ketones NEGATIVE (NEGATIVE) Urine Blood NEGATIVE (0-5) Willy/ul Urine Nitrite NEGATIVE (NEGATIVE) Urine Bilirubin NEGATIVE (NEGATIVE) Urine Urobilinogen NEGATIVE (0-1) mg/dL Ur Leukocyte Esterase NEGATIVE (NEGATIVE) Urine WBC (Auto) NONE (0-5) /HPF Urine RBC (Auto) NONE (0-2) /HPF U Epithel Cells (Auto) NONE (FEW) /HPF Urine Bacteria (Auto) NONE SEEN (NEGATIVE) /HPF Urine Mucus (Auto) SLIGHT (NEGATIVE) /HPF Urine Culture Reflexed NO (NO) Urine Glucose >=500 (NEGATIVE) mg/dL Influenza Type A Ag NEGATIVE (NEGATIVE) Influenza Type B Ag NEGATIVE (NEGATIVE) RSV (PCR) NEGATIVE (Negative) SARS-CoV-2 (PCR) NEGATIVE (NEGATIVE) 10/15/20 10/15/20 Range/Units 22:00 22:00 WBC 11.4 H (4.0-10.5) K/mm3 RBC 5.13 (4.1-5.6) M/mm3 Hgb 14.5 (12.5-18.0) gm/dl Hct 43.9 (42-50) % MCV 85.6 (78-100) fl MCH 28.3 (26-32) pg MCHC 33.0 (32-36) g/dl RDW 14.6 H (11.5-14.0) % Plt Count 162 (150-450) K/mm3 MPV 10.5 (7.5-11.0) fl Gran % 72.1 H (36.0-66.0) % Eos # (Auto) 0.27 (0-0.5) Absolute Lymphs (auto) 2.07 (1.0-4.6) Absolute Monos (auto) 0.80 (0.0-1.3) Lymphocytes % 18.1 L (24.0-44.0) % Monocytes % 7.0 (0.0-12.0) % Eosinophils % 2.4 (0.00-5.0) % Basophils % 0.4 (0.0-0.4) % Absolute Granulocytes 8.23 H (1.4-6.9) Basophils # 0.04 (0-0.4) Sodium 127 L (137-145) mmol/L Potassium 4.0 (3.5-5.1) mmol/L Chloride 86 L (98-107) mmol/L Carbon Dioxide 29 (22-30) mmol/L Anion Gap 16.0 H (5-15) MEQ/L BUN 51 H (9-20) mg/dL Creatinine 1.98 H (0.66-1.25) mg/dL Estimated GFR 39.0 ML/MIN Glucose 581 H* (74-106) mg/dL Calcium 10.0 (8.4-10.2) mg/dL Magnesium 2.1 (1.6-2.3) mg/dL Total Bilirubin 0.40 (0.2-1.3) mg/dL AST 20 (17-59) U/L ALT 23 (0-50) U/L Alkaline Phosphatase 139 H (38-126) U/L Troponin I (0.000-0.034) ng/mL Serum Total Protein 7.5 (6.3-8.2) g/dL Albumin 4.1 (3.5-5.0) g/dL Urine Color (YELLOW) Urine Appearance (CLEAR) Urine pH (5-6) Ur Specific [place] (1.005-1.025) Urine Protein (Negative) Urine Ketones (NEGATIVE) Urine Blood (0-5) Willy/ul Urine Nitrite (NEGATIVE) Urine Bilirubin (NEGATIVE) Urine Urobilinogen (0-1) mg/dL Ur Leukocyte Esterase (NEGATIVE) Urine WBC (Auto) (0-5) /HPF Urine RBC (Auto) (0-2) /HPF U Epithel Cells (Auto) (FEW) /HPF Urine Bacteria (Auto) (NEGATIVE) /HPF Urine Mucus (Auto) (NEGATIVE) /HPF Urine Culture Reflexed (NO) Urine Glucose (NEGATIVE) mg/dL Influenza Type A Ag (NEGATIVE) Influenza Type B Ag (NEGATIVE) RSV (PCR) (Negative) SARS-CoV-2 (PCR) (NEGATIVE) - Progress Progress: improved Progress Note: Patient reassessed. He feels well. No chest pain or shortness of breath. No nausea vomiting or diaphoresis. Work-up reveals hyponatremia. Hyperglycemia. Elevated anion gap. Mild DKA. Treatment initiated with 2 L of IV fluids. We will repeat labs and assess electrolytes and glucose. Management will be based on the results of the repeat lab work-up. Case discussed with Dr. De Guzman who accepts admission to observation. Plan of care discussed with patient. He agrees to admission to [facility] for further evaluation and treatment. Portions of this note were created with voice recognition technology. There may be grammatical, spelling, punctuation or sound alike errors 10/16/20 01:27 10/16/20 01:28 Discussed with : Eb Will see patient in: hospital (observation) Counseled pt/family regarding: lab results, diagnosis - Departure Departure Disposition: Observation Clinical Impression: Hyponatremia, DKA (diabetic ketoacidoses), Hyperglycemia, Chronic renal insufficiency Condition: Stable Critical Care Time: No
[2020-10-16 00:21] LABS: INFLUENZA A NEGATIVE (NEGATIVE); INFLUENZA B NEGATIVE (NEGATIVE); RESPIRATORY SYNCTIAL VIRUS NEGATIVE (Negative)
[2020-10-16] MEDS ORDERED: Sodium Chloride 0.9% 1000 ML 1,000 ML IV SCH (01:30)
[2020-10-16] MEDS: HUMALOG SQ PRN ×2 (02:44→06:51)
[2020-10-16 04:31] LABS: ALBUMIN 3.7 g/dL (3.5-5.0); ANION GAP 13.5 MEQ/L (5-15); BILIRUBIN,TOTAL 0.3 mg/dL (0.2-1.3); Calcium 9.5 mg/dL (8.4-10.2); Creatinine 1 1.78 mg/dL (0.66-1.25); EST GLOMERULAR FILTRATION RATE 44.1 ML/MIN; Potassium 3.6 mmol/L (3.5-5.1); Total Protein 7.1 g/dL (6.3-8.2)
[2020-10-16 04:35] LABS: BASOPHIL % 0.3 % (0.0-0.4); Basophil (Absolute #) 0.03 (0-0.4); Eosinophil % 2.4 % (0.00-5.0); Eosinophil (Absolute #) 0.24 (0-0.5); Hematocrit 42.8 % (42-50); Hemoglobin 14.2 gm/dl (12.5-18.0); Lymphocyte (Absolute #) 2.16 (1.0-4.6); Lymphocytes % 21.3 % (24.0-44.0); Mean Cell Volume 85.6 fl (78-100); Mean Corpuscular Hemoglobin 28.4 pg (26-32); Mean Corpuscular Hgb Concent. 33.2 g/dl (32-36); Mean Platelet Volume 10.2 fl (7.5-11.0); Monocyte (Absolute #) 0.72 (0.0-1.3); Monocytes % 7.1 % (0.0-12.0); Neutrophil % 68.9 % (36.0-66.0); Platelet Count 155 K/mm3 (150-450); Red Cell Distribution Width 14.8 % (11.5-14.0); White Blood Count 10.2 K/mm3 (4.0-10.5)
[2020-10-16 05:03] VITALS: PULSE 71; O2SAT 99
[2020-10-16] MEDS ORDERED: AMARYL 4 MG PO SCH (08:00)
[2020-10-16] MEDS ORDERED: HUMALOG SQ SCH (08:30)
[2020-10-16] MEDS ORDERED: Zaroxolyn 2.5 MG PO SCH (08:30)
--- NOTE | 2020-10-16 08:44 | XRAY ---
Indication: Pneumonia. Hyperglycemia. Comparison: November 10, 2019. Portable chest remains underinflated and clear. Heart is not enlarged for AP portable technique. Bony thorax intact again with mild degenerative changes. No new/acute findings. Impression: Continued nonacute underinflated chest.
[2020-10-16] MEDS ORDERED: MEDICATION INTERVENTION MC SCH ×2 (08:45)
--- NOTE | 2020-10-16 08:50 | SSS ---
DISCHARGE DIAGNOSIS: DIABETES TYPE I, OUT OF CONTROL. HISTORY OF PRESENT ILLNESS: The patient is a 45 year-old white male patient who presented to the emergency room and reported he began having trouble with high blood sugars over the past couple of days. The patient was noted to be type I. He had not had any stressors recently as far as nausea, vomiting or diarrhea. He just was not able to get his sugar under control. He presented himself to the emergency room. He was given 2 liters of fluid and IV insulin and admitted for observation on low dose sliding scale coverage every four hours. By the die out worker hours, the patient was back down to just above 200 on his blood sugars from initial above 600. PAST MEDICAL/SURGICAL HISTORY: The patient's medical history is complicated otherwise by history of myocardial infarctions and renal insufficiency problems. He apparently had been diagnosed also with chronic obstructive pulmonary disease, asthma, arthritis, stage IV kidney disease. He had recent removal of a toenail and knee scope done which may have been his trigger. HOME MEDICATIONS: Nuvigil 250 mg a day, spironolactone 50 mg b.i.d., torsemide 40 mg b.i.d., Zyloprim 400 mg a day, carvedilol 37.5 mg b.i.d., doxazosin 4 mg daily, Probenecid 500 mg b.i.d., aspirin 81 mg a day, glimepiride 4 mg daily, NovoLog insulin 30 units t.i.d., Insulin Glargine 73 units at night, Zaroxolyn 2.5 mg a day, potassium 10 mEq twice a day. ALLERGIES: NKDA. PHYSICAL EXAMINATION: The patient's vital signs on admission showed his temperature to be 98.3F, pulse 73, respiratory rate 20 and blood pressure 139/76. O2 saturation 97% on room air. HEENT: Normocephalic, atraumatic. Pupils equal round reactive to light. Extraocular movements intact. Oropharynx is slightly dry. NECK: Supple without lymphadenopathy, thyromegaly or JVD. CHEST: Clear to auscultation. HEART: Regular rate and rhythm without murmurs, rubs or gallops. ABDOMEN: Soft. No palpable masses. EXTREMITIES: Without cyanosis, clubbing or edema. NEUROLOGIC: The patient is alert and oriented x3. No focal deficits were noted. LAB DATA AND TESTS: The patient's evaluation otherwise included an EKG showing normal sinus rhythm and essentially normal appearance. He had chest x-ray which showed no evidence of acute pathology. The patient's initial labs otherwise showed troponins to be less than 0.012. His sugar was 581, BUN 51, creatinine 1.98. Sodium was slightly low at 127. Liver enzymes were normal. Anion gap was slightly elevated at 16.0. His white count was slightly high at 11,400. Hemoglobin 14.5, PLT count 162,000. UA showed sugar in urine otherwise 1.007 and specific gravity and otherwise was normal. COVID-19, RSV, influenza A and B were all negative. HOSPITAL COURSE: The patient's overnight fluids have brought his BUN down to 46 with creatinine 1.8. His die out worker sugar was 333 but was back down to 200 again after administration of his sliding scale coverage. By the time I saw him the next morning the patient was feeling great and wished to go home. We were okay with this. We asked him to hold off on his aspirin for a while and to make sure he pushed the fluids and see hid primary care provider in the office next week which is Dr. Harvey Marks.
[2020-10-16 09:52] VITALS: BP 106/60
[2020-10-16] MEDS ORDERED: CARVEDILOL 37.5 MG PO SCH (10:00)
[2020-10-16] MEDS ORDERED: ZYLOPRIM 100 MG PO SCH (10:00)
[2020-10-16] MEDS ORDERED: CARDURA 2 MG PO SCH (10:00)
[2020-10-16] MEDS ORDERED: COREG 12.5 MG PO SCH (10:00)
[2020-10-16] MEDS ORDERED: NON-FORMULARY ITEM (Armodafinil [Nuvigil] 250 MG) PO SCH (10:00)
[2020-10-16] MEDS ORDERED: DEMADEX 20 MG PO SCH (10:00)
[2020-10-16] MEDS ORDERED: DOXAZOSIN MESYLATE 4 MG PO SCH (10:00)
[2020-10-16] MEDS ORDERED: Aldactone 25 MG PO SCH (10:00)
[2020-10-16] MEDS ORDERED: Klor Con 10 MEQ PO SCH (10:00)
[2020-10-16] MEDS ORDERED: INSULIN ASPART 30 UNIT SQ SCH (10:00)
[2020-10-16] MEDS ORDERED: NON-FORMULARY ITEM (Spironolactone [Aldactone] 50 MG) PO SCH (10:00)
[2020-10-16] MEDS ORDERED: INSULIN GLARGINE SQ SCH (22:00)
[2020-10-16] MEDS ORDERED: Lantus Insulin SQ SCH (22:00)
== END 2020-10-16 09:30 | disposition home or self-care (01) ==
LOC: ED 21:35 → MED SURG 10-16 01:15
PROVIDERS: ADMIT Family Medicine; ATTEND Family Medicine
DX: E10.65 Type 1 diabetes mellitus with hyperglycemia (principal); Z79.4 Long term (current) use of insulin; J44.9 Chronic obstructive pulmonary disease, unspecified; E87.1 Hypo-osmolality and hyponatremia; I10 Essential (primary) hypertension; Z87.441 Personal history of nephrotic syndrome; Z20.828 Contact with and (suspected) exposure to other viral communicable diseases
CPT/HCPCS: 0241U; 36000; 36415; 71045; 80053; 81001; 82947; 83735; 84484; 85025; 87040; 87086; 93005; 93041; 93268; 94760; 96360; 99285; G0378; J1817

== ENCOUNTER 2021-04-12 11:09 | Day surgery (SDC) | payer MEDICARE ==
--- NOTE | 2021-04-12 08:35 | HP ---
DATE OF SURGERY: 04/12/2021 HISTORY OF PRESENT ILLNESS: The patient is a 45 year-old with enlarging cyst or nodule on his right neck. No drainage currently. PAST MEDICAL HISTORY: Heart disease, myocardial infarction in 2016, diabetes, kidney disease, chronic lung disease, gout. PAST SURGICAL HISTORY: MEDICATIONS: Advair HFA, allopurinol, armodafinil, carvedilol, doxazosin, glimepiride, Humalog, nitroglycerin, potassium chloride, Probenecid, spironolactone, torsemide, Toujeo, Trulicity, Ventolin HFA. ALLERGIES: NKDA. FAMILY HISTORY: Heart disease, diabetes, hypertension. SOCIAL HISTORY: Denies current smoking. REVIEW OF SYSTEMS: Fourteen systems reviewed. No chest pain or palpitations. Other systems negative or noncontributory as above and per preadmission questionnaire. PHYSICAL EXAMINATION: GENERAL: A chronically ill gentleman. HEENT: Sclerae nonicteric. NECK: No JVD. He has question of a cyst or nodule on the right neck area. CHEST: Equal excursion, breath sounds symmetrical. CVS: Regular rate and rhythm. ABDOMEN: Soft. No peritoneal signs. EXTREMITIES: No significant edema. NEURO: Alert, oriented, moving extremities symmetrically. PSYCH: Appropriate mood and affect. IMPRESSION: Enlarging cyst or nodule right neck. I feel the patient will benefit from excisional biopsy. Risks and benefits explained in detail including but not limited to bleeding or infection, risk of wound dehiscence possibly requiring packing, risk of splitting some sutures, risk of aches, pains, burning or numbness, general risk of anesthesia, deep vein thrombosis, risk of sensory, motor or nerve irritation, scar formation, injury, risk of hoarseness, weakness of shoulder but not limited to, consent obtained. Will proceed with excisional biopsy of right neck nodule as an outpatient.
[~2021-04-12 11:09] MED LIST changes: -Lactated Ringers 1,000 ML IV ONE; -Lactated Ringers 1,000 ML IV SCH; -Sensorcaine 0.25% 10 ML ONE; +XYLOCAINE 1% HCL 20 ML MDV ONE
[2021-04-12] MEDS ORDERED: Sodium Chloride 0.9% 1000 ML 1,000 ML ONE (11:27)
[2021-04-12] MEDS ORDERED: Sodium Chloride 0.9% 1000 ML 1,000 ML IV SCH (11:30)
[2021-04-12] MEDS ORDERED: Sensorcaine 0.25% 10 ML ONE (13:01)
[2021-04-12] MEDS ORDERED: Xylocaine-Mpf 2% 5 Ml Vial ONE (13:13)
[2021-04-12] MEDS ORDERED: BRIDION 200MG/2ML IV ONE (13:13)
[2021-04-12] MEDS ORDERED: Zemuron 100 MG/10 ML ONE (13:13)
[2021-04-12] MEDS ORDERED: TORAdol 30 mg Injection ONE (13:13)
[2021-04-12] MEDS ORDERED: Decadron 4 MG INJ ONE (13:13)
[2021-04-12] MEDS ORDERED: Zofran 4 MG/2 ML VIAL ONE (13:13)
[2021-04-12] MEDS ORDERED: DIPRIVAN 200 MG/20 ML IV ONE (13:13)
[2021-04-12] MEDS ORDERED: SUBLIMAZE 100 MCG/2 ML ONE (13:13)
[2021-04-12 15:21] VITALS: BP 129/75; PULSE 71; O2SAT 98
--- NOTE | 2021-04-13 10:41 | OP ---
SURGERY DATE/TIME: 04/12/2021 1340 PREOPERATIVE DIAGNOSIS: Enlarging right neck cyst or nodule. POSTOPERATIVE DIAGNOSIS: Right neck cyst. PROCEDURE: Excisional biopsy right neck cyst (approximately 2.5 cm with margins) with intermediate closure. SURGEON: Dr. Jayy Blakely. MANAGER OF COMMUNITY RELATIONS: Yung Sierra, Medical Student III. ANESTHESIA: General. ESTIMATED BLOOD LOSS: Minimal. INDICATIONS: As noted above. Risks and benefits explained in detail and not limited to and consent obtained. DESCRIPTION OF PROCEDURE AND FINDINGS: The patient is taken to the operating room. General anesthesia induced. The site had been confirmed and marked in the preoperative holding area. His neck is prepped and draped in the usual sterile fashion after official time out and no disagreement with the planned procedure. Under the bright OR light there appeared to be a small pit up in the crease at the nodule or cyst more caudal. In spindle-shaped fashion including the pit, dissection carried down to normal appearing subcutaneous tissue circumferentially around this area dissecting off the deep underlying normal subcutaneous tissue with the margins and the reaction around it, about 2.5 cm passed off for pathology. The wound appeared to be clean enough to warrant closure. The wound was irrigated out. Subcu closed with 3-0 Vicryl. Skin closed with 4-0 Vicryl running subcuticular fashion. 0.25% Marcaine local had been injected along the area at the beginning of the procedure. There were no immediate complications. Steri-Strips and sterile dressing applied. Findings discussed with the family out in the waiting area.
== END 2021-04-12 15:30 | disposition home or self-care (01) ==
LOC: SDC 11:09
PROVIDERS: ATTEND Surgery
DX: L72.0 Epidermal cyst (principal); E11.9 Type 2 diabetes mellitus without complications; Z79.899 Other long term (current) drug therapy
CPT/HCPCS: 82947; 88304; J1100; J1885; J2405; J2704; J3010

== ENCOUNTER 2021-05-26 13:20 | Emergency (ER) | payer MEDICARE ==
[2021-05-26] MEDS ORDERED: DECADRON 10MG INJ. PO ONE (14:11)
--- NOTE | 2021-05-26 14:19 | ERPHSYRPT ---
- History of Present Illness Time Seen by Provider: 05/26/21 13:30 Source: patient Exam Limitations: no limitations Patient Subjective Stated Complaint: pt here for cough, sob, pt was told hes covid test was positive today. Triage Nursing Assessment: pt alert, has dry cough, resp easy, face mask in place, skin w/d/p, Physician History: Patient is a 46-year-old male presents to our ED via EMS for evaluation of cough and mild shortness of breath. No chest pain. Patient states symptoms have been ongoing for the past 2 to 3 days. Patient had a Covid test that resulted positive today. No fever. No nausea or vomiting. No diaphoresis. No rash. No diarrhea. Symptoms are mild to moderate in intensity. No specific worsening or improving factors. Patient has no other complaints. Timing/Duration: yesterday Severity: moderate Modifying Factors: Improves With: nothing Associated Symptoms: denies symptoms, No vomiting, No abdominal pain, No shortness of breath, No heartburn, No chills, No chest pain, No fever, No malaise, No rash, No syncope, No seizure, No weakness Allergies/Adverse Reactions: No Known Drug Allergies Allergy (Verified 05/26/21 13:22) Home Medications: Armodafinil [Nuvigil] 250 mg PO DAILY 11/22/16 [History] Spironolactone [Aldactone] 50 mg PO BID 11/22/16 [History] Torsemide [Demadex] 40 mg PO BID 11/22/16 [History] Allopurinol [Zyloprim] 400 mg PO DAILY 04/03/18 [History] Carvedilol [Coreg] 37.5 mg PO BID 04/03/18 [History] Doxazosin Mesylate 4 mg PO DAILY 04/05/19 [History] Probenecid 500 mg PO BID 04/05/19 [History] Glimepiride 4 mg [Amaryl 4 mg] 4 mg PO BID 10/15/20 [History] Insulin Aspart [NovoLOG Insulin] 30 unit SQ TID 10/15/20 [History] Potassium Chloride 10 Meq Tab* [Klor Con 10 MEQ] 10 meq PO BID 10/15/20 [History] Albuterol Common Canister [Ventolin Common Canister] 2 puff IH [id number] PRN 04/06/21 [History] Dulaglutide [Trulicity] 1.5 mg SQ WEEKLY 04/06/21 [History] Fluticasone/Salmeterol [Advair Hfa Common canister*] 2 puff IH BIDRT 04/06/21 [History] Insulin Glargine,Hum.rec.anlog [Tatiana Rodriguez] 40 unit SQ BID 04/06/21 [History] Aspirin EC 81 mg [Ecotrin 81 mg] 81 mg PO DAILY 04/12/21 [History] Hx Tetanus, Diphtheria Vaccination/Date Given: No Hx Influenza Vaccination/Date Given: No Hx Pneumococcal Vaccination/Date Given: No Immunizations Up to Date: Yes Travel Risk - International Travel Have you traveled outside of the country in past 3 weeks: No - Coronavirus Screening Are you exhibiting any of the following symptoms?: Yes Symptoms: Cough: New Onset, Shortness of Breath, Headaches/Body Aches/Fatigue Close contact with a COVID-19 positive Pt in past 14-21 Days: Yes - Vaccine Status Have you recieved a Covid-19 vaccination: No - Review of Systems Constitutional: No Symptoms, No Fever, No Chills Eyes: No Symptoms Ears, Nose, & Throat: No Symptoms Respiratory: No Symptoms, No Cough, No Dyspnea Cardiac: No Symptoms, No Chest Pain, No Edema, No Syncope Abdominal/Gastrointestinal: No Symptoms, No Abdominal Pain, No Nausea, No Vomiting, No Diarrhea Genitourinary Symptoms: No Symptoms, No Dysuria Musculoskeletal: No Symptoms, No Back Pain, No Neck Pain Skin: No Symptoms, No Rash Neurological: No Symptoms, No Dizziness, No Focal Weakness, No Sensory Changes Psychological: No Symptoms Endocrine: No Symptoms Hematologic/Lymphatic: No Symptoms Immunological/Allergic: No Symptoms All Other Systems: Reviewed and Negative - Past Medical History Pertinent Past Medical History: Yes Neurological History: No Pertinent History ENT History: No Pertinent History Cardiac History: Hypertension Respiratory History: Asthma, Bronchitis, COPD Endocrine Medical History: Diabetes Type II Musculoskeletal History: Arthritis GI Medical History: No Pertinent History History: Renal Disease Psycho-Social History: No Pertinent History Male Reproductive Disorders: No Pertinent History Other Medical History: Stage 4 kidney disease,narcalepsy,sleep apnea-cpap - Past Surgical History Past Surgical History: Yes Neuro Surgical History: No Pertinent History Cardiac: Cardiac Catheterization Respiratory: No Pertinent History Gastrointestinal: No Pertinent History Genitourinary: No Pertinent History Musculoskeletal: Other Male Surgical History: No Pertinent History Other Surgical History: recent removal of toe nail, knee scope. - Social History Smoking Status: Former smoker Exposure to second hand smoke: No Alcohol Use: None Drug Use: none Patient Lives Alone: No Significant Family History: heart disease, hypertension - Nursing Vital Signs Nursing Vital Signs: Initial Vital Signs Temperature 96.8 F 05/26/21 13:27 Pulse Rate 75 05/26/21 13:27 Respiratory Rate 18 05/26/21 13:27 Blood Pressure 108/81 05/26/21 13:27 O2 Sat by Pulse Oximetry 95 05/26/21 13:27 Pain Scale Pain Intensity 6 - Physical Exam General Appearance: no apparent distress, alert Eye Exam: PERRL/EOMI, eyes nml inspection Ears, Nose, Throat Exam: normal ENT inspection, TMs normal, pharynx normal, moist mucous membranes Neck Exam: normal inspection, non-tender, supple, full range of motion Respiratory Exam: normal breath sounds, lungs clear, airway intact, No respiratory distress Cardiovascular Exam: regular rate/rhythm, normal heart sounds, normal peripheral pulses Gastrointestinal/Abdomen Exam: soft, normal bowel sounds, No tenderness, No mass Back Exam: normal inspection, normal range of motion, No CVA tenderness, No vertebral tenderness Extremity Exam: normal inspection, normal range of motion, pelvis stable Neurologic Exam: alert, oriented x 3, cooperative, normal mood/affect, nml cerebellar function, nml station & gait, sensation nml, No motor deficits Skin Exam: normal color, warm, dry, No rash Lymphatic Exam: No adenopathy SpO2 Interpretation: normal SpO2: 95 O2 Delivery: Room Air - Course Nursing assessment & vital signs reviewed: Yes EKG Interpreted by Me: RATE (74), Sinus Rhythm, NORMAL AXIS, NORMAL INTERVALS - Radiology Exams Chest X-ray Interpretation: Teleradiologist Report (Chest x-ray reveals new subtle hazy bibasilar interstitial alveolar opacities. Remaining heart upper lungs and bony thorax are unremarkable.) Ordered Tests: Active Orders 24 hr Category Date Time Status EKG-ER Only STAT Care 05/26/21 15:23 Active CHEST 1 VIEW (PORTABLE) Stat Exams 05/26/21 14:11 Completed Medication Summary Discontinued Medications Generic Name Dose Route Start Last Admin Trade Name Uzma PRN Reason Stop Dose Admin Dexamethasone Sodium Phosphate 8 mg 05/26/21 14:11 05/26/21 14:32 Dexamethasone Sod Phosphate 10 Mg/Ml PO 05/26/21 14:12 8 mg STAT ONE Administration Dexamethasone Sodium Phosphate Confirm 05/26/21 14:31 Dexamethasone Sod Phosphate 10 Mg/Ml Administered 05/26/21 14:32 Dose 10 mg .ROUTE .STK-MED ONE - Progress Progress: improved Progress Note: X-ray reveals subtle hazy bibasilar interstitial alveolar opacities. Patient ambulated in our ED. O2 sats remained within normal limits during ambulation. Patient is Covid positive. It is likely this x-ray findings are Covid pneumonia. However we will cover patient with a Z-Davis to see if this serves any benefit. Patient received a dose of Decadron in our ED. He agrees to follow- up with his primary care doctor within 48 hours for evaluation. He voices no other complaints concerns at this time states he is ready for discharge. Portions of this note were created with voice recognition technology. There may be grammatical, spelling, punctuation or sound alike errors 05/26/21 15:12 EKG normal sinus rhythm no acute or ischemic changes observed. 05/26/21 15:27 Counseled pt/family regarding: diagnosis, need for follow-up, rad results - Departure Departure Disposition: Home Clinical Impression: SARS-CoV-2 positive, Pneumonia Condition: Stable Critical Care Time: No Referrals: ROSAS HAMMOND MD [Primary Care Provider] - Follow up/PCP as directed Instructions: Cough, Adult (DC) Prescriptions: Azithromycin 250 mg [Zithromax 250 MG TABLET] 250 mg PO ZPACK #6 tablet
[2021-05-26] MEDS ORDERED: DECADRON 10MG INJ. ONE (14:31)
--- NOTE | 2021-05-26 14:33 | XRAY ---
Indication: Short of breath 1 week. Positive Covid 19. Comparison: October 15, 2020. Portable chest demonstrates new subtle hazy bibasilar interstitial alveolar opacities. Remaining heart, upper lungs, and bony thorax unremarkable.
[2021-05-26 15:27] VITALS: BP 108/62; PULSE 76
[2021-05-26 15:28] VITALS: O2SAT 95
== END 2021-05-26 15:32 | disposition home or self-care (01) ==
LOC: ED 13:20
DX: J12.89 Other viral pneumonia (principal)
CPT/HCPCS: 71045; 93005; 99284; J1100

== ENCOUNTER 2022-01-19 20:18 | Emergency (ER) | payer MEDICARE ==
--- NOTE | 2022-01-19 20:40 | ERPHSYRPT ---
- History of Present Illness Time Seen by Provider: 01/19/22 20:39 Source: patient, EMS Exam Limitations: no limitations Patient Subjective Stated Complaint: pt states he hasnt been feeling well and his blood pressure was running low at home. states he started a new medications today at 1300- olmesartan 5mg, and has had some sweating, headache, and not feeling well since. states when he checked his bp at home it was lower than it usually is but can not remember reading Triage Nursing Assessment: pt alert and oriented, answers questions approp. pt arrive per ambulance and transfers to stretcher per self. respiraitons nonlabored. skin warm and dry. pupils equal and reactive. bilat uppe and lower ext strength equal and wnl/ Physician History: This is a 46-year-old morbidly obese white male who is a patient of Dr. Marks, Dr. Adorno (cardiology), and Dr. Vargas (nephrology) who has a history of hypertension and was started on a new medication today called olmesartan 5 mg. He is taken 2 doses today and the last dose was approximately 6 PM. He states that he been feeling kind of dizzy, sweaty and has a headache. He states his blood pressures have been running low at home. Patient was brought to the emergency department by EMS. Patient denies shortness of breath. He denies chest pain. Patient has a history of morbid obesity, asthma, COPD, diabetes, hypertension, stage IV kidney disease, narcolepsy and sleep apnea with a CPAP machine at night. He denies fever and cough. Other medications that could lower his blood pressure include spironolactone, torsemide and Coreg. Timing/Duration: today Severity: moderate Associated Symptoms: headaches, weakness, No abdominal pain, No shortness of breath, No chest pain Allergies/Adverse Reactions: No Known Drug Allergies Allergy (Verified 05/26/21 13:22) Home Medications: Spironolactone [Aldactone] 50 mg PO BID 11/22/16 [History] Torsemide [Demadex] 40 mg PO BID 11/22/16 [History] armodafiniL [Nuvigil] 250 mg PO DAILY 11/22/16 [History] allopurinoL [Zyloprim] 400 mg PO DAILY 04/03/18 [History] carvediloL [Coreg] 37.5 mg PO BID 04/03/18 [History] Probenecid 500 mg PO BID 04/05/19 [History] Glimepiride 4 mg [Amaryl 4 mg] 4 mg PO BID 10/15/20 [History] Insulin Aspart [NovoLOG Insulin] 40 unit SQ TID 10/15/20 [History] Potassium Chloride Tab* [Klor Con] 10 meq PO BID 10/15/20 [History] Albuterol Common Canister [Ventolin Common Canister] 2 puff IH Q4HPRN PRN 04/06/21 [History] Dulaglutide [Trulicity] 3.5 mg SQ WEEKLY 04/06/21 [History] Fluticasone/Salmeterol [Advair Hfa Common canister*] 2 puff IH BIDRT 04/06/21 [History] Insulin Glargine,Hum.rec.anlog [Toujeo Solostar] 70 unit SQ BID 04/06/21 [History] Aspirin EC 81 mg [Ecotrin 81 mg] 81 mg PO DAILY 04/12/21 [History] Olmesartan Medoxomil 10 mg PO DAILY 01/19/22 [History] Hx Tetanus, Diphtheria Vaccination/Date Given: No Hx Influenza Vaccination/Date Given: No Hx Pneumococcal Vaccination/Date Given: No Immunizations Up to Date: No Travel Risk - International Travel Have you traveled outside of the country in past 3 weeks: No - Coronavirus Screening Are you exhibiting any of the following symptoms?: No Close contact with a COVID-19 positive Pt in past 14-21 Days: No - Vaccine Status Have you recieved a Covid-19 vaccination: No Multimedia Manager: Moderna - Vaccination Dates Date of 2cond Vaccination (if applicable): 2020 - Review of Systems Constitutional: Weakness Eyes: No Symptoms Ears, Nose, & Throat: No Symptoms Respiratory: No Symptoms Cardiac: No Symptoms Abdominal/Gastrointestinal: No Symptoms Genitourinary Symptoms: No Symptoms Musculoskeletal: No Symptoms Skin: No Symptoms Neurological: Dizziness, Headache Psychological: No Symptoms Endocrine: Excessive Sweating Hematologic/Lymphatic: No Symptoms Immunological/Allergic: No Symptoms All Other Systems: Reviewed and Negative - Past Medical History Pertinent Past Medical History: Yes Neurological History: No Pertinent History ENT History: No Pertinent History Cardiac History: Hypertension Respiratory History: Asthma, Bronchitis, COPD Endocrine Medical History: Diabetes Type II Musculoskeletal History: Arthritis GI Medical History: No Pertinent History History: Renal Disease Psycho-Social History: No Pertinent History Male Reproductive Disorders: No Pertinent History Other Medical History: Stage 4 kidney disease,narcolepsy,sleep apnea-cpap - Past Surgical History Past Surgical History: Yes Neuro Surgical History: No Pertinent History Cardiac: Cardiac Catheterization Respiratory: No Pertinent History Gastrointestinal: No Pertinent History Genitourinary: No Pertinent History Musculoskeletal: Other Male Surgical History: No Pertinent History Other Surgical History: removal of toe nail, knee scope. - Social History Smoking Status: Former smoker Exposure to second hand smoke: No Alcohol Use: None Drug Use: none Patient Lives Alone: No Significant Family History: heart disease, hypertension - Nursing Vital Signs Nursing Vital Signs: Initial Vital Signs Temperature 97.9 F 01/19/22 20:20 Pulse Rate 89 01/19/22 20:20 Respiratory Rate 18 01/19/22 20:20 Blood Pressure 104/68 01/19/22 20:20 O2 Sat by Pulse Oximetry 95 01/19/22 20:20 Pain Scale Pain Intensity 0 - Physical Exam General Appearance: no apparent distress, alert, obese Eye Exam: PERRL/EOMI, eyes nml inspection Ears, Nose, Throat Exam: normal ENT inspection, moist mucous membranes Neck Exam: normal inspection, non-tender, supple, full range of motion Respiratory Exam: normal breath sounds, lungs clear, airway intact, No chest tenderness, No respiratory distress Cardiovascular Exam: regular rate/rhythm, normal heart sounds, normal peripheral pulses Gastrointestinal/Abdomen Exam: soft, normal bowel sounds, No tenderness Rectal Exam: not done Back Exam: normal inspection, normal range of motion, No CVA tenderness, No vertebral tenderness Extremity Exam: normal inspection, normal range of motion, pelvis stable Neurologic Exam: alert, oriented x 3, cooperative, manager r d II-XII nml as tested, normal mood/affect, nml cerebellar function, nml station & gait, sensation nml Skin Exam: normal color, warm, dry Lymphatic Exam: No adenopathy SpO2 Interpretation: normal SpO2: 95 O2 Delivery: Room Air - Course Nursing assessment & vital signs reviewed: Yes Ordered Tests: Active Orders 24 hr Category Date Time Status EKG-ER Only STAT Care 01/19/22 20:58 Active IV Insertion STAT Care 01/19/22 20:58 Active Pulse Oximetry (ED) STAT Care 01/19/22 20:58 Active CBC W DIFF Stat Lab 01/19/22 21:18 Completed CMP Stat Lab 01/19/22 21:18 Completed MAGNESIUM Stat Lab 01/19/22 21:18 Completed TROPONIN Q3H Lab 01/19/22 21:18 Completed TROPONIN Q3H Lab 01/20/22 00:00 Ordered TROPONIN Q3H Lab 01/20/22 03:00 Ordered TROPONIN Q3H Lab 01/20/22 06:00 Ordered TROPONIN Q3H Lab 01/20/22 09:00 Ordered Medication Summary Generic Name Dose Route Start Last Admin Trade Name Freq PRN Reason Stop Dose Admin Sodium Chloride 1,000 mls @ 100 mls/hr 01/19/22 21:00 01/19/22 21:33 Sodium Chloride 0.9% 1000 Ml IV 02/18/22 20:59 100 mls/hr .Q10H STEVAN Administration Lab/Rad Data: Laboratory Result Diagrams 01/19/22 21:18 01/19/22 21:18 Laboratory Results 01/19/22 01/19/22 01/19/22 Range/Units 21:18 21:18 21:18 WBC 12.1 H (4.0-10.5) x10^3/uL RBC 5.26 (4.1-5.6) x10^6/uL Hgb 15.2 (12.5-18.0) g/dL Hct 46.2 (42-50) % MCV 87.8 (78-100) fL MCH 28.9 (26-32) pg MCHC 32.9 (32-36) g/dL RDW 14.3 H (11.5-14.0) % Plt Count 200 (150-450) x10^3/uL MPV 10.5 (7.5-11.0) fL Gran % 74.3 H (36.0-66.0) % Immature Gran % (Auto) 0.7 H (0.00-0.4) % Nucleat RBC Rel Count 0.0 (0.00-0.1) % Eos # (Auto) 0.21 (0-0.5) x10^3/uL Immature Gran # (Auto) 0.08 H (0.00-0.03) x10^3u/L Absolute Lymphs (auto) 2.04 (1.0-4.6) x10^3/uL Absolute Monos (auto) 0.70 (0.0-1.3) x10^3/uL Absolute Nucleated RBC 0.00 (0.00-0.01) x10^3u/L Lymphocytes % 16.8 L (24.0-44.0) % Monocytes % 5.8 (0.0-12.0) % Eosinophils % 1.7 (0.00-5.0) % Basophils % 0.7 (0.0-0.4) % Absolute Granulocytes 9.02 H (1.4-6.9) x10^3/uL Basophils # 0.08 (0-0.4) x10^3/uL Sodium 134 L (137-145) mmol/L Potassium 4.0 (3.5-5.1) mmol/L Chloride 94 L (98-107) mmol/L Carbon Dioxide 31 H (22-30) mmol/L Anion Gap 12.8 (5-15) MEQ/L BUN 44 H (9-20) mg/dL Creatinine 2.45 H (0.66-1.25) mg/dL Estimated GFR 30.4 ML/MIN Glucose 266 H (74-106) mg/dL Calcium 9.4 (8.4-10.2) mg/dL Magnesium 1.8 (1.6-2.3) mg/dL Total Bilirubin 0.50 (0.2-1.3) mg/dL AST 41 (17-59) U/L ALT 43 (0-50) U/L Alkaline Phosphatase 129 H (38-126) U/L Troponin I < 0.012 (0.000-0.034) ng/mL Serum Total Protein 7.3 (6.3-8.2) g/dL Albumin 3.7 (3.5-5.0) g/dL Influenza Type A Ag (NEGATIVE) Influenza Type B Ag (NEGATIVE) RSV (PCR) (Negative) SARS-CoV-2 (PCR) (NEGATIVE) 01/19/22 Range/Units 20:22 WBC (4.0-10.5) x10^3/uL RBC (4.1-5.6) x10^6/uL Hgb (12.5-18.0) g/dL Hct (42-50) % MCV (78-100) fL MCH (26-32) pg MCHC (32-36) g/dL RDW (11.5-14.0) % Plt Count (150-450) x10^3/uL MPV (7.5-11.0) fL Gran % (36.0-66.0) % Immature Gran % (Auto) (0.00-0.4) % Nucleat RBC Rel Count (0.00-0.1) % Eos # (Auto) (0-0.5) x10^3/uL Immature Gran # (Auto) (0.00-0.03) x10^3u/L Absolute Lymphs (auto) (1.0-4.6) x10^3/uL Absolute Monos (auto) (0.0-1.3) x10^3/uL Absolute Nucleated RBC (0.00-0.01) x10^3u/L Lymphocytes % (24.0-44.0) % Monocytes % (0.0-12.0) % Eosinophils % (0.00-5.0) % Basophils % (0.0-0.4) % Absolute Granulocytes (1.4-6.9) x10^3/uL Basophils # (0-0.4) x10^3/uL Sodium (137-145) mmol/L Potassium (3.5-5.1) mmol/L Chloride (98-107) mmol/L Carbon Dioxide (22-30) mmol/L Anion Gap (5-15) MEQ/L BUN (9-20) mg/dL Creatinine (0.66-1.25) mg/dL Estimated GFR ML/MIN Glucose (74-106) mg/dL Calcium (8.4-10.2) mg/dL Magnesium (1.6-2.3) mg/dL Total Bilirubin (0.2-1.3) mg/dL AST (17-59) U/L ALT (0-50) U/L Alkaline Phosphatase (38-126) U/L Troponin I (0.000-0.034) ng/mL Serum Total Protein (6.3-8.2) g/dL Albumin (3.5-5.0) g/dL Influenza Type A Ag NEGATIVE (NEGATIVE) Influenza Type B Ag NEGATIVE (NEGATIVE) RSV (PCR) NEGATIVE (Negative) SARS-CoV-2 (PCR) NEGATIVE (NEGATIVE) - Progress Progress: improved, re-examined Progress Note: 01/19/22 23:26 Medical decision making: This patient is on several medications that can cause hypotension. He is on 2 diuretics that I think have ultimately made him dehydrated and has caused some acute renal insufficiency. In addition to the 2 diuretics patient is on 2 other medications specifically for treatment of high blood pressure. There was a new 1 started today, olmesartan. This is a longer acting medication. I think the patient's hypotension has to do with a combination of multiple antihypertension medication side effects as well as dehydration. We will rehydrate him gently and have him stop his antihypertensive medication as well as his diuretic medication. He will take his blood pressure prior to calling his prescribing physician. And he will make sure that all his physicians are aware which medications he is taking. He will follow the directions of his prescribing physician tomorrow. Counseled pt/family regarding: lab results, diagnosis, need for follow-up - Departure Departure Disposition: Home Clinical Impression: Medication side effects, Dehydration, Acute renal insufficiency Condition: Stable Critical Care Time: No Referrals: ROSAS MARKS MD [Primary Care Provider] - Follow up/PCP as directed Additional Instructions: Stop your carvedilol, olmesartan, torsemide and spironolactone. Drink plenty of fluids. Take your blood pressure measurement tomorrow morning prior to calling your prescribing physicians. Make all of the physicians aware of what medic ations you are taking for your blood pressure and the diuretics. Do not restart those medications until you have discussed the management with your physicians.
[2022-01-19] MEDS ORDERED: Sodium Chloride 0.9% 1000 ML 1,000 ML IV SCH (21:00)
[2022-01-19 21:24] LABS: Absolute Neutrophil Ct (ANC) 9.02 x10^3/uL (1.4-6.9); Basophil (Absolute #) 0.08 x10^3/uL (0-0.4); Eosinophil % 1.7 % (0.00-5.0); Eosinophil (Absolute #) 0.21 x10^3/uL (0-0.5); Hematocrit 46.2 % (42-50); Hemoglobin 15.2 g/dL (12.5-18.0); Lymphocyte (Absolute #) 2.04 x10^3/uL (1.0-4.6); Lymphocytes % 16.8 % (24.0-44.0); Mean Cell Volume 87.8 fL (78-100); Mean Corpuscular Hemoglobin 28.9 pg (26-32); Mean Corpuscular Hgb Concent. 32.9 g/dL (32-36); Mean Platelet Volume 10.5 fL (7.5-11.0); Monocytes % 5.8 % (0.0-12.0); Neutrophil % 74.3 % (36.0-66.0); Platelet Count 200 x10^3/uL (150-450); Red Blood Count 5.26 x10^6/uL (4.1-5.6); Red Cell Distribution Width 14.3 % (11.5-14.0); White Blood Count 12.1 x10^3/uL (4.0-10.5)
[2022-01-19] MEDS ORDERED: Sodium Chloride 0.9% 1000 ML 1,000 ML ONE (21:31)
[2022-01-19 21:37] LABS: ALBUMIN 3.7 g/dL (3.5-5.0); ANION GAP 12.8 MEQ/L (5-15); BILIRUBIN,TOTAL 0.5 mg/dL (0.2-1.3); Calcium 9.4 mg/dL (8.4-10.2); Creatinine 1 2.45 mg/dL (0.66-1.25); EST GLOMERULAR FILTRATION RATE 30.4 ML/MIN; MAGNESIUM 1.8 mg/dL (1.6-2.3); Total Protein 7.3 g/dL (6.3-8.2)
[2022-01-19 22:03] LABS: INFLUENZA A NEGATIVE (NEGATIVE); INFLUENZA B NEGATIVE (NEGATIVE); RESPIRATORY SYNCTIAL VIRUS NEGATIVE (Negative); SARS-CoV-2 Xpert Express NEGATIVE (NEGATIVE)
[2022-01-19 23:56] VITALS: PULSE 78
[2022-01-20 00:31] VITALS: BP 112/69; O2SAT 97
== END 2022-01-20 00:43 | disposition home or self-care (01) ==
LOC: ED 20:18
DX: E86.0 Dehydration (principal); N28.9 Disorder of kidney and ureter, unspecified; T46.5X5A Adverse effect of other antihypertensive drugs, initial encounter; T50.1X5A Adverse effect of loop [high-ceiling] diuretics, initial encounter; T50.0X5A Adverse effect of mineralocorticoids and their antagonists, initial encounter; T44.7X5A Adverse effect of beta-adrenoreceptor antagonists, initial encounter; R42 Dizziness and giddiness; R51.9 Headache, unspecified; J44.9 Chronic obstructive pulmonary disease, unspecified; I12.9 Hypertensive chronic kidney disease with stage 1 through stage 4 chronic kidney disease, or unspecified chronic kidney disease; N18.4 Chronic kidney disease, stage 4 (severe); E11.22 Type 2 diabetes mellitus with diabetic chronic kidney disease; Z79.4 Long term (current) use of insulin; Z79.899 Other long term (current) drug therapy; Z20.828 Contact with and (suspected) exposure to other viral communicable diseases
CPT/HCPCS: 0241U; 36000; 36415; 80053; 83735; 84484; 85025; 93005; 94760; 99284

== ENCOUNTER 2022-10-23 17:37 | Observation (INO) | payer MEDICARE ==
--- NOTE | 2022-10-23 17:40 | ERPHSYRPT ---
- History of Present Illness Source: patient Exam Limitations: no limitations Timing/Duration: today Severity: moderate Associated Symptoms: shortness of breath, headaches, weakness, No abdominal pain, No chest pain Hx Tetanus, Diphtheria Vaccination/Date Given: No Hx Influenza Vaccination/Date Given: No Hx Pneumococcal Vaccination/Date Given: No <SUZIE WOLF - Last Filed: 10/23/22 19:07> <GABRIEL ADAMS - Last Filed: 10/24/22 01:46> - History of Present Illness Time Seen by Provider: 10/23/22 17:40 Physician History: This is a morbidly obese 47-year-old white male patient of nurse practitioner Olu, 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 He presents with some shortness of breath as well as hypotension as well as a headache. There is been some recent changes to his medication including changes to his allopurinol and antidepressant medication. He is on several medications to treat high blood pressure. Today, they were walking around the store and he felt the above- stated symptoms. He presents emergency department with blood pressure in the mid to high 80s systolically. Patient has a history of gout, hypertension, insulin-dependent diabetes, stage IV kidney disease, narcolepsy, sleep apnea, asthma and COPD. He denies chest pain at this time. (SUZIE WOLF) Allergies/Adverse Reactions: No Known Drug Allergies Allergy (Verified 10/23/22 17:57) Home Medications: Spironolactone [Aldactone] 50 mg PO BID 11/22/16 [History] Torsemide [Demadex] 40 mg PO BID 11/22/16 [History] allopurinoL [Zyloprim] 300 mg PO BID 04/03/18 [History] carvediloL [Coreg] 25 mg PO BID 04/03/18 [History] Probenecid 500 mg PO BID 04/05/19 [History] Potassium Chloride Tab* [Klor Con] 10 meq PO BID 10/15/20 [History] Albuterol Common Canister [Ventolin Common Canister] 2 puff IH Q4HPRN PRN 04/06/21 [History] Dulaglutide [Trulicity] 3.5 mg SQ WEEKLY 04/06/21 [History] Fluticasone/Salmeterol [Advair Hfa Common canister*] 2 puff IH BIDRT 04/06/21 [History] Insulin Glargine,Hum.rec.anlog [Tatiana Rodriguez] 40 unit SQ TID 04/06/21 [History] Aspirin EC 81 mg [Ecotrin 81 mg] 81 mg PO DAILY 04/12/21 [History] Olmesartan Medoxomil 10 mg PO DAILY 01/19/22 [History] Travel Risk - International Travel Have you traveled outside of the country in past 3 weeks: No - Coronavirus Screening Are you exhibiting any of the following symptoms?: No Close contact with a COVID-19 positive Pt in past 14-21 Days: No - Vaccine Status Have you recieved a Covid-19 vaccination: No Catalyst Unit Operator: Moderna - Vaccination Dates Date of 2cond Vaccination (if applicable): 2020 <SUZIE WOLF - Last Filed: 10/23/22 19:07> - Review of Systems Constitutional: Weakness Eyes: No Symptoms Ears, Nose, & Throat: No Symptoms Respiratory: Dyspnea on Exertion (SUT[place]) Cardiac: No Symptoms Abdominal/Gastrointestinal: No Symptoms Genitourinary Symptoms: No Symptoms Musculoskeletal: No Symptoms Skin: No Symptoms Neurological: Dizziness, Headache Psychological: No Symptoms Endocrine: No Symptoms Hematologic/Lymphatic: No Symptoms Immunological/Allergic: No Symptoms All Other Systems: Reviewed and Negative <SUZIE WOLF - Last Filed: 10/23/22 19:07> - Past Medical History Pertinent Past Medical History: Yes Neurological History: No Pertinent History ENT History: No Pertinent History Cardiac History: Hypertension Respiratory History: Asthma, Bronchitis, COPD Endocrine Medical History: Diabetes Type II Musculoskeletal History: Arthritis GI Medical History: No Pertinent History History: Renal Disease Psycho-Social History: No Pertinent History Male Reproductive Disorders: No Pertinent History Other Medical History: Stage 4 kidney disease,narcolepsy,sleep apnea-cpap - Past Surgical History Past Surgical History: Yes Neuro Surgical History: No Pertinent History Cardiac: Cardiac Catheterization Respiratory: No Pertinent History Gastrointestinal: No Pertinent History Genitourinary: No Pertinent History Musculoskeletal: Other Male Surgical History: No Pertinent History Other Surgical History: removal of toe nail, knee scope. - Social History Smoking Status: Former smoker Exposure to second hand smoke: No Alcohol Use: None Drug Use: none Patient Lives Alone: No Significant Family History: heart disease, hypertension <SUZIE WOLF - Last Filed: 10/23/22 19:07> - Physical Exam General Appearance: no apparent distress, alert, anxiety, obese Eye Exam: PERRL/EOMI, eyes nml inspection Ears, Nose, Throat Exam: normal ENT inspection, moist mucous membranes Neck Exam: normal inspection, non-tender, supple, full range of motion Respiratory Exam: normal breath sounds, lungs clear, airway intact, No chest tenderness Cardiovascular Exam: regular rate/rhythm, normal heart sounds, normal peripheral pulses Gastrointestinal/Abdomen Exam: soft, normal bowel sounds, No tenderness Rectal Exam: not done Back Exam: normal inspection, normal range of motion, No CVA tenderness, No vertebral tenderness Extremity Exam: normal inspection, normal range of motion, pelvis stable Neurologic Exam: alert, oriented x 3, cooperative, computer assistant II-XII nml as tested, normal mood/affect, nml cerebellar function, nml station & gait, sensation nml Skin Exam: normal color, warm, dry Lymphatic Exam: No adenopathy SpO2 Interpretation: normal O2 Delivery: Room Air <SUZIE WOLF - Last Filed: 10/23/22 19:07> - Nursing Vital Signs Nursing Vital Signs: Initial Vital Signs Temperature 97.3 F 10/23/22 17:55 Pulse Rate 85 10/23/22 17:55 Respiratory Rate 18 10/23/22 17:55 Blood Pressure 99/61 10/23/22 17:55 O2 Sat by Pulse Oximetry 96 10/23/22 17:55 Pain Scale Pain Intensity 5 - Course Nursing assessment & vital signs reviewed: Yes <SUZIE WOLF - Last Filed: 10/23/22 19:07> - Course EKG Interpreted by Me: RATE (85), Sinus Rhythm, NORMAL AXIS, NORMAL QRS, Non- specific ST Changes (No contiguous elevations ), Other (NC 265) - CT Exams Head CT Interpretation: Tele-radiologist Report, No/Intracranial Hemorrhag, Other (mild moderate paranasal inflammatory change consistent with acute sinusitis) <GABRIEL ADAMS - Last Filed: 10/24/22 01:46> Ordered Tests: Active Orders 24 hr Category Date Time Status 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 STAT Care 10/23/22 18:07 Completed Code Status Order ROUTINE Care 10/23/22 22:17 Active EKG-ER Only STAT Care 10/23/22 18:07 Completed IV Care Q6H Care 10/23/22 22:17 Active IV Insertion STAT Care 10/23/22 18:07 Completed POCT Glucose Check ACHS Care 10/23/22 22:[address] in Observation ROUTINE Care 10/23/22 22:17 Active Pulse Oximetry (ED) STAT Care 10/23/22 18:07 Completed Telemetry q6h Care 10/23/22 22:17 Active Heart-Healthy Diet Diet 10/24/22 Breakfast Active HEAD WITHOUT CONTRAST [CT] Stat Exams 10/23/22 18:34 Taken CBC W DIFF AM.LAB Lab 10/24/22 04:00 Ordered CBC W DIFF Stat Lab 10/23/22 18:47 Completed CMP AM.LAB Lab 10/24/22 04:00 Ordered CMP Stat Lab 10/23/22 18:47 Completed TROPONIN Q4H Lab 10/23/22 18:47 Completed TROPONIN Q4H Lab 10/23/22 22:01 Completed TROPONIN Q4H Lab 10/24/22 02:15 Ordered UA W/RFX UR CULTURE Stat Lab 10/23/22 19:08 Completed Medication Summary Generic Name Dose Route Start Last Admin Trade Name Freq PRN Reason Stop Dose Admin Albuterol Sulfate 2 puff 10/24/22 00:38 Albuterol Common Canister Inhaler IH 11/23/22 00:37 Q4H PRN PRN SHORTNESS OF BREATH/WHEEZING Allopurinol 300 mg 10/24/22 10:00 Allopurinol 300 Mg Tablet PO 11/23/22 09:59 BID STEVAN Carvedilol 3.125 mg 10/24/22 10:00 Carvedilol 3.125 Mg Tablet PO 11/23/22 09:59 BID STEVAN Enoxaparin Sodium 40 mg 10/24/22 10:00 Enoxaparin Sodium 40 Mg/0.4 Ml Syringe SQ 11/23/22 09:59 DAILY STEVAN Sodium Chloride 1,000 mls @ 100 mls/hr 10/23/22 22:17 10/23/22 23:27 Sodium Chloride 0.9% 1000 Ml IV 11/22/22 22:16 100 mls/hr .Q10H STEVAN Administration Insulin Human Lispro 40 unit 10/24/22 08:00 Insulin Lispro 1 Unit SQ 11/23/22 07:59 TIDWM STEVAN Insulin Human Lispro 0 unit 10/24/22 07:30 Insulin Lispro 1 Unit SQ 11/23/22 07:29 AC STEVAN Pantoprazole Sodium 40 mg 10/24/22 10:00 Pantoprazole 40 Mg Vial IV 11/23/22 09:59 Q24H10 STEVAN Fluticasone/Salmeterol 2 puff 10/24/22 07:00 Fluticasone/Salmeterol 230/21 Common Canister IH 11/23/22 06:59 BIDRT STEVAN Discontinued Medications Generic Name Dose Route Start Last Admin Trade Name Freq PRN Reason Stop Dose Admin Sodium Chloride 1,000 mls @ 100 mls/hr 10/23/22 18:15 10/23/22 18:42 Sodium Chloride 0.9% 1000 Ml IV 11/22/22 18:14 100 mls/hr .Q10H STEVAN Administration Sodium Chloride Confirm 10/23/22 18:38 Sodium Chloride 0.9% 1000 Ml Administered 10/23/22 18:39 Dose 1,000 mls @ ud .ROUTE .STK-MED ONE Insulin Human Lispro 0 unit 10/23/22 22:17 10/23/22 23:49 Insulin Lispro 1 Unit SQ 11/22/22 22:16 15 unit UD PRN Administration HYPERGLYCEMIA Insulin Human Lispro Confirm 10/23/22 23:47 Insulin Lispro 1 Unit Administered 10/23/22 23:48 Dose 15 unit .ROUTE .STK-MED ONE Lab/Rad Data: Laboratory Result Diagrams 10/23/22 18:47 10/23/22 18:47 Laboratory Results 10/23/22 10/23/22 10/23/22 Range/Units 22:01 19:08 18:47 WBC (4.0-10.5) x10^3/uL RBC (4.1-5.6) x10^6/uL Hgb (12.5-18.0) g/dL Hct (42-50) % MCV (78-100) fL MCH (26-32) pg MCHC (32-36) g/dL RDW (11.5-14.0) % Plt Count (150-450) x10^3/uL MPV (7.5-11.0) fL Gran % (36.0-66.0) % Immature Gran % (Auto) (0.00-0.4) % Nucleat RBC Rel Count (0.00-0.1) % Eos # (Auto) (0-0.5) x10^3/uL Immature Gran # (Auto) (0.00-0.03) x10^3u/L Absolute Lymphs (auto) (1.0-4.6) x10^3/uL Absolute Monos (auto) (0.0-1.3) x10^3/uL Absolute Nucleated RBC (0.00-0.01) x10^3u/L Lymphocytes % (24.0-44.0) % Monocytes % (0.0-12.0) % Eosinophils % (0.00-5.0) % Basophils % (0.0-0.4) % Absolute Granulocytes (1.4-6.9) x10^3/uL Basophils # (0-0.4) x10^3/uL Sodium (137-145) mmol/L Potassium (3.5-5.1) mmol/L Chloride (98-107) mmol/L Carbon Dioxide (22-30) mmol/L Anion Gap (5-15) MEQ/L BUN (9-20) mg/dL Creatinine (0.66-1.25) mg/dL Estimated GFR ML/MIN Glucose (74-106) mg/dL Calcium (8.4-10.2) mg/dL Total Bilirubin (0.2-1.3) mg/dL AST (17-59) U/L ALT (0-50) U/L Alkaline Phosphatase (38-126) U/L Troponin I < 0.012 (0.000-0.034) ng/mL Serum Total Protein (6.3-8.2) g/dL Albumin (3.5-5.0) g/dL Urine Color Yellow (Yellow) Urine Appearance Turbid A (Clear) Urine pH 5.0 (4.6-8.0) Ur Specific [place] 1.015 (1.005-1.030) Urine Protein 30 (Negative) Urine Glucose (UA) 500 A (Negative) mg/dL Urine Ketones Negative (Negative) Urine Blood Negative (Negative) Urine Nitrite Negative (Negative) Urine Bilirubin Negative (Negative) Urine Urobilinogen 0.2 (0.2) mg/dL Ur Leukocyte Esterase Negative (Negative) U Hyaline Cast (Auto) 0-2 (0-2) /LPF Urine Microscopic RBC 0-2 (0-5) /HPF Urine Microscopic WBC 0-2 (0-5) /HPF Ur Epithelial Cells None Seen (None Seen) /HPF Urine Bacteria None Seen (None Seen) /HPF Urine Culture Reflexed NO (NO) Influenza Type A Ag NEGATIVE (NEGATIVE) Influenza Type B Ag NEGATIVE (NEGATIVE) RSV (PCR) NEGATIVE (NEGATIVE) SARS-CoV-2 (PCR) NEGATIVE (NEGATIVE) 10/23/22 10/23/22 10/23/22 Range/Units 18:47 18:47 18:47 WBC 7.5 (4.0-10.5) x10^3/uL RBC 4.74 (4.1-5.6) x10^6/uL Hgb 13.9 (12.5-18.0) g/dL Hct 41.9 L (42-50) % MCV 88.4 (78-100) fL MCH 29.3 (26-32) pg MCHC 33.2 (32-36) g/dL RDW 14.2 H (11.5-14.0) % Plt Count 159 (150-450) x10^3/uL MPV 9.7 (7.5-11.0) fL Gran % 68.5 H (36.0-66.0) % Immature Gran % (Auto) 1.3 H (0.00-0.4) % Nucleat RBC Rel Count 0.0 (0.00-0.1) % Eos # (Auto) 0.15 (0-0.5) x10^3/uL Immature Gran # (Auto) 0.10 H (0.00-0.03) x10^3u/L Absolute Lymphs (auto) 1.48 (1.0-4.6) x10^3/uL Absolute Monos (auto) 0.60 (0.0-1.3) x10^3/uL Absolute Nucleated RBC 0.00 (0.00-0.01) x10^3u/L Lymphocytes % 19.7 L (24.0-44.0) % Monocytes % 8.0 (0.0-12.0) % Eosinophils % 2.0 (0.00-5.0) % Basophils % 0.5 (0.0-0.4) % Absolute Granulocytes 5.16 (1.4-6.9) x10^3/uL Basophils # 0.04 (0-0.4) x10^3/uL Sodium 136 L (137-145) mmol/L Potassium 4.2 (3.5-5.1) mmol/L Chloride 98 (98-107) mmol/L Carbon Dioxide 31 H (22-30) mmol/L Anion Gap 11.0 (5-15) MEQ/L BUN 29 H (9-20) mg/dL Creatinine 1.94 H (0.66-1.25) mg/dL Estimated GFR 39.6 ML/MIN Glucose 314 H (74-106) mg/dL Calcium 8.5 (8.4-10.2) mg/dL Total Bilirubin 0.80 (0.2-1.3) mg/dL AST 62 H (17-59) U/L ALT 57 H (0-50) U/L Alkaline Phosphatase 148 H (38-126) U/L Troponin I < 0.012 (0.000-0.034) ng/mL Serum Total Protein 6.4 (6.3-8.2) g/dL Albumin 3.5 (3.5-5.0) g/dL Urine Color (Yellow) Urine Appearance (Clear) Urine pH (4.6-8.0) Ur Specific [place] (1.005-1.030) Urine Protein (Negative) Urine Glucose (UA) (Negative) mg/dL Urine Ketones (Negative) Urine Blood (Negative) Urine Nitrite (Negative) Urine Bilirubin (Negative) Urine Urobilinogen (0.2) mg/dL Ur Leukocyte Esterase (Negative) U Hyaline Cast (Auto) (0-2) /LPF Urine Microscopic RBC (0-5) /HPF Urine Microscopic WBC (0-5) /HPF Ur Epithelial Cells (None Seen) /HPF Urine Bacteria (None Seen) /HPF Urine Culture Reflexed (NO) Influenza Type A Ag (NEGATIVE) Influenza Type B Ag (NEGATIVE) RSV (PCR) (NEGATIVE) SARS-CoV-2 (PCR) (NEGATIVE) - Progress Progress: improved Counseled pt/family regarding: lab results, diagnosis, need for follow-up, rad results <USZIE WOLF - Last Filed: 10/23/22 19:07> <GABRIEL ADAMS - Last Filed: 10/24/22 01:46> - Progress Progress Note: 10/23/22 19:07 Patient transferred her care to Dr. Adams at shift change. He will follow-up on pending studies and make final disposition. (SUZIE WOLF) 10/24/22 01:42 Lab results CBC wnl, Na 136, Cr 1.94 (1.6 baseline), Glu 314, AST/ALT 62/57, Troponin neg x 1 Patient bp improved, but still has MAP ranging from 65-75 His RIVER is improved Decision made to admit patient for hypoTN, CARLOS on CKD, transaminitis. Dr. Thapa agreed to accept for admission at 2152. (GABRIEL ADAMS) Medical Desision Making - Discussion of managment Care discussed with:: hospitalist Reviewed:: Test results, Need for additional workup Agreed on:: Treatment plan, place in obs Will see patient: in hospital - Diagnostic Testing Diagnostic test were ordered, analyzed, and reviewed by me: Yes Radiological Interpretation: Interpreted by me, Reviewed by me - Risk of complications The pt has a mod risk of morbidity or mortality based on: Need for prescription drug management The pt has a high risk of morbidity or mortality based on: Decision regarding hospitilization or escalation of hosp level of care <GABRIEL ADAMS - Last Filed: 10/24/22 01:46> - Departure Departure Disposition: Observation Critical Care Time: Yes Critical Care Time(excluding separately billable procedures): Critical 30-74 mins (40 minutes) <SUZIE WOLF - Last Filed: 10/23/22 19:07> - Departure Departure Disposition: Observation <GABRIEL ADAMS - Last Filed: 10/24/22 01:46> - Departure Clinical Impression: Hypotension, CARLOS (acute kidney injury), Transaminitis, Hyperglycemia due to type 2 diabetes mellitus Condition: Fair
[2022-10-23] MEDS ORDERED: Sodium Chloride 0.9% 1000 ML 1,000 ML IV SCH (18:15)
[2022-10-23] MEDS ORDERED: Sodium Chloride 0.9% 1000 ML 1,000 ML ONE (18:38)
[2022-10-23 18:50] LABS: Absolute Neutrophil Ct (ANC) 5.16 x10^3/uL (1.4-6.9); BASOPHIL % 0.5 % (0.0-0.4); Basophil (Absolute #) 0.04 x10^3/uL (0-0.4); Eosinophil (Absolute #) 0.15 x10^3/uL (0-0.5); Hematocrit 41.9 % (42-50); Hemoglobin 13.9 g/dL (12.5-18.0); IMMATURE GRAN % 1.3 % (0.00-0.4); Lymphocyte (Absolute #) 1.48 x10^3/uL (1.0-4.6); Lymphocytes % 19.7 % (24.0-44.0); Mean Cell Volume 88.4 fL (78-100); Mean Corpuscular Hemoglobin 29.3 pg (26-32); Mean Corpuscular Hgb Concent. 33.2 g/dL (32-36); Mean Platelet Volume 9.7 fL (7.5-11.0); Neutrophil % 68.5 % (36.0-66.0); Platelet Count 159 x10^3/uL (150-450); Red Blood Count 4.74 x10^6/uL (4.1-5.6); Red Cell Distribution Width 14.2 % (11.5-14.0); White Blood Count 7.5 x10^3/uL (4.0-10.5)
[2022-10-23 19:05] LABS: ALBUMIN 3.5 g/dL (3.5-5.0); BILIRUBIN,TOTAL 0.8 mg/dL (0.2-1.3); Calcium 8.5 mg/dL (8.4-10.2); Creatinine 1 1.94 mg/dL (0.66-1.25); EST GLOMERULAR FILTRATION RATE 39.6 ML/MIN; Potassium 4.2 mmol/L (3.5-5.1); Total Protein 6.4 g/dL (6.3-8.2)
[2022-10-23 19:26] LABS: Appearance Turbid (Clear); Bacteria None Seen /HPF (None Seen); Bilirubin Negative (Negative); Blood Negative (Negative); Epithelial Cells None Seen /HPF (None Seen); Glucose, Urine 500 mg/dL (Negative); Ketones Negative (Negative); Leukocyte Esterase Negative (Negative); Nitrite Negative (Negative); Protein,Urine Dip 30 (Negative); RBC 0-2 /HPF (0-5); Specific Gravity 1.015 (1.005-1.030); Urobilinogen 0.2 mg/dL (0.2); WBC 0-2 /HPF (0-5)
[2022-10-23 19:27] LABS: ADD URINE CULTURE? NO (NO); Hyaline Casts 0-2 /LPF (0-2)
[2022-10-23 19:32] LABS: INFLUENZA A NEGATIVE (NEGATIVE); INFLUENZA B NEGATIVE (NEGATIVE); RESPIRATORY SYNCTIAL VIRUS NEGATIVE (NEGATIVE); SARS-CoV-2 Xpert Express NEGATIVE (NEGATIVE)
[2022-10-23] MEDS ORDERED: HUMALOG SQ PRN (22:17)
[2022-10-23] MEDS: Sodium Chloride 0.9% 1000 ML 1,000 ML IV SCH (23:27)
[2022-10-23] MEDS ORDERED: HUMALOG ONE (23:47)
--- NOTE | 2022-10-24 00:09 | PCM.HP ---
History of Present Illness - Chief Complaint Chief Complaint: hypotension History of Present Illness: 47 yo wm with hx of Morbid Obesity, CKD, CHF, CAD, Gout, GEOFF, DM presents with hypotension. Pt's states some medication adjustments were made: zoloft was started and allopurinol dose doubled. No medication adjustments to BP meds.Pt has not been eating as much per . No n/v or diarrhea. Pt had noted lightheadedness when going from sitting to standing position. Had CT head in ED that was unrevealing. Started on IVFs. - Review of Systems Constitutional: No Symptoms, Fatigue Eyes: No Symptoms Ears, Nose, & Throat: No Symptoms Respiratory: No Symptoms Cardiac: No Chest Pain, No Syncope Abdominal/Gastrointestinal: No Symptoms Genitourinary Symptoms: No Symptoms Musculoskeletal: No Symptoms Skin: No Symptoms Neurological: No Symptoms Psychological: No Symptoms Endocrine: No Symptoms Hematologic/Lymphatic: No Symptoms Immunological/Allergic: No Symptoms Medications & Allergies Home Medications: Home Medication List Spironolactone [Aldactone] 50 mg PO BID 11/22/16 [History Confirmed 10/23/22] Torsemide [Demadex] 40 mg PO BID 11/22/16 [History Confirmed 10/23/22] allopurinoL [Zyloprim] 300 mg PO BID 04/03/18 [History Confirmed 10/23/22] carvediloL [Coreg] 25 mg PO BID 04/03/18 [History Confirmed 10/23/22] Probenecid 500 mg PO BID 04/05/19 [History Confirmed 10/23/22] Potassium Chloride Tab* [Klor Con] 10 meq PO BID 10/15/20 [History Confirmed 10/23/22] Albuterol Common Canister [Ventolin Common Canister] 2 puff IH Q4HPRN PRN 04/06/21 [History Confirmed 10/23/22] Dulaglutide [Trulicity] 3.5 mg SQ WEEKLY 04/06/21 [History Confirmed 10/23/22] Fluticasone/Salmeterol [Advair Hfa Common canister*] 2 puff IH BIDRT 04/06/21 [History Confirmed 10/23/22] Insulin Glargine,Hum.rec.anlog [Tatiana Rodriguez] 40 unit SQ TID 04/06/21 [History Confirmed 10/23/22] Aspirin EC 81 mg [Ecotrin 81 mg] 81 mg PO DAILY 04/12/21 [History Confirmed 10/23/22] Olmesartan Medoxomil 10 mg PO DAILY 01/19/22 [History Confirmed 10/23/22] Allergies/Adverse Reactions: Allergies Allergy/AdvReac Type Severity Reaction Status Date / Time No Known Drug Allergies Allergy Verified 10/23/22 17:57 - Past Medical History Past Medical History: Yes Neurological History: No Pertinent History ENT History: No Pertinent History Cardiac History: Hypertension Respiratory History: Asthma, Bronchitis, COPD Endocrine Medical History: Diabetes Type II Musculoskelatal History: Arthritis GI Medical History: No Pertinent History History: Renal Disease Pyscho-Social History: No Pertinent History Male Reproductive Disorders: No Pertinent History Comment: Stage 4 kidney disease,narcolepsy,sleep apnea-cpap - Past Surgical History Past Surgical History: Yes Neuro Surgical History: No Pertinent History Cardiac History: Cardiac Catheterization Respiratory Surgery: No Pertinent History GI Surgical History: No Pertinent History Genitourinary Surgical Hx: No Pertinent History Musculskeletal Surgical Hx: Other Male Surgical History: No Pertinent History Other Surgical History: removal of toe nail, knee scope. - Social History Smoking Status: Never smoker Exposure to second hand smoke: No Alcohol: None Drug Use: none Significant Family History: heart disease, hypertension - Physical Exam Vital Signs: Vital Signs - 24 hr Temp Pulse Resp BP Pulse Ox 10/23/22 22:17 97.6 F 75 18 109/58 95 10/23/22 20:41 82 28 H 106/60 98 10/23/22 19:08 87 30 H 104/59 95 10/23/22 18:51 99 10/23/22 18:50 85 21 89/55 99 10/23/22 17:55 97.3 F 85 18 99/61 96 General Appearance: no apparent distress, alert Neurologic Exam: alert, oriented x 3, cooperative, normal mood/affect Eye Exam: PERRL/EOMI Neck Exam: normal inspection Respiratory Exam: normal breath sounds Cardiovascular Exam: regular rate/rhythm Gastrointestinal/Abdomen Exam: soft, normal bowel sounds, No tenderness Back Exam: normal inspection Extremity Exam: normal inspection Skin Exam: normal color, warm Results - Labs Lab/Micro Results: Lab Results-Last 24 Hours 10/23/22 10/23/22 10/23/22 Range/Units 18:47 18:47 18:47 WBC 7.5 (4.0-10.5) x10^3/uL RBC 4.74 (4.1-5.6) x10^6/uL Hgb 13.9 (12.5-18.0) g/dL Hct 41.9 L (42-50) % MCV 88.4 (78-100) fL MCH 29.3 (26-32) pg MCHC 33.2 (32-36) g/dL RDW 14.2 H (11.5-14.0) % Plt Count 159 (150-450) x10^3/uL MPV 9.7 (7.5-11.0) fL Gran % 68.5 H (36.0-66.0) % Immature Gran % (Auto) 1.3 H (0.00-0.4) % Nucleat RBC Rel Count 0.0 (0.00-0.1) % Eos # (Auto) 0.15 (0-0.5) x10^3/uL Immature Gran # (Auto) 0.10 H (0.00-0.03) x10^3u/L Absolute Lymphs (auto) 1.48 (1.0-4.6) x10^3/uL Absolute Monos (auto) 0.60 (0.0-1.3) x10^3/uL Absolute Nucleated RBC 0.00 (0.00-0.01) x10^3u/L Lymphocytes % 19.7 L (24.0-44.0) % Monocytes % 8.0 (0.0-12.0) % Eosinophils % 2.0 (0.00-5.0) % Basophils % 0.5 (0.0-0.4) % Absolute Granulocytes 5.16 (1.4-6.9) x10^3/uL Basophils # 0.04 (0-0.4) x10^3/uL Sodium 136 L (137-145) mmol/L Potassium 4.2 (3.5-5.1) mmol/L Chloride 98 (98-107) mmol/L Carbon Dioxide 31 H (22-30) mmol/L Anion Gap 11.0 (5-15) MEQ/L BUN 29 H (9-20) mg/dL Creatinine 1.94 H (0.66-1.25) mg/dL Estimated GFR 39.6 ML/MIN Glucose 314 H (74-106) mg/dL POC Glucometer (74 to 106) mg/dL Calcium 8.5 (8.4-10.2) mg/dL Total Bilirubin 0.80 (0.2-1.3) mg/dL AST 62 H (17-59) U/L ALT 57 H (0-50) U/L Alkaline Phosphatase 148 H (38-126) U/L Troponin I < 0.012 (0.000-0.034) ng/mL Serum Total Protein 6.4 (6.3-8.2) g/dL Albumin 3.5 (3.5-5.0) g/dL Urine Color (Yellow) Urine Appearance (Clear) Urine pH (4.6-8.0) Ur Specific [place] (1.005-1.030) Urine Protein (Negative) Urine Glucose (UA) (Negative) mg/dL Urine Ketones (Negative) Urine Blood (Negative) Urine Nitrite (Negative) Urine Bilirubin (Negative) Urine Urobilinogen (0.2) mg/dL Ur Leukocyte Esterase (Negative) U Hyaline Cast (Auto) (0-2) /LPF Urine Microscopic RBC (0-5) /HPF Urine Microscopic WBC (0-5) /HPF Ur Epithelial Cells (None Seen) /HPF Urine Bacteria (None Seen) /HPF Urine Culture Reflexed (NO) Influenza Type A Ag (NEGATIVE) Influenza Type B Ag (NEGATIVE) RSV (PCR) (NEGATIVE) SARS-CoV-2 (PCR) (NEGATIVE) 10/23/22 10/23/22 10/23/22 Range/Units 18:47 19:08 22:01 WBC (4.0-10.5) x10^3/uL RBC (4.1-5.6) x10^6/uL Hgb (12.5-18.0) g/dL Hct (42-50) % MCV (78-100) fL MCH (26-32) pg MCHC (32-36) g/dL RDW (11.5-14.0) % Plt Count (150-450) x10^3/uL MPV (7.5-11.0) fL Gran % (36.0-66.0) % Immature Gran % (Auto) (0.00-0.4) % Nucleat RBC Rel Count (0.00-0.1) % Eos # (Auto) (0-0.5) x10^3/uL Immature Gran # (Auto) (0.00-0.03) x10^3u/L Absolute Lymphs (auto) (1.0-4.6) x10^3/uL Absolute Monos (auto) (0.0-1.3) x10^3/uL Absolute Nucleated RBC (0.00-0.01) x10^3u/L Lymphocytes % (24.0-44.0) % Monocytes % (0.0-12.0) % Eosinophils % (0.00-5.0) % Basophils % (0.0-0.4) % Absolute Granulocytes (1.4-6.9) x10^3/uL Basophils # (0-0.4) x10^3/uL Sodium (137-145) mmol/L Potassium (3.5-5.1) mmol/L Chloride (98-107) mmol/L Carbon Dioxide (22-30) mmol/L Anion Gap (5-15) MEQ/L BUN (9-20) mg/dL Creatinine (0.66-1.25) mg/dL Estimated GFR ML/MIN Glucose (74-106) mg/dL POC Glucometer (74 to 106) mg/dL Calcium (8.4-10.2) mg/dL Total Bilirubin (0.2-1.3) mg/dL AST (17-59) U/L ALT (0-50) U/L Alkaline Phosphatase (38-126) U/L Troponin I < 0.012 (0.000-0.034) ng/mL Serum Total Protein (6.3-8.2) g/dL Albumin (3.5-5.0) g/dL Urine Color Yellow (Yellow) Urine Appearance Turbid A (Clear) Urine pH 5.0 (4.6-8.0) Ur Specific [place] 1.015 (1.005-1.030) Urine Protein 30 (Negative) Urine Glucose (UA) 500 A (Negative) mg/dL Urine Ketones Negative (Negative) Urine Blood Negative (Negative) Urine Nitrite Negative (Negative) Urine Bilirubin Negative (Negative) Urine Urobilinogen 0.2 (0.2) mg/dL Ur Leukocyte Esterase Negative (Negative) U Hyaline Cast (Auto) 0-2 (0-2) /LPF Urine Microscopic RBC 0-2 (0-5) /HPF Urine Microscopic WBC 0-2 (0-5) /HPF Ur Epithelial Cells None Seen (None Seen) /HPF Urine Bacteria None Seen (None Seen) /HPF Urine Culture Reflexed NO (NO) Influenza Type A Ag NEGATIVE (NEGATIVE) Influenza Type B Ag NEGATIVE (NEGATIVE) RSV (PCR) NEGATIVE (NEGATIVE) SARS-CoV-2 (PCR) NEGATIVE (NEGATIVE) 10/23/22 Range/Units 23:39 WBC (4.0-10.5) x10^3/uL RBC (4.1-5.6) x10^6/uL Hgb (12.5-18.0) g/dL Hct (42-50) % MCV (78-100) fL MCH (26-32) pg MCHC (32-36) g/dL RDW (11.5-14.0) % Plt Count (150-450) x10^3/uL MPV (7.5-11.0) fL Gran % (36.0-66.0) % Immature Gran % (Auto) (0.00-0.4) % Nucleat RBC Rel Count (0.00-0.1) % Eos # (Auto) (0-0.5) x10^3/uL Immature Gran # (Auto) (0.00-0.03) x10^3u/L Absolute Lymphs (auto) (1.0-4.6) x10^3/uL Absolute Monos (auto) (0.0-1.3) x10^3/uL Absolute Nucleated RBC (0.00-0.01) x10^3u/L Lymphocytes % (24.0-44.0) % Monocytes % (0.0-12.0) % Eosinophils % (0.00-5.0) % Basophils % (0.0-0.4) % Absolute Granulocytes (1.4-6.9) x10^3/uL Basophils # (0-0.4) x10^3/uL Sodium (137-145) mmol/L Potassium (3.5-5.1) mmol/L Chloride (98-107) mmol/L Carbon Dioxide (22-30) mmol/L Anion Gap (5-15) MEQ/L BUN (9-20) mg/dL Creatinine (0.66-1.25) mg/dL Estimated GFR ML/MIN Glucose (74-106) mg/dL POC Glucometer 368 H (74 to 106) mg/dL Calcium (8.4-10.2) mg/dL Total Bilirubin (0.2-1.3) mg/dL AST (17-59) U/L ALT (0-50) U/L Alkaline Phosphatase (38-126) U/L Troponin I (0.000-0.034) ng/mL Serum Total Protein (6.3-8.2) g/dL Albumin (3.5-5.0) g/dL Urine Color (Yellow) Urine Appearance (Clear) Urine pH (4.6-8.0) Ur Specific [place] (1.005-1.030) Urine Protein (Negative) Urine Glucose (UA) (Negative) mg/dL Urine Ketones (Negative) Urine Blood (Negative) Urine Nitrite (Negative) Urine Bilirubin (Negative) Urine Urobilinogen (0.2) mg/dL Ur Leukocyte Esterase (Negative) U Hyaline Cast (Auto) (0-2) /LPF Urine Microscopic RBC (0-5) /HPF Urine Microscopic WBC (0-5) /HPF Ur Epithelial Cells (None Seen) /HPF Urine Bacteria (None Seen) /HPF Urine Culture Reflexed (NO) Influenza Type A Ag (NEGATIVE) Influenza Type B Ag (NEGATIVE) RSV (PCR) (NEGATIVE) SARS-CoV-2 (PCR) (NEGATIVE) - Radiology Impressions Radiology Exams & Impressions: Radiology Procedures Category Date Time Status HEAD WITHOUT CONTRAST [CT] Stat Exams 10/23/22 18:34 Taken - Other Procedures and Tests Respiratory Therapy 10/23/22 23:55 Respiratory MDI BID Assessment/Plan (1) Hypotension Current Visit: Yes Status: Acute Assessment & Plan: 1. Hypotension: suspect from overdiuresis and BP meds. Hold diuretics. Lower dose of coreg. Continue IVFs. 2. CARLOS: on baseline CKD. Continue IVFs 3. DM: continue humalog with meals. Continue SS 4. CHF: apparently had marked decrease in EF that has now recovered. Hold diuretics tonight. 5. GEOFF: Home CPAP 6. FEN: oral diet 7. PX: Sumanthx Kenney Thapa MD entire encounter done via telemedicine Code(s): I95.9 - HYPOTENSION, UNSPECIFIED Telemedicine Encounter - Telemedicine Encounter Telemedicine Encounter: The entirety of this encounter was performed via Telemedicine"
[2022-10-24] MEDS ORDERED: VENTOLIN COMMON CANISTER IH PRN (00:38)
[2022-10-24 03:19] LABS: Absolute Neutrophil Ct (ANC) 3.35 x10^3/uL (1.4-6.9); BASOPHIL % 0.5 % (0.0-0.4); Basophil (Absolute #) 0.03 x10^3/uL (0-0.4); Eosinophil % 2.8 % (0.00-5.0); Eosinophil (Absolute #) 0.16 x10^3/uL (0-0.5); Hematocrit 39.1 % (42-50); Hemoglobin 12.8 g/dL (12.5-18.0); IMMATURE GRAN # 0.07 x10^3u/L (0.00-0.03); IMMATURE GRAN % 1.2 % (0.00-0.4); Lymphocyte (Absolute #) 1.69 x10^3/uL (1.0-4.6); Lymphocytes % 29.1 % (24.0-44.0); Mean Cell Volume 88.5 fL (78-100); Mean Corpuscular Hgb Concent. 32.7 g/dL (32-36); Mean Platelet Volume 9.7 fL (7.5-11.0); Monocytes % 8.6 % (0.0-12.0); Neutrophil % 57.8 % (36.0-66.0); Platelet Count 144 x10^3/uL (150-450); Red Blood Count 4.42 x10^6/uL (4.1-5.6); Red Cell Distribution Width 14.4 % (11.5-14.0); White Blood Count 5.8 x10^3/uL (4.0-10.5)
[2022-10-24 03:34] LABS: ALBUMIN 3.2 g/dL (3.5-5.0); ANION GAP 11.5 MEQ/L (5-15); BILIRUBIN,TOTAL 0.5 mg/dL (0.2-1.3); Calcium 8.3 mg/dL (8.4-10.2); Creatinine 1 1.59 mg/dL (0.66-1.25); EST GLOMERULAR FILTRATION RATE 49.8 ML/MIN; Potassium 3.7 mmol/L (3.5-5.1); Total Protein 6.2 g/dL (6.3-8.2)
[2022-10-24] MEDS: Sodium Chloride 0.9% 1000 ML 1,000 ML IV SCH (05:19)
[2022-10-24] MEDS ORDERED: Advair Hfa 230/21 Mcg COMMON CANISTER IH SCH (07:00)
[2022-10-24] MEDS ORDERED: ADVAIR 500-50 DISKUS IH SCH (07:00)
[2022-10-24] MEDS ORDERED: HUMALOG SQ SCH (08:00)
[2022-10-24] MEDS: HUMALOG SQ SCH ×2 (08:06→12:03)
--- NOTE | 2022-10-24 08:40 | XRAY ---
Indication: Headache. Low blood pressure. Multiple contiguous axial images obtained through the head without contrast. Comparison: July 03, 2019 Normal appearing brain parenchyma, ventricles, and bony calvarium. Mild mucosal thickening inferior right maxillary sinus. Remaining visualized paranasal sinuses and mastoid air cells are clear. Impression: Mild paranasal sinus disease. Remaining CT head without contrast exam continues to be normal. Comment: Preliminary interpretation made by [facility]. No critical discrepancy.
[2022-10-24] MEDS ORDERED: ZYLOPRIM 300 MG PO SCH (10:00)
[2022-10-24] MEDS ORDERED: Coreg 3.125 MG PO SCH (10:00)
[2022-10-24] MEDS ORDERED: ENOXAPARIN SODIUM SQ SCH (10:00)
[2022-10-24] MEDS ORDERED: DEMADEX 20 MG PO SCH (10:00)
[2022-10-24] MEDS ORDERED: PROTONIX 40 MG IV IV SCH (10:00)
--- NOTE | 2022-10-24 10:03 | PCM.DS ---
Discharge Summary Date of Admission: 10/23/22 22:05 Admitting Physician: MATT WHITING MD Primary Care Provider: ATTILA RAINES Allergies Allergies No Known Drug Allergies Allergy (Verified 10/23/22 17:57) Hospital Summary - Hospital Course Hospital Course: Pt is a 47 yo male pt of Attila Raines with PMHx CHF, CAD, HTN, gout, DM (on insulin), CRF (stage IV), narcolepsy, GEOFF, asthma, obesity, and COPD who was admitted through ER with hypotension and CARLOS. He was short of breath, hypotensive, with RIVER and systolic BP in the 80s. Troponins are neg x 3. UA okay. He had no recent changes in BP meds, but apparently had some decreased po intake. Had recently started zoloft and increased his allopurinol. He did have normal platelets intiially, but this morning they are 144. eGFR 39.6 on admission; 49.8 this morning. I'm unable to access what his recent eGFR is, but in 2019 it was 56. This morning he is feeling fine and would like to go home. Plan is to restart t orsemide at 1/2 his home dose, if bp are fine this afternoon send home around 5 pm and have him f/u with Attila Raines this week to see if he will continue the lower dose of torsemide or return to previous dose. - Vitals & Intake/Output Vital Signs: Vital Signs Temperature 96.9 F 10/24/22 07:52 Pulse Rate 85 10/24/22 07:52 Respiratory Rate 18 10/24/22 07:52 Blood Pressure 112/59 10/24/22 07:52 O2 Sat by Pulse Oximetry 95 10/24/22 07:52 Intake & Output: Intake & Output 10/21/22 10/22/22 10/23/22 10/24/22 11:59 11:59 11:59 11:59 Intake Total 982 Balance 982 Weight 156.3 kg - Lab Result Diagrams: 10/24/22 03:15 10/24/22 03:15 Lab Results-Last 24 Hrs: Lab Results-Last 24 Hours 10/23/22 10/23/22 10/23/22 Range/Units 18:47 18:47 18:47 WBC 7.5 (4.0-10.5) x10^3/uL RBC 4.74 (4.1-5.6) x10^6/uL Hgb 13.9 (12.5-18.0) g/dL Hct 41.9 L (42-50) % MCV 88.4 (78-100) fL MCH 29.3 (26-32) pg MCHC 33.2 (32-36) g/dL RDW 14.2 H (11.5-14.0) % Plt Count 159 (150-450) x10^3/uL MPV 9.7 (7.5-11.0) fL Gran % 68.5 H (36.0-66.0) % Immature Gran % (Auto) 1.3 H (0.00-0.4) % Nucleat RBC Rel Count 0.0 (0.00-0.1) % Eos # (Auto) 0.15 (0-0.5) x10^3/uL Immature Gran # (Auto) 0.10 H (0.00-0.03) x10^3u/L Absolute Lymphs (auto) 1.48 (1.0-4.6) x10^3/uL Absolute Monos (auto) 0.60 (0.0-1.3) x10^3/uL Absolute Nucleated RBC 0.00 (0.00-0.01) x10^3u/L Lymphocytes % 19.7 L (24.0-44.0) % Monocytes % 8.0 (0.0-12.0) % Eosinophils % 2.0 (0.00-5.0) % Basophils % 0.5 (0.0-0.4) % Absolute Granulocytes 5.16 (1.4-6.9) x10^3/uL Basophils # 0.04 (0-0.4) x10^3/uL Sodium 136 L (137-145) mmol/L Potassium 4.2 (3.5-5.1) mmol/L Chloride 98 (98-107) mmol/L Carbon Dioxide 31 H (22-30) mmol/L Anion Gap 11.0 (5-15) MEQ/L BUN 29 H (9-20) mg/dL Creatinine 1.94 H (0.66-1.25) mg/dL Estimated GFR 39.6 ML/MIN Glucose 314 H (74-106) mg/dL POC Glucometer (74 to 106) mg/dL Calcium 8.5 (8.4-10.2) mg/dL Total Bilirubin 0.80 (0.2-1.3) mg/dL Direct Bilirubin (0.0-0.4) mg/dL AST 62 H (17-59) U/L ALT 57 H (0-50) U/L Alkaline Phosphatase 148 H (38-126) U/L Troponin I < 0.012 (0.000-0.034) ng/mL Serum Total Protein 6.4 (6.3-8.2) g/dL Albumin 3.5 (3.5-5.0) g/dL Urine Color (Yellow) Urine Appearance (Clear) Urine pH (4.6-8.0) Ur Specific [place] (1.005-1.030) Urine Protein (Negative) Urine Glucose (UA) (Negative) mg/dL Urine Ketones (Negative) Urine Blood (Negative) Urine Nitrite (Negative) Urine Bilirubin (Negative) Urine Urobilinogen (0.2) mg/dL Ur Leukocyte Esterase (Negative) U Hyaline Cast (Auto) (0-2) /LPF Urine Microscopic RBC (0-5) /HPF Urine Microscopic WBC (0-5) /HPF Ur Epithelial Cells (None Seen) /HPF Urine Bacteria (None Seen) /HPF Urine Culture Reflexed (NO) Influenza Type A Ag (NEGATIVE) Influenza Type B Ag (NEGATIVE) RSV (PCR) (NEGATIVE) SARS-CoV-2 (PCR) (NEGATIVE) 10/23/22 10/23/22 10/23/22 Range/Units 18:47 19:08 22:01 WBC (4.0-10.5) x10^3/uL RBC (4.1-5.6) x10^6/uL Hgb (12.5-18.0) g/dL Hct (42-50) % MCV (78-100) fL MCH (26-32) pg MCHC (32-36) g/dL RDW (11.5-14.0) % Plt Count (150-450) x10^3/uL MPV (7.5-11.0) fL Gran % (36.0-66.0) % Immature Gran % (Auto) (0.00-0.4) % Nucleat RBC Rel Count (0.00-0.1) % Eos # (Auto) (0-0.5) x10^3/uL Immature Gran # (Auto) (0.00-0.03) x10^3u/L Absolute Lymphs (auto) (1.0-4.6) x10^3/uL Absolute Monos (auto) (0.0-1.3) x10^3/uL Absolute Nucleated RBC (0.00-0.01) x10^3u/L Lymphocytes % (24.0-44.0) % Monocytes % (0.0-12.0) % Eosinophils % (0.00-5.0) % Basophils % (0.0-0.4) % Absolute Granulocytes (1.4-6.9) x10^3/uL Basophils # (0-0.4) x10^3/uL Sodium (137-145) mmol/L Potassium (3.5-5.1) mmol/L Chloride (98-107) mmol/L Carbon Dioxide (22-30) mmol/L Anion Gap (5-15) MEQ/L BUN (9-20) mg/dL Creatinine (0.66-1.25) mg/dL Estimated GFR ML/MIN Glucose (74-106) mg/dL POC Glucometer (74 to 106) mg/dL Calcium (8.4-10.2) mg/dL Total Bilirubin (0.2-1.3) mg/dL Direct Bilirubin (0.0-0.4) mg/dL AST (17-59) U/L ALT (0-50) U/L Alkaline Phosphatase (38-126) U/L Troponin I < 0.012 (0.000-0.034) ng/mL Serum Total Protein (6.3-8.2) g/dL Albumin (3.5-5.0) g/dL Urine Color Yellow (Yellow) Urine Appearance Turbid A (Clear) Urine pH 5.0 (4.6-8.0) Ur Specific [place] 1.015 (1.005-1.030) Urine Protein 30 (Negative) Urine Glucose (UA) 500 A (Negative) mg/dL Urine Ketones Negative (Negative) Urine Blood Negative (Negative) Urine Nitrite Negative (Negative) Urine Bilirubin Negative (Negative) Urine Urobilinogen 0.2 (0.2) mg/dL Ur Leukocyte Esterase Negative (Negative) U Hyaline Cast (Auto) 0-2 (0-2) /LPF Urine Microscopic RBC 0-2 (0-5) /HPF Urine Microscopic WBC 0-2 (0-5) /HPF Ur Epithelial Cells None Seen (None Seen) /HPF Urine Bacteria None Seen (None Seen) /HPF Urine Culture Reflexed NO (NO) Influenza Type A Ag NEGATIVE (NEGATIVE) Influenza Type B Ag NEGATIVE (NEGATIVE) RSV (PCR) NEGATIVE (NEGATIVE) SARS-CoV-2 (PCR) NEGATIVE (NEGATIVE) 10/23/22 10/24/22 10/24/22 Range/Units 23:39 03:15 03:15 WBC 5.8 (4.0-10.5) x10^3/uL RBC 4.42 (4.1-5.6) x10^6/uL Hgb 12.8 (12.5-18.0) g/dL Hct 39.1 L (42-50) % MCV 88.5 (78-100) fL MCH 29.0 (26-32) pg MCHC 32.7 (32-36) g/dL RDW 14.4 H (11.5-14.0) % Plt Count 144 L (150-450) x10^3/uL MPV 9.7 (7.5-11.0) fL Gran % 57.8 (36.0-66.0) % Immature Gran % (Auto) 1.2 H (0.00-0.4) % Nucleat RBC Rel Count 0.0 (0.00-0.1) % Eos # (Auto) 0.16 (0-0.5) x10^3/uL Immature Gran # (Auto) 0.07 H (0.00-0.03) x10^3u/L Absolute Lymphs (auto) 1.69 (1.0-4.6) x10^3/uL Absolute Monos (auto) 0.50 (0.0-1.3) x10^3/uL Absolute Nucleated RBC 0.00 (0.00-0.01) x10^3u/L Lymphocytes % 29.1 (24.0-44.0) % Monocytes % 8.6 (0.0-12.0) % Eosinophils % 2.8 (0.00-5.0) % Basophils % 0.5 (0.0-0.4) % Absolute Granulocytes 3.35 (1.4-6.9) x10^3/uL Basophils # 0.03 (0-0.4) x10^3/uL Sodium (137-145) mmol/L Potassium (3.5-5.1) mmol/L Chloride (98-107) mmol/L Carbon Dioxide (22-30) mmol/L Anion Gap (5-15) MEQ/L BUN (9-20) mg/dL Creatinine (0.66-1.25) mg/dL Estimated GFR ML/MIN Glucose (74-106) mg/dL POC Glucometer 368 H (74 to 106) mg/dL Calcium (8.4-10.2) mg/dL Total Bilirubin (0.2-1.3) mg/dL Direct Bilirubin (0.0-0.4) mg/dL AST (17-59) U/L ALT (0-50) U/L Alkaline Phosphatase (38-126) U/L Troponin I < 0.012 (0.000-0.034) ng/mL Serum Total Protein (6.3-8.2) g/dL Albumin (3.5-5.0) g/dL Urine Color (Yellow) Urine Appearance (Clear) Urine pH (4.6-8.0) Ur Specific [place] (1.005-1.030) Urine Protein (Negative) Urine Glucose (UA) (Negative) mg/dL Urine Ketones (Negative) Urine Blood (Negative) Urine Nitrite (Negative) Urine Bilirubin (Negative) Urine Urobilinogen (0.2) mg/dL Ur Leukocyte Esterase (Negative) U Hyaline Cast (Auto) (0-2) /LPF Urine Microscopic RBC (0-5) /HPF Urine Microscopic WBC (0-5) /HPF Ur Epithelial Cells (None Seen) /HPF Urine Bacteria (None Seen) /HPF Urine Culture Reflexed (NO) Influenza Type A Ag (NEGATIVE) Influenza Type B Ag (NEGATIVE) RSV (PCR) (NEGATIVE) SARS-CoV-2 (PCR) (NEGATIVE) 10/24/22 10/24/22 10/24/22 Range/Units 03:15 03:30 06:28 WBC (4.0-10.5) x10^3/uL RBC (4.1-5.6) x10^6/uL Hgb (12.5-18.0) g/dL Hct (42-50) % MCV (78-100) fL MCH (26-32) pg MCHC (32-36) g/dL RDW (11.5-14.0) % Plt Count (150-450) x10^3/uL MPV (7.5-11.0) fL Gran % (36.0-66.0) % Immature Gran % (Auto) (0.00-0.4) % Nucleat RBC Rel Count (0.00-0.1) % Eos # (Auto) (0-0.5) x10^3/uL Immature Gran # (Auto) (0.00-0.03) x10^3u/L Absolute Lymphs (auto) (1.0-4.6) x10^3/uL Absolute Monos (auto) (0.0-1.3) x10^3/uL Absolute Nucleated RBC (0.00-0.01) x10^3u/L Lymphocytes % (24.0-44.0) % Monocytes % (0.0-12.0) % Eosinophils % (0.00-5.0) % Basophils % (0.0-0.4) % Absolute Granulocytes (1.4-6.9) x10^3/uL Basophils # (0-0.4) x10^3/uL Sodium 139 (137-145) mmol/L Potassium 3.7 (3.5-5.1) mmol/L Chloride 101 (98-107) mmol/L Carbon Dioxide 30 (22-30) mmol/L Anion Gap 11.5 (5-15) MEQ/L BUN 30 H (9-20) mg/dL Creatinine 1.59 H (0.66-1.25) mg/dL Estimated GFR 49.8 ML/MIN Glucose 331 H (74-106) mg/dL POC Glucometer 250 H (74 to 106) mg/dL Calcium 8.3 L (8.4-10.2) mg/dL Total Bilirubin 0.50 (0.2-1.3) mg/dL Direct Bilirubin 0 (0.0-0.4) mg/dL AST 51 (17-59) U/L ALT 52 H (0-50) U/L Alkaline Phosphatase 139 H (38-126) U/L Troponin I (0.000-0.034) ng/mL Serum Total Protein 6.2 L (6.3-8.2) g/dL Albumin 3.2 L (3.5-5.0) g/dL Urine Color (Yellow) Urine Appearance (Clear) Urine pH (4.6-8.0) Ur Specific [place] (1.005-1.030) Urine Protein (Negative) Urine Glucose (UA) (Negative) mg/dL Urine Ketones (Negative) Urine Blood (Negative) Urine Nitrite (Negative) Urine Bilirubin (Negative) Urine Urobilinogen (0.2) mg/dL Ur Leukocyte Esterase (Negative) U Hyaline Cast (Auto) (0-2) /LPF Urine Microscopic RBC (0-5) /HPF Urine Microscopic WBC (0-5) /HPF Ur Epithelial Cells (None Seen) /HPF Urine Bacteria (None Seen) /HPF Urine Culture Reflexed (NO) Influenza Type A Ag (NEGATIVE) Influenza Type B Ag (NEGATIVE) RSV (PCR) (NEGATIVE) SARS-CoV-2 (PCR) (NEGATIVE) Micro Results-Entire Visit: Accuchecks Date 10/24/22 Date 10/24/22 Time 07:51 Time 00:10 - Radiology Exams Ordered Rad Exams-Entire Visit: Radiology Procedures Category Date Time Status HEAD WITHOUT CONTRAST [CT] Stat Exams 10/23/22 18:34 Completed - Procedures and Test Procedures and Tests throughout Hospitalization: Therapy Orders & Screens 10/23/22 23:55 Respiratory MDI BID Comment: Diagnosis: hypotension 10/24/22 00:37 Respiratory MDI BID Comment: Diagnosis: hypotension 10/24/22 00:38 Respiratory Therapy Assessment DAILY Comment: Diagnosis: hypotension Discharge Exam General Appearance: no apparent distress, obese Neurologic Exam: alert, oriented x 3, cooperative Eye Exam: eyes nml inspection Ears, Nose, Throat Exam: moist mucous membranes Neck Exam: normal inspection Respiratory Exam: normal breath sounds, lungs clear, No crackles/rales, No rhonchi, No wheezing Cardiovascular Exam: regular rate/rhythm, normal heart sounds, No murmur Extremity Exam: normal inspection, No pedal edema, No swelling Skin Exam: normal color, warm, dry, No rash Final Diagnosis/Problem List - Final Discharge Diagnosis/Problem (1) Hypotension Current Visit: Yes Status: Resolved Assessment & Plan: Will send home on decreased dose of coreg (from 25mg po BID to 6.25mg po BID) and 1/2 dose of torsemide (20mg po BID) - can f/u [facility] PCP this week or early next week to see if needs to continue at these doses. Code(s): I95.9 - HYPOTENSION, UNSPECIFIED (2) [id number] kidney injury Current Visit: No Status: Acute Assessment & Plan: much improved since admission. F/u with lab later this week. Code(s): N17.9 - ACUTE KIDNEY FAILURE, UNSPECIFIED; N18.9 - CHRONIC KIDNEY DISEASE, UNSPECIFIED (3) Hyperglycemia due to type 2 diabetes mellitus Current Visit: Yes Status: Chronic Code(s): E11.65 - TYPE 2 DIABETES MELLITUS WITH HYPERGLYCEMIA (4) Thrombocytopenia Current Visit: Yes Status: Acute Assessment & Plan: recheck later this week - Discharge Disposition: Home, Self-Care Condition: Good Prescriptions: New Carvedilol [Coreg ] 6.25 mg PO BID 14 Days #28 tablet Torsemide 20 mg [Demadex 20 mg] 20 mg PO BID 14 Days #28 tablet Continue Spironolactone [Aldactone] 50 mg PO BID allopurinoL [Zyloprim] 300 mg PO BID Probenecid 500 mg PO BID Potassium Chloride Tab* [Klor Con] 10 meq PO BID Dulaglutide [Trulicity] 3.5 mg SQ WEEKLY Insulin Glargine,Hum.rec.anlog [Toujeo Solostar] 40 unit SQ TID Fluticasone/Salmeterol 115/21 [Advair Hfa 115/21 Common canister*] 2 puff IH BIDRT Albuterol Common Canister [Ventolin Common Canister] 2 puff IH Q4HPRN PRN PRN Reason: Shortness Of Breath/Wheezing Aspirin EC 81 mg [Ecotrin 81 mg] 81 mg PO DAILY Olmesartan Medoxomil 10 mg PO DAILY Discontinued Torsemide [Demadex] 40 mg PO BID carvediloL [Coreg] 25 mg PO BID Follow up with: ATTILA RAINES NP [Primary Care Provider] -
[2022-10-24 15:54] VITALS: BP 136/65; PULSE 80; O2SAT 96
== END 2022-10-24 17:05 | disposition home or self-care (01) ==
LOC: ED 17:37 → MED SURG 22:05
PROVIDERS: ADMIT Internal Medicine Critical Care Medicine; ATTEND Family Medicine
DX: I95.9 Hypotension, unspecified (principal); E11.22 Type 2 diabetes mellitus with diabetic chronic kidney disease; I13.0 Hypertensive heart and chronic kidney disease with heart failure and stage 1 through stage 4 chronic kidney disease, or unspecified chronic kidney disease; N18.4 Chronic kidney disease, stage 4 (severe); I50.9 Heart failure, unspecified; E11.65 Type 2 diabetes mellitus with hyperglycemia; D69.6 Thrombocytopenia, unspecified; E66.9 Obesity, unspecified; I25.10 Atherosclerotic heart disease of native coronary artery without angina pectoris; G47.33 Obstructive sleep apnea (adult) (pediatric); Z79.899 Other long term (current) drug therapy; Z20.828 Contact with and (suspected) exposure to other viral communicable diseases
CPT/HCPCS: 0241U; 36000; 36415; 70450; 80053; 81001; 82248; 82947; 84484; 85025; 93005; 93041; 93268; 94640; 94760; 99285; 99291; G0378; J1650; J1817; A9270-GY

== ENCOUNTER 2022-11-13 06:17 | Emergency (ER) | payer MEDICARE ==
[2022-11-13] MEDS ORDERED: solu-MEDROL 80 MG, Sterile H2O 10 ml 2 ML IM ONE ×2 (06:52)
--- NOTE | 2022-11-13 06:52 | ERPHSYRPT ---
- History of Present Illness Source: patient Exam Limitations: no limitations Patient Subjective Stated Complaint: pt states he has had a cough, sore throat, headache since monday. Triage Nursing Assessment: pt alert and oriented, answers questions approp. pt ambulates into to room with steady gait noted. skin warm and dry. respirations nonlabored. lung sounds with exp wheezes noted to bilat bases. Timing/Duration: day(s) (4) Cough Quality/Degree: moderate, dry cough Possible Cause: occasional episodes Modifying Factors: Improves With: coughing Associated Symptoms: cough, sore throat Hx Tetanus, Diphtheria Vaccination/Date Given: No Hx Influenza Vaccination/Date Given: No Hx Pneumococcal Vaccination/Date Given: No <SUZIE WOLF - Last Filed: 11/13/22 06:55> <HENRY COX - Last Filed: 11/13/22 08:35> - History of Present Illness Time Seen by Provider: 11/13/22 06:35 Physician History: This is a 47-year-old overweight white male patient with history of hy pertension, asthma and bronchitis who presents with 4-day history of cough sore throat body aches. He was seen at [facility] on prior to this evaluation and has been taking some [id number] cough and flu medicine as well as Tessalon Perles which they gave him for his cough. His symptoms are no better. He does not have chest pain. He has mild shortness of breath with cough. He has no abdominal pain. He said no nausea vomiting or diarrhea. He has no known exposure to individuals with similar symptoms. Patient drove himself into the hospital emergency department. (SUZIE WOLF) Allergies/Adverse Reactions: No Known Drug Allergies Allergy (Verified 11/13/22 06:35) Home Medications: allopurinoL [Zyloprim] 300 mg PO BID 04/03/18 [History] Probenecid 500 mg PO BID 04/05/19 [History] Potassium Chloride Tab* [Klor Con] 10 meq PO BID 10/15/20 [History] Albuterol Common Canister [Ventolin Common Canister] 2 puff IH Q4HPRN PRN 04/06/21 [History] Dulaglutide [Trulicity] 0.5 ml SQ WEEKLY 04/06/21 [History] Insulin Glargine,Hum.rec.anlog [Toujeo Solostar] 70 unit SQ BID 04/06/21 [History] Aspirin EC 81 mg [Ecotrin 81 mg] 81 mg PO DAILY 04/12/21 [History] Citalopram Hydrobromide 20 mg* [ceLEXa 20 MG] 20 mg PO DAILY 11/13/22 [History] Fluticasone/Salmeterol [Advair Hfa 230-21 Mcg Inhaler] 1 inh IH BID 11/13/22 [History] Insulin Lispro [Humalog Kwikpen] 40 unit SQ TIDAC 11/13/22 [History] Nitroglycerin 0.4 mg Tablet [Nitrostat 0.4 MG Tablet] 0.4 mg SL UD 11/13/22 [History] Travel Risk - International Travel Have you traveled outside of the country in past 3 weeks: No - Coronavirus Screening Are you exhibiting any of the following symptoms?: Yes Symptoms: Cough: New Onset, Headaches/Body Aches/Fatigue Close contact with a COVID-19 positive Pt in past 14-21 Days: No - Vaccine Status Have you recieved a Covid-19 vaccination: Yes Associate Professor Of 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: Moderna - Vaccination Dates Date of 2cond Vaccination (if applicable): 2021 <SUZIE WOLF - Last Filed: 11/13/22 06:55> - Review of Systems Constitutional: No Symptoms Eyes: No Symptoms Ears, Nose, & Throat: Throat Pain Respiratory: Cough Cardiac: No Symptoms Abdominal/Gastrointestinal: No Symptoms Genitourinary Symptoms: No Symptoms Musculoskeletal: Arthralgias, Myalgias Skin: No Symptoms Neurological: No Symptoms Psychological: No Symptoms Endocrine: No Symptoms Hematologic/Lymphatic: No Symptoms Immunological/Allergic: No Symptoms All Other Systems: Reviewed and Negative <SUZIE WOLF - Last Filed: 11/13/22 06:55> - Past Medical History Pertinent Past Medical History: Yes Neurological History: No Pertinent History ENT History: No Pertinent History Cardiac History: Hypertension Respiratory History: Asthma, Bronchitis, COPD Endocrine Medical History: Diabetes Type II Musculoskeletal History: Arthritis GI Medical History: No Pertinent History History: Renal Disease Psycho-Social History: No Pertinent History Male Reproductive Disorders: No Pertinent History Other Medical History: Stage 4 kidney disease,narcolepsy,sleep apnea-cpap - Past Surgical History Past Surgical History: Yes Neuro Surgical History: No Pertinent History Cardiac: Cardiac Catheterization Respiratory: No Pertinent History Gastrointestinal: No Pertinent History Genitourinary: No Pertinent History Musculoskeletal: Other Male Surgical History: No Pertinent History Other Surgical History: removal of toe nail, knee scope. - Social History Smoking Status: Former smoker Exposure to second hand smoke: Yes Alcohol Use: None Drug Use: none Patient Lives Alone: Yes Significant Family History: heart disease, hypertension <SUZIE WOLF - Last Filed: 11/13/22 06:55> - Physical Exam General Appearance: no apparent distress, alert, anxiety, obese Eye Exam: PERRL/EOMI, eyes nml inspection Ears, Nose, Throat Exam: normal ENT inspection, moist mucous membranes Neck Exam: normal inspection, non-tender, supple, full range of motion Respiratory Exam: normal breath sounds, lungs clear, No chest tenderness, No respiratory distress Cardiovascular Exam: regular rate/rhythm, normal heart sounds, normal peripheral pulses Gastrointestinal/Abdomen Exam: soft, normal bowel sounds, No tenderness Rectal Exam: not done Back Exam: normal inspection, normal range of motion, CVA tenderness Extremity Exam: normal inspection, normal range of motion, pelvis stable Neurologic Exam: alert, oriented x 3, cooperative, criminal defense attorney II-XII nml as tested, normal mood/affect, nml cerebellar function, nml station & gait, sensation nml Skin Exam: normal color, warm, dry Lymphatic Exam: No adenopathy SpO2 Interpretation: normal SpO2: 98 O2 Delivery: Room Air <SUZIE WOLF - Last Filed: 11/13/22 06:55> - Nursing Vital Signs Nursing Vital Signs: Initial Vital Signs Temperature 98.6 F 11/13/22 06:22 Pulse Rate 82 11/13/22 06:22 Respiratory Rate 18 11/13/22 06:22 Blood Pressure 143/83 11/13/22 06:22 O2 Sat by Pulse Oximetry 98 11/13/22 06:22 Pain Scale Pain Intensity 4 - Course Nursing assessment & vital signs reviewed: Yes <SUZIE WOLF - Last Filed: 11/13/22 06:55> Ordered Tests: Active Orders 24 hr Category Date Time Status CHEST 1 VIEW (PORTABLE) Stat Exams 11/13/22 06:52 Taken Respiratory Therapy Assessment DAILY RT 11/13/22 08:24 Active Medication Summary Discontinued Medications Generic Name Dose Route Start Last Admin Trade Name Uzma BARRIGA Reason Stop Dose Admin Albuterol/Ipratropium Confirm 11/13/22 07:05 Ipratropium/Albuterol Sulfate 3 Ml Ampul.Neb Administered 11/13/22 07:06 Dose 3 ml IH .STK-MED ONE Albuterol/Ipratropium 3 ml 11/13/22 07:12 11/13/22 07:10 Ipratropium/Albuterol Sulfate 3 Ml Ampul.Neb IH 11/13/22 07:13 3 ml STAT ONE Administration Methylprednisolone Sodium 0 mg 11/13/22 06:52 11/13/22 07:02 Succinate 80 mg/ Sterile Water IM 11/13/22 06:53 Not Given 2 ml STAT ONE Methylprednisolone Sodium 0 mg 11/13/22 06:54 11/13/22 07:01 Succinate 125 mg/ Sterile IM 11/13/22 06:55 125 mg Water 2 ml STAT ONE Administration Methylprednisolone Sodium Succinate Confirm 11/13/22 07:00 Methylprednis Sod Succ 125 Mg/2 Ml Vial Administered 11/13/22 07:01 Dose 125 mg .ROUTE .STK-MED ONE Sterile Water Confirm 11/13/22 07:00 Water For Injection,Sterile 10 Ml Vial Administered 11/13/22 07:01 Dose 10 ml IJ .STK-MED ONE Lab/Rad Data: Laboratory Results 11/13/22 Range/Units 07:04 Influenza Type A Ag NEGATIVE (NEGATIVE) Influenza Type B Ag NEGATIVE (NEGATIVE) RSV (PCR) NEGATIVE (NEGATIVE) SARS-CoV-2 (PCR) NEGATIVE (NEGATIVE) Group A Strep Antibody NOT DETECTED (NEGATIVE) - Progress Air Movement: good Blood Culture(s) Obtained: No Antibiotics given: Yes Counseled pt/family regarding: lab results, diagnosis, need for follow-up, rad results <SUZIE WOLF - Last Filed: 11/13/22 06:55> - Progress Progress Note: 11/13/22 06:50 This patient's medical issue is 1 of low complexity. Level of complexity and the work-up performed is based on the review of the patient's past medical history, review of the patient's medication list, drug allergy list, history of present illness and findings on physical examination. The work-up performed includes a chest x-ray, flu swabs, strep throat. The patient is signed out to Dr. Henry Cooper who I am transferring the care to at shift change. He will follow-up on the results of the test and make final disposition. (SUZIE WOLF) - Departure Departure Disposition: Home Critical Care Time: No <SUZIE WOLF - Last Filed: 11/13/22 06:55> - Departure Departure Disposition: Home Critical Care Time: No <HENRY COX - Last Filed: 11/13/22 08:35> - Departure Clinical Impression: Upper respiratory infection Condition: Stable Referrals: ATTILA RÍOS NP [Primary Care Provider] - Follow up/PCP as directed Additional Instructions: Take your medication as prescribed. Follow-up with your primary care physician for further evaluation and management. Prescriptions: Promethazine/Dextromethorphan [Promethazine-Dm 6.25-15 mg/5Ml] 118 ml PO TID PRN #7 Albuterol 8 gm Mdi Hfa [Ventolin Hfa MDI] 8 gm IH Q4H #1
[2022-11-13] MEDS ORDERED: solu-MEDROL 125 MG, Sterile H2O 10 ml 2 ML IM ONE ×2 (06:54)
[2022-11-13] MEDS ORDERED: solu-MEDROL ONE (07:00)
[2022-11-13] MEDS ORDERED: Sterile H2O 10 ml IJ ONE (07:00)
[2022-11-13] MEDS ORDERED: DUONEB 0.5-3 MG/3 ml Neb IH ONE ×2 (07:05→07:12)
[2022-11-13 07:32] LABS: Group A Strep NOT DETECTED (NEGATIVE)
[2022-11-13 07:44] LABS: INFLUENZA A NEGATIVE (NEGATIVE); INFLUENZA B NEGATIVE (NEGATIVE); RESPIRATORY SYNCTIAL VIRUS NEGATIVE (NEGATIVE); SARS-CoV-2 Xpert Express NEGATIVE (NEGATIVE)
[2022-11-13 08:27] VITALS: PULSE 79; O2SAT 99
[2022-11-13 08:28] VITALS: BP 123/84
--- NOTE | 2022-11-13 09:31 | XRAY ---
Indication: Cough. Comparison: May 26, 2021 Portable chest is now clear. Heart not enlarged. Bony thorax intact again with mild degenerative changes. No new/acute abnormalities.
== END 2022-11-13 08:48 | disposition home or self-care (01) ==
LOC: ED 06:17
DX: J06.9 Acute upper respiratory infection, unspecified (principal); R05.1 Acute cough; J02.9 Acute pharyngitis, unspecified; M79.10 Myalgia, unspecified site; R06.02 Shortness of breath; E11.22 Type 2 diabetes mellitus with diabetic chronic kidney disease; I12.9 Hypertensive chronic kidney disease with stage 1 through stage 4 chronic kidney disease, or unspecified chronic kidney disease; N18.4 Chronic kidney disease, stage 4 (severe); Z79.4 Long term (current) use of insulin; Z79.84 Long term (current) use of oral hypoglycemic drugs; Z79.899 Other long term (current) drug therapy
CPT/HCPCS: 0241U; 71045; 87651; 94640; 96372; 99283; J2930; A9270-GY

== ENCOUNTER 2022-11-16 20:14 | Emergency (ER) | payer MEDICARE ==
[2022-11-16 22:24] LABS: Absolute Neutrophil Ct (ANC) 6.02 x10^3/uL (1.4-6.9); BASOPHIL % 0.6 % (0.0-0.4); Basophil (Absolute #) 0.06 x10^3/uL (0-0.4); Eosinophil % 3.2 % (0.00-5.0); Hematocrit 44.7 % (42-50); Hemoglobin 14.6 g/dL (12.5-18.0); IMMATURE GRAN # 0.04 x10^3u/L (0.00-0.03); IMMATURE GRAN % 0.4 % (0.00-0.4); Lymphocyte (Absolute #) 2.27 x10^3/uL (1.0-4.6); Lymphocytes % 24.4 % (24.0-44.0); Mean Cell Volume 88.7 fL (78-100); Mean Corpuscular Hgb Concent. 32.7 g/dL (32-36); Mean Platelet Volume 9.5 fL (7.5-11.0); Monocytes % 6.5 % (0.0-12.0); Neutrophil % 64.9 % (36.0-66.0); Platelet Count 170 x10^3/uL (150-450); Red Blood Count 5.04 x10^6/uL (4.1-5.6); Red Cell Distribution Width 14.5 % (11.5-14.0); White Blood Count 9.3 x10^3/uL (4.0-10.5)
[2022-11-16 22:37] LABS: ALBUMIN 3.7 g/dL (3.5-5.0); ANION GAP 11.2 MEQ/L (5-15); BILIRUBIN,TOTAL 0.5 mg/dL (0.2-1.3); Calcium 9.1 mg/dL (8.4-10.2); Creatinine 1 1.54 mg/dL (0.66-1.25); EST GLOMERULAR FILTRATION RATE 51.7 ML/MIN; Total Protein 7.3 g/dL (6.3-8.2)
--- NOTE | 2022-11-16 23:01 | ERPHSYRPT ---
- History of Present Illness Time Seen by Provider: 11/16/22 22:56 Source: patient Exam Limitations: no limitations Patient Subjective Stated Complaint: pt states "started coughing and felt like I was gonna pass out, couldn't hardly breathe. lasted about 45mins." Triage Nursing Assessment: pt brought to room 4 via wheelchair after he ambulated to standing scale for weight acquisition independently with a slow steady gait. pt is alert and oriented times three and able to speak in complete sentences. and is able to move all extremities without pain or difficulty. resp even and unlabored on room air. intermittent dry cough noted without any change to oxygen saturation, HR, or RR. c/o headache and sore throat "from coughing". having pt take multiple deep breaths for lung auscultation didn't result in coughing. Physician History: Patient is a 47-year-old male presents to our emergency department with his for evaluation of cough. states patient has been evaluated by his primary care provider and [facility] care. Patient currently on doxycycline.. Patient now experiencing shortness of breath. Cough is relentless and associated with near syncopal episodes. No trauma. No fever. Symptoms are mild to moderate in intensity. No specific worsening improving factors. Patient voices no other complaints or concerns at this time. Portions of this note were created with voice recognition technology. There may be grammatical, spelling, punctuation or sound alike errors Timing/Duration: week(s) (1 week) Activities at Onset: none Severity of Dyspnea-Max: moderate Severity of Dyspnea-Current: mild Possible Cause: no prior episodes Modifying Factors: Improves With: nothing Allergies/Adverse Reactions: No Known Drug Allergies Allergy (Verified 11/13/22 06:35) Home Medications: allopurinoL [Zyloprim] 300 mg PO BID 04/03/18 [History] Probenecid 500 mg PO BID 04/05/19 [History] Potassium Chloride Tab* [Klor Con] 10 meq PO BID 10/15/20 [History] Albuterol Common Canister [Ventolin Common Canister] 2 puff IH Q4HPRN PRN 04/06/21 [History] Dulaglutide [Trulicity] 0.5 ml SQ WEEKLY 04/06/21 [History] Insulin Glargine,Hum.rec.anlog [Tatiana Mahoneyar] 70 unit SQ BID 04/06/21 [History] Aspirin EC 81 mg [Ecotrin 81 mg] 81 mg PO DAILY 04/12/21 [History] Citalopram Hydrobromide 20 mg* [ceLEXa 20 MG] 20 mg PO DAILY 11/13/22 [History] Fluticasone/Salmeterol [Advair Hfa 230-21 Mcg Inhaler] 1 inh IH BID 11/13/22 [History] Insulin Lispro [Humalog Kwikpen] 40 unit SQ TIDAC 11/13/22 [History] Nitroglycerin 0.4 mg Tablet [Nitrostat 0.4 MG Tablet] 0.4 mg SL UD 11/13/22 [History] Doxycycline Hyclate 100 mg PO BID 11/16/22 [History] Hx Tetanus, Diphtheria Vaccination/Date Given: No Hx Influenza Vaccination/Date Given: No Hx Pneumococcal Vaccination/Date Given: No Immunizations Up to Date: No Travel Risk - International Travel Have you traveled outside of the country in past 3 weeks: No - Coronavirus Screening Are you exhibiting any of the following symptoms?: No Close contact with a COVID-19 positive Pt in past 14-21 Days: No - Vaccine Status Have you recieved a Covid-19 vaccination: Yes Treatment Coordinator: Moderna - Vaccination Dates Date of 2cond Vaccination (if applicable): 2021 - Review of Systems Constitutional: No Symptoms, No Fever, No Chills Eyes: No Symptoms Ears, Nose, & Throat: No Symptoms Respiratory: No Symptoms, No Cough, No Dyspnea Cardiac: No Symptoms, No Chest Pain, No Edema, No Syncope Abdominal/Gastrointestinal: No Symptoms, No Abdominal Pain, No Nausea, No Vomiting, No Diarrhea Genitourinary Symptoms: No Symptoms, No Dysuria Musculoskeletal: No Symptoms, No Back Pain, No Neck Pain Skin: No Symptoms, No Rash Neurological: No Symptoms, No Dizziness, No Focal Weakness, No Sensory Changes Psychological: No Symptoms Endocrine: No Symptoms Hematologic/Lymphatic: No Symptoms Immunological/Allergic: No Symptoms All Other Systems: Reviewed and Negative - Past Medical History Pertinent Past Medical History: Yes Neurological History: No Pertinent History ENT History: No Pertinent History Cardiac History: Hypertension Respiratory History: Asthma, Bronchitis, COPD Endocrine Medical History: Diabetes Type II Musculoskeletal History: Arthritis GI Medical History: No Pertinent History History: Renal Disease Psycho-Social History: No Pertinent History, Depression Male Reproductive Disorders: No Pertinent History Other Medical History: Stage 4 kidney disease,narcolepsy,sleep apnea-cpap - Past Surgical History Past Surgical History: Yes Neuro Surgical History: No Pertinent History Cardiac: Cardiac Catheterization Respiratory: No Pertinent History Gastrointestinal: No Pertinent History Genitourinary: No Pertinent History Musculoskeletal: Other Male Surgical History: No Pertinent History Other Surgical History: removal of toe nail, knee scope. - Social History Smoking Status: Former smoker Exposure to second hand smoke: No Alcohol Use: None Drug Use: none Patient Lives Alone: No Significant Family History: heart disease, hypertension - Nursing Vital Signs Nursing Vital Signs: Initial Vital Signs Temperature 96.3 F 11/16/22 21:42 Pulse Rate 90 11/16/22 21:42 Respiratory Rate 16 11/16/22 21:42 Blood Pressure 137/90 11/16/22 21:42 O2 Sat by Pulse Oximetry 99 11/16/22 21:42 Pain Scale Pain Intensity 0 - Physical Exam General Appearance: no apparent distress, alert Eye Exam: PERRL/EOMI, eyes nml inspection, scleral icterus Ears, Nose, Throat Exam: hearing grossly normal, normal ENT inspection, normal pharynx Neck Exam: normal inspection, supple, full range of motion Respiratory Exam: diminished breath sounds, other Cardiovascular/Chest Exam: normal heart sounds, regular rate/rhythm Abdominal/Gastrointestinal Exam: soft, No tenderness, No distention, No mass Extremity Exam: non-tender, normal range of motion, normal inspection, no calf tenderness, swelling (2+ pitting edema bilateral lower extremities) Neurologic Exam: alert, oriented x 3, cooperative, silver cleaner II-XII nml as tested, sensation nml, No motor deficits Skin Exam: normal color, warm, No dry Lymphatic Exam: No adenopathy SpO2 Interpretation: normal SpO2: 95 O2 Delivery: Room Air - Course Nursing assessment & vital signs reviewed: Yes EKG Interpreted by Me: RATE (90), Sinus Rhythm, NORMAL AXIS, NORMAL INTERVALS (Prolonged NM interval) - Radiology Exams Chest X-ray Interpretation: Interpreted by me (Negative chest x-ray) Ordered Tests: Active Orders 24 hr Category Date Time Status Transfer Driver STAT Care 11/16/22 22:08 Active EKG-ER Only STAT Care 11/16/22 22:07 Active IV Insertion STAT Care 11/16/22 22:07 Active Pulse Oximetry (ED) STAT Care 11/16/22 22:07 Active CHEST 1 VIEW (PORTABLE) Routine Exams 11/17/22 00:06 Taken CBC W DIFF Stat Lab 11/16/22 22:20 Completed CMP Stat Lab 11/16/22 22:20 Completed D-DIMER QUANTITATIVE Stat Lab 11/16/22 22:20 Completed NT PRO BNPII Stat Lab 11/16/22 22:20 Completed TROPONIN Q4H Lab 11/16/22 22:20 Completed TROPONIN Q4H Lab 11/17/22 02:15 Ordered TROPONIN Q4H Lab 11/17/22 06:15 Ordered Respiratory Therapy Assessment DAILY RT 11/16/22 23:40 Active Medication Summary Discontinued Medications Generic Name Dose Route Start Last Admin Trade Name Freq PRN Reason Stop Dose Admin Albuterol/Ipratropium 3 ml 11/16/22 23:17 11/16/22 23:36 Ipratropium/Albuterol Sulfate 3 Ml Ampul.Neb IH 11/16/22 23:18 3 ml STAT ONE Administration Albuterol/Ipratropium Confirm 11/16/22 23:33 Ipratropium/Albuterol Sulfate 3 Ml Ampul.Neb Administered 11/16/22 23:34 Dose 3 ml IH .STK-MED ONE Prednisone 60 mg 11/17/22 00:53 11/17/22 00:56 Prednisone 20 Mg Tablet PO 11/17/22 00:54 60 mg STAT ONE Administration Prednisone Confirm 11/17/22 00:55 Prednisone 20 Mg Tablet Administered 11/17/22 00:56 Dose 60 mg .ROUTE .STK-MED ONE Lab/Rad Data: Laboratory Result Diagrams 11/16/22 22:20 11/16/22 22:20 Laboratory Results 11/16/22 11/16/22 11/16/22 Range/Units 22:20 22:20 22:20 WBC (4.0-10.5) x10^3/uL RBC (4.1-5.6) x10^6/uL Hgb (12.5-18.0) g/dL Hct (42-50) % MCV (78-100) fL MCH (26-32) pg MCHC (32-36) g/dL RDW (11.5-14.0) % Plt Count (150-450) x10^3/uL MPV (7.5-11.0) fL Gran % (36.0-66.0) % Immature Gran % (Auto) (0.00-0.4) % Nucleat RBC Rel Count (0.00-0.1) % Eos # (Auto) (0-0.5) x10^3/uL Immature Gran # (Auto) (0.00-0.03) x10^3u/L Absolute Lymphs (auto) (1.0-4.6) x10^3/uL Absolute Monos (auto) (0.0-1.3) x10^3/uL Absolute Nucleated RBC (0.00-0.01) x10^3u/L Lymphocytes % (24.0-44.0) % Monocytes % (0.0-12.0) % Eosinophils % (0.00-5.0) % Basophils % (0.0-0.4) % Absolute Granulocytes (1.4-6.9) x10^3/uL Basophils # (0-0.4) x10^3/uL D-Dimer 0.49 (0.0-0.50) mg/L Sodium (137-145) mmol/L Potassium (3.5-5.1) mmol/L Chloride (98-107) mmol/L Carbon Dioxide (22-30) mmol/L Anion Gap (5-15) MEQ/L BUN (9-20) mg/dL Creatinine (0.66-1.25) mg/dL Estimated GFR ML/MIN Glucose (74-106) mg/dL Calcium (8.4-10.2) mg/dL Total Bilirubin (0.2-1.3) mg/dL AST (17-59) U/L ALT (0-50) U/L Alkaline Phosphatase (38-126) U/L Troponin I < 0.012 (0.000-0.034) ng/mL NT-Pro-B Natriuret Pep 32.5 (<300) pg/mL Serum Total Protein (6.3-8.2) g/dL Albumin (3.5-5.0) g/dL 11/16/22 11/16/22 Range/Units 22:20 22:20 WBC 9.3 (4.0-10.5) x10^3/uL RBC 5.04 (4.1-5.6) x10^6/uL Hgb 14.6 (12.5-18.0) g/dL Hct 44.7 (42-50) % MCV 88.7 (78-100) fL MCH 29.0 (26-32) pg MCHC 32.7 (32-36) g/dL RDW 14.5 H (11.5-14.0) % Plt Count 170 (150-450) x10^3/uL MPV 9.5 (7.5-11.0) fL Gran % 64.9 (36.0-66.0) % Immature Gran % (Auto) 0.4 (0.00-0.4) % Nucleat RBC Rel Count 0.0 (0.00-0.1) % Eos # (Auto) 0.30 (0-0.5) x10^3/uL Immature Gran # (Auto) 0.04 H (0.00-0.03) x10^3u/L Absolute Lymphs (auto) 2.27 (1.0-4.6) x10^3/uL Absolute Monos (auto) 0.60 (0.0-1.3) x10^3/uL Absolute Nucleated RBC 0.00 (0.00-0.01) x10^3u/L Lymphocytes % 24.4 (24.0-44.0) % Monocytes % 6.5 (0.0-12.0) % Eosinophils % 3.2 (0.00-5.0) % Basophils % 0.6 (0.0-0.4) % Absolute Granulocytes 6.02 (1.4-6.9) x10^3/uL Basophils # 0.06 (0-0.4) x10^3/uL D-Dimer (0.0-0.50) mg/L Sodium 137 (137-145) mmol/L Potassium 4.0 (3.5-5.1) mmol/L Chloride 98 (98-107) mmol/L Carbon Dioxide 32 H (22-30) mmol/L Anion Gap 11.2 (5-15) MEQ/L BUN 30 H (9-20) mg/dL Creatinine 1.54 H (0.66-1.25) mg/dL Estimated GFR 51.7 ML/MIN Glucose 293 H (74-106) mg/dL Calcium 9.1 (8.4-10.2) mg/dL Total Bilirubin 0.50 (0.2-1.3) mg/dL AST 40 (17-59) U/L ALT 47 (0-50) U/L Alkaline Phosphatase 114 (38-126) U/L Troponin I (0.000-0.034) ng/mL NT-Pro-B Natriuret Pep (<300) pg/mL Serum Total Protein 7.3 (6.3-8.2) g/dL Albumin 3.7 (3.5-5.0) g/dL - Progress Progress: improved Air Movement: fair Progress Note: Patient is a 47-year-old male presents to emergency department for evaluation of a cough. Patient has a history of CHF. There are some pitting edema observed on exam. Cardiac work-up essentially negative. CBC negative. CMP reveals chronic renal sufficiency. Glucose 293. No anion gap acidosis. Chest x-ray negative. EKG normal sinus rhythm. Patient received albuterol nebulizer treatment in our ED. Symptoms improved. Patient received a dose of prednisone as well. A prescription for prednisone for the patient's pharmacy. Patient currently on doxycycline. Patient can pleated a course of azithromycin. A pertussis swab ordered. Results pending. Troponin negative. BNP negative. No indication for further work-up. Patient is not on an ANGI inhibitor. Patient has a follow-up appointment with his primary care provider scheduled for tomorrow. Patient will follow-up as scheduled. Will discharge home. at bedside. They voiced no other complaints or concerns at this time. Portions of this note were created with voice recognition technology. There may be grammatical, spelling, punctuation or sound alike errors Complexity of problem addressed is moderate new diagnosis of uncertain prognosis. No critical care time. Complexity of data reviewed and analyzed is moderate. Test ordered test independently reviewed by Dr. Abdullahi. Risk of complication and or risk morbidity/mortality of patient management is high. Patient received nebulizer treatment in our ED. A prescription for prednisone was forwarded to patient's pharmacy. She agrees to follow-up with primary care doctor tomorrow as planned. at bedside. They voiced no other complaints or concerns at this time. Portions of this note were created with voice recognition technology. There may be grammatical, spelling, punctuation or sound alike errors 11/17/22 01:06 Blood Culture(s) Obtained: No Antibiotics given: No Counseled pt/family regarding: lab results, diagnosis, need for follow-up, rad results - Departure Departure Disposition: Home Clinical Impression: Cough, Bronchitis Condition: Stable Critical Care Time: No Referrals: ATTILA RÍOS NP [Primary Care Provider] - Follow up/PCP as directed Prescriptions: Prednisone 10 mg [Deltasone 10 mg] 60 mg PO DAILY 3 Days #18 tablet
[2022-11-16] MEDS ORDERED: DUONEB 0.5-3 MG/3 ml Neb IH ONE ×2 (23:17→23:33)
[2022-11-17 00:34] VITALS: BP 141/78
[2022-11-17] MEDS ORDERED: DELTASONE 20 MG PO ONE (00:53)
[2022-11-17 00:55] VITALS: O2SAT 95
[2022-11-17] MEDS ORDERED: DELTASONE 20 MG ONE (00:55)
[2022-11-17 01:03] VITALS: PULSE 88
--- NOTE | 2022-11-17 08:48 | XRAY ---
Indication: Short of breath. Comparison: November 13, 2022 Portable chest underinflated accentuating cardiopulmonary structures. No focal infiltrate, consolidation, or large effusion. No new/acute findings.
== END 2022-11-17 01:14 | disposition home or self-care (01) ==
LOC: ED 20:14
DX: J40 Bronchitis, not specified as acute or chronic (principal); R05.9 Cough, unspecified; R06.02 Shortness of breath; R55 Syncope and collapse; I12.9 Hypertensive chronic kidney disease with stage 1 through stage 4 chronic kidney disease, or unspecified chronic kidney disease; E11.22 Type 2 diabetes mellitus with diabetic chronic kidney disease; N18.4 Chronic kidney disease, stage 4 (severe); Z79.52 Long term (current) use of systemic steroids; Z79.85 Long-term (current) use of injectable non-insulin antidiabetic drugs; Z79.4 Long term (current) use of insulin; Z79.899 Other long term (current) drug therapy
CPT/HCPCS: 36000; 36415; 71045; 80053; 83880; 84484; 85025; 85379; 87798; 93005; 93041; 94640; 94760; 99284; A9270-GY

== ENCOUNTER 2023-07-24 09:11 | Emergency (ER) | payer MEDICARE ==
[2023-07-24 10:07] VITALS: TEMP 96.2
--- NOTE | 2023-07-24 10:43 | ERPHSYRPT ---
- History of Present Illness Time Seen by Provider: 07/24/23 10:34 Source: patient Exam Limitations: no limitations Patient Subjective Stated Complaint: "I have been having pain in my lower left side of my back since last monday. The pain keeps getting worse." Triage Nursing Assessment: Pt presents to ER with complaints of lower left sided back pains x 1 week, pt appears in pain and is guarding left lower back. Pt ambulates with weak gait assistance of cane. Pt rates pain 10/10 scale. States it has steadly got worse. Pt states pain is sharp and constant. Pt denies injury. Area appears tender upon exam and slightly swollen. Took tylenol last night but not helping pain. Pt is alert and oriented x 3. Skin is pink, warm, and dry. Respirations are easy. Denies any numbness or tingling to extremities. Physician History: Pt states he has had samuel left lower back pain radiating to below his left knee for the past week; denies fever, chest pain, shortness of air, trauma. Allergies/Adverse Reactions: No Known Drug Allergies Allergy (Verified 07/24/23 10:07) Home Medications: allopurinoL [Zyloprim] 300 mg PO BID 04/03/18 [History] Probenecid 500 mg PO BID 04/05/19 [History] Potassium Chloride Tab* [Klor Con] 10 meq PO BID 10/15/20 [History] Insulin Glargine,Hum.rec.anlog [Tatiana Solostar] 60 unit SQ BID 04/06/21 [History] Aspirin EC 81 mg [Ecotrin 81 mg] 81 mg PO DAILY 04/12/21 [History] Citalopram Hydrobromide 20 mg* [ceLEXa 20 MG] 20 mg PO DAILY 11/13/22 [History] Fluticasone/Salmeterol [Advair Hfa 230-21 Mcg Inhaler] 1 inh IH BID 11/13/22 [History] Insulin Lispro [Humalog Kwikpen] 30 unit SQ TIDAC 11/13/22 [History] Nitroglycerin 0.4 mg Tablet [Nitrostat 0.4 MG Tablet] 0.4 mg SL UD PRN 11/13/22 [History] Dapagliflozin Propanediol [Farxiga] 10 mg PO DAILY 07/24/23 [History] Olmesartan Medoxomil [Benicar] 10 mg PO DAILY 07/24/23 [History] Tirzepatide [Mounjaro] 10 mg SQ WEEKLY 07/24/23 [History] Hx Tetanus, Diphtheria Vaccination/Date Given: Yes Hx Influenza Vaccination/Date Given: Yes Hx Pneumococcal Vaccination/Date Given: No Immunizations Up to Date: Yes Travel Risk - International Travel Have you traveled outside of the country in past 3 weeks: No - Coronavirus Screening Are you exhibiting any of the following symptoms?: No Close contact with a COVID-19 positive Pt in past 14-21 Days: No - Vaccine Status Have you recieved a Covid-19 vaccination: Yes 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: [employer] - Vaccination Dates Date of 2cond Vaccination (if applicable): 2021 - Review of Systems Constitutional: No Fever Respiratory: No Dyspnea Cardiac: No Chest Pain Abdominal/Gastrointestinal: No Abdominal Pain, No Nausea, No Vomiting, No Diarrhea Genitourinary Symptoms: No Dysuria Musculoskeletal: Back Pain Neurological: No Headache - Past Medical History Pertinent Past Medical History: Yes Neurological History: No Pertinent History ENT History: No Pertinent History Cardiac History: Hypertension Respiratory History: Asthma, Bronchitis, COPD Endocrine Medical History: Diabetes Type II Musculoskeletal History: Arthritis GI Medical History: No Pertinent History History: Renal Disease Psycho-Social History: No Pertinent History, Depression Male Reproductive Disorders: No Pertinent History Other Medical History: Stage 4 kidney disease,narcolepsy,sleep apnea-cpap - Past Surgical History Past Surgical History: Yes Neuro Surgical History: No Pertinent History Cardiac: Cardiac Catheterization Respiratory: No Pertinent History Gastrointestinal: No Pertinent History Genitourinary: No Pertinent History Musculoskeletal: Other Male Surgical History: No Pertinent History Other Surgical History: removal of toe nail, knee scope. - Social History Smoking Status: Former smoker Exposure to second hand smoke: No Alcohol Use: None Drug Use: none Patient Lives Alone: No Significant Family History: heart disease, hypertension - Nursing Vital Signs Nursing Vital Signs: Initial Vital Signs Temperature 96.2 F 07/24/23 09:59 Pulse Rate 81 07/24/23 09:59 Respiratory Rate 20 07/24/23 09:59 Blood Pressure 125/58 07/24/23 09:59 O2 Sat by Pulse Oximetry 98 07/24/23 09:59 Pain Scale Pain Intensity [Left Back] 10 Pain Intensity 0 - Physical Exam General Appearance: alert Eye Exam: PERRL/EOMI Ears, Nose, Throat Exam: pharynx normal Neck Exam: normal inspection Respiratory Exam: normal breath sounds Cardiovascular Exam: normal heart sounds Gastrointestinal Exam: normal bowel sounds Back Exam: decreased range of motion Extremity Exam: normal range of motion Peripheral Pulses: dorsalis-pedis (R): 2+, dorsalis-pedis (L): 2+ Neurologic Exam: alert, cooperative, sensation nml, No motor deficits Skin Exam: warm, dry SpO2 Interpretation: normal SpO2: 98 O2 Delivery: Room Air - Course Nursing assessment & vital signs reviewed: Yes - CT Exams Lumbar Spine CT Interpretation: Tele-radiologist Report (Straightened lumbar curve possibly denoting muscle spasm. Spondylosis with multiple level disc/osteophytes complexes are seen with facet joint arthropathy causing central and peripheral neural compromise. Mild sacroiliac joint arthropathy.) Ordered Tests: Active Orders 24 hr Category Date Time Status LUMBAR SPINE W/O [CT] Stat Exams 07/24/23 10:42 Completed Medication Summary Discontinued Medications Generic Name Dose Route Start Last Admin Trade Name Freq PRN Reason Stop Dose Admin Hydrocodone Bitart/Acetaminophen 2 tab 07/24/23 10:43 07/24/23 10:48 Hydrocodone/Apap 5/325 1 Tab Tablet PO 07/24/23 10:44 2 tab STAT ONE Administration Hydrocodone Bitart/Acetaminophen Confirm 07/24/23 10:44 Hydrocodone/Apap 5/325 1 Tab Tablet Administered 07/24/23 10:45 Dose 2 tab .ROUTE .STK-MED ONE Ketorolac Tromethamine 60 mg 07/24/23 10:42 07/24/23 10:48 Ketorolac Tromethamine 30 Mg/Ml Inj IM 07/24/23 10:43 60 mg STAT ONE Administration Ketorolac Tromethamine Confirm 07/24/23 10:44 Ketorolac Tromethamine 30 Mg/Ml Inj Administered 07/24/23 10:45 Dose 60 mg .ROUTE .STK-MED ONE - Progress Progress: improved Counseled pt/family regarding: diagnosis, need for follow-up, rad results Medical Desision Making - Diagnostic Testing Diagnostic test were ordered, analyzed, and reviewed by me: Yes Radiological Interpretation: Teleradiologist Report - Departure Departure Disposition: Home Clinical Impression: Low back pain, Sciatica Condition: Stable Critical Care Time: No Referrals: ATTLIA RÍOS NP [Primary Care Provider] - Follow up/PCP as directed Instructions: Low Back Pain (DC), Sciatica (DC) Additional Instructions: Follow up with private doctor tomorrow. Prescriptions: Naproxen 500 mg [Naprosyn 500 MG] 500 mg PO BID #20 tablet
[2023-07-24] MEDS ORDERED: TORAdol 30 mg Injection ONE (10:44)
[2023-07-24] MEDS ORDERED: NORCO 5/325 MG ONE (10:44)
[2023-07-24] MEDS: TORAdol 30 mg Injection IM ONE (10:48)
[2023-07-24] MEDS: NORCO 5/325 MG PO ONE (10:48)
--- NOTE | 2023-07-24 12:32 | XRAY ---
CLINICAL HISTORY:left lower back pain COMPARISON:None. TECHNIQUE:CT scan of lumbar spine was performed without contrast. Axial images were obtained with reconstructed coronal and sagittal images and submitted for interpretation. FINDINGS: Straightened lumbar curve possibly denoting muscle spasm. Multiple marginal osteophytes. Normal vertebral bodies height and alignment. Intact vertebral bodies and neural arches. No definite fractures could be detected. Segmental disc analysis level by level: T11-T12 posterior and left paracentral posterior osteophytes is seen measuring 2.4mm indenting the ventral thecal sac. T12-L1 left paracentral posterior osteophyte is seen measuring 2.1mm indenting the ventral thecal sac. L1-L2 posterior and bilateral paracentral disc/ osteophyte complex is seen measuring 4.8mm indenting the ventral thecal sac and encroaching upon both neural exit pathways. L2-L3 diffuse disc bulge is seen measuring 2.1mm indenting the ventral thecal sac and encroaching upon both neural exit pathways, more on the right side. L3-L4 diffuse disc bulge with posterior and biposterolateral protrusion is seen measuring 2.6mm indenting the ventral thecal sac and markedly encroaching upon both neural exit pathways. L4-L5 Posterior and biposterolateral disc/osteophyte complex is seen measuring 5.0mm indenting the ventral thecal sac and markedly encroaching upon both neural exit pathways. Moderate spinal canal stenosis noted. L5-S1 Posterior and biposterolateral disc/osteophyte complex is seen measuring 2.3mm indenting the ventral thecal sac and markedly encroaching upon both neural exit pathways. Facet joint arthropathy is seen as evidenced by marginal osteophytes and marginal sclerosis, adding more to canal compromise at all levels. No retro paraspinal soft tissue masses. No developmental canal stenosis. Marginal sclerosis of both sacroiliac joints denoting mild arthropathy. IMPRESSION: 1. Straightened lumbar curve possibly denoting muscle spasm. 2. Spondylosis with multiplevel disc/osteophytes complexes are seen with facet joint arthropathy causing central and peripheral neural compromise, findings are more marked at L4-5 level with moderate spinal canal stenosis. 3. Mild sacroiliac joint arthropathy. Electronically Signed by: Carol Arechiga MD. (07/24/2023 12:28:11 EST)
[2023-07-24 12:51] VITALS: BP 125/62; PULSE 76; RESP 18
[2023-07-24 13:05] VITALS: O2SAT 98
== END 2023-07-24 13:13 | disposition home or self-care (01) ==
LOC: ED 09:11
DX: M54.42 Lumbago with sciatica, left side (principal); I12.9 Hypertensive chronic kidney disease with stage 1 through stage 4 chronic kidney disease, or unspecified chronic kidney disease; E11.22 Type 2 diabetes mellitus with diabetic chronic kidney disease; N18.4 Chronic kidney disease, stage 4 (severe); Z79.4 Long term (current) use of insulin; Z79.84 Long term (current) use of oral hypoglycemic drugs; Z79.85 Long-term (current) use of injectable non-insulin antidiabetic drugs; Z79.899 Other long term (current) drug therapy
CPT/HCPCS: 72131; 96372; 99283; J1885; A9270-GY

== ENCOUNTER 2024-02-26 09:19 | Emergency (ER) | payer MEDICARE ==
--- NOTE | 2024-02-26 09:22 | ERPHSYRPT ---
- History of Present Illness Time Seen by Provider: 02/26/24 09:21 Source: patient, family Allergies/Adverse Reactions: No Known Drug Allergies Allergy (Verified 07/24/23 10:07) Home Medications: allopurinoL [Zyloprim] 300 mg PO BID 04/03/18 [History] Probenecid 500 mg PO BID 04/05/19 [History] Potassium Chloride Tab* [Klor Con] 10 meq PO BID 10/15/20 [History] Insulin Glargine,Hum.rec.anlog [Toujeo Solostar] 60 unit SQ BID 04/06/21 [History] Aspirin EC 81 mg [Ecotrin 81 mg] 81 mg PO DAILY 04/12/21 [History] Citalopram Hydrobromide 20 mg* [ceLEXa 20 MG] 20 mg PO DAILY 11/13/22 [History] Fluticasone Propion/Salmeterol [Advair Hfa 230-21 Mcg Inhaler] 1 inh IH BID 11/13/22 [History] Insulin Lispro [Humalog Kwikpen] 30 unit SQ TIDAC 11/13/22 [History] Nitroglycerin 0.4 mg Tablet [Nitrostat 0.4 MG Tablet] 0.4 mg SL UD PRN 11/13/22 [History] Dapagliflozin Propanediol [Farxiga] 10 mg PO DAILY 07/24/23 [History] Olmesartan Medoxomil [Benicar] 10 mg PO DAILY 07/24/23 [History] Tirzepatide [Mounjaro] 10 mg SQ WEEKLY 07/24/23 [History] Hx Tetanus, Diphtheria Vaccination/Date Given: Yes Hx Influenza Vaccination/Date Given: Yes Hx Pneumococcal Vaccination/Date Given: No - Past Medical History Pertinent Past Medical History: Yes Neurological History: No Pertinent History ENT History: No Pertinent History Cardiac History: Hypertension Respiratory History: Asthma, Bronchitis, COPD Endocrine Medical History: Diabetes Type II Musculoskeletal History: Arthritis GI Medical History: No Pertinent History History: Renal Disease Psycho-Social History: No Pertinent History, Depression Male Reproductive Disorders: No Pertinent History Other Medical History: Stage 4 kidney disease,narcolepsy,sleep apnea-cpap - Past Surgical History Past Surgical History: Yes Neuro Surgical History: No Pertinent History Cardiac: Cardiac Catheterization Respiratory: No Pertinent History Gastrointestinal: No Pertinent History Genitourinary: No Pertinent History Musculoskeletal: Other Male Surgical History: No Pertinent History Other Surgical History: removal of toe nail, knee scope. Significant Family History: heart disease, hypertension - Social History Smoking Status: Former smoker Exposure to second hand smoke: No Alcohol Use: None Drug Use: none Patient Lives Alone: No - Departure Referrals: ATTILA RÍOS TEXT[employer] WORKER [Primary Care Provider] - Follow up/PCP as directed
[2024-02-26 09:37] VITALS: BP 111/66; PULSE 83; RESP 18; TEMP 97.8; O2SAT 96
== END 2024-02-26 09:58 | disposition left against medical advice (07) ==
LOC: ED 09:19
DX: E11.649 Type 2 diabetes mellitus with hypoglycemia without coma (principal)
CPT/HCPCS: 82947; G0463; 99282